=== PATIENT | female | born 1935 | race African-American/Black ===

== ENCOUNTER → 2017-04-29 | Emergency (ER) | payer OTHER, BC ==
[~2017-04-29] MED LIST: CARVEDILOL 12.5 MG TABLET (FP) ONE; CARVEDILOL 25 MG TABLET (FP) PO ONE
[2017-04-29 01:27] VITALS: TEMP 98.4; BMI 19.7
--- NOTE | 2017-04-29 01:32 | PDOC ---
*Physical Exam - Vital Signs Last Vital Signs Temp Pulse Resp BP Pulse Ox 98.4 F 87 20 212/95 98 04/29/17 01:26 04/29/17 01:26 04/29/17 01:26 04/29/17 01:26 04/29/17 01:26 ED Treatment Course - LABORATORY CBC & Chemistry Diagram: 04/29/17 03:12 04/29/17 03:12 Medical Decision Making - Medical Decision Making 04/29/17 01:32 Pt seen by the Advanced Practice Provider under my direct supervision Ancillary studies reviewed I agree with plan as outlined by the Advanced Practice Provider BRITTANY Fulton *DC/Admit/Observation/Transfer Diagnosis at time of Disposition: Surgical wound hemorrhage after dental procedure - Discharge Dispostion Disposition: TRANSFER ACUTE CARE/OTHER HOSP - Referrals Referrals: Rajni Roca MD [Primary Care Provider] -
--- NOTE | 2017-04-29 03:43 | PDOC ---
History of Present Illness - General Chief Complaint: Toothache Stated Complaint: BLEEDING/TOOTH EXTRACTION Time Seen by Provider: 04/29/17 01:20 History Source: Patient Exam Limitations: No Limitations - History of Present Illness Initial Comments: 04/29/17 03:37 81-year-old female with a history of thrombocytopenia and HTN presents to the emergency department complaining of bleeding to her gums after tooth extraction that was done at approximately noon time today. Patient states approximately 4 hours after her tooth extraction, she noticed some blood oozing which has increased in flow. Patient denies headache, dizziness, lightheadedness, fever, chills, nausea/vomiting, chest pain, shortness of breath, dental pain DDS: Dr. Olmos [phone] 0455hrs: Spoke to Dr. David/ dental resident at [facility] 0502hrs: Spoke to Dr. Valdivia/oral resident accepts 0525hrs: Dr Pemberton/MARIANA MD accepting pt Timing/Duration: 1-3 hours Past History - Past Medical History Allergies/Adverse Reactions: Allergies Allergy/AdvReac Type Severity Reaction Status Date / Time No Known Allergies Allergy Verified 04/29/17 01:26 Home Medications: Ambulatory Orders Aspirin Coated [Ecotrin -] 81 mg PO DAILY 12/19/11 Carvedilol [Coreg] 25 mg PO BID 12/19/11 Atorvastatin Ca [Lipitor] 10 mg PO HS 12/27/15 Hydroxyurea [Droxia] 400 mg PO DAILY 06/12/16 Anemia: No Asthma: No Cancer: No Cardiac Disorders: Yes ("irregular heartbeat") CVA: No COPD: No CHF: No Dementia: No Diabetes: No GI Disorders: No Disorders: No HTN: Yes Hypercholesterolemia: Yes Liver Disease: No Seizures: No Thyroid Disease: No - Surgical History Abdominal Surgery: No Appendectomy: No Cardiac Surgery: No Cholecystectomy: No Lung Surgery: No Neurologic Surgery: No Orthopedic Surgery: Yes (s/p right rotator cuff repair) - Immunization History Immunization Up to Date: Yes - Psycho/Social/Smoking Cessation Hx Anxiety: No Suicidal Ideation: No Smoking History: Never smoked Have you smoked in the past 12 months: No Information on smoking cessation initiated: No Hx Alcohol Use: No Drug/Substance Use Hx: No Substance Use Type: None Hx Substance Use Treatment: No Review of Systems - Review of Systems Able to Perform ROS?: Yes Comments:: 04/29/17 03:44 CONSTITUTIONAL: Absent: fever, chills, diaphoresis, generalized weakness, malaise, loss of appetite HEENT: Absent: rhinorrhea, nasal congestion, throat pain, throat swelling, difficulty swallowing, mouth swelling, ear pain, eye pain, visual Changes CARDIOVASCULAR: Absent: chest pain, loss of consciousness, palpitations, irregular heart rate, peripheral edema RESPIRATORY: Absent: cough, shortness of breath, dyspnea with exertion, orthopnea, wheezing, stridor, hemoptysis SKIN: Absent: rash, itching, pallor HEMATOLOGIC/IMMUNOLOGIC: + Thrombocytopenia Absent: easy bruising, lymphadenopathy, frequent infections ENDOCRINE: Absent: unexplained weight gain, unexplained weight loss, heat intolerance, cold intolerance NEUROLOGIC: Absent: headache, focal weakness or paresthesias, dizziness, unsteady gait, seizure, mental status changes, bladder or bowel incontinence PSYCHIATRIC: Absent: anxiety, depression, suicidal or homicidal ideation, hallucinations. Is the patient limited Turkish proficient: No *Physical Exam - Vital Signs Last Vital Signs Temp Pulse Resp BP Pulse Ox 98.4 F 87 20 212/95 98 04/29/17 01:26 04/29/17 01:26 04/29/17 01:26 04/29/17 01:26 04/29/17 01:26 - Physical Exam Comments: 04/29/17 03:44 GENERAL: Well developed, well nourished. Awake and alert. No acute distress. HEENT: Normocephalic, atraumatic. PERRLA, EOMI. No conjunctival pallor. Sclera are non- icteric. Moist mucous membranes. Oropharynx is clear. NECK: Supple. Full ROM. No JVD. Carotid pulses 2+ and symmetric, without bruits. No thyromegaly. No lymphadenopathy. CARDIOVASCULAR: Regular rate and rhythm. No murmurs, rubs, or gallops. Distal pulses are 2+ and symmetric. PULMONARY: No evidence of respiratory distress. Lungs clear to auscultation bilaterally. No wheezing, rales or rhonchi. SKIN: Warm and dry. Normal capillary refill. No rashes. No jaundice. Right upper right 2nd molar extraction/oozing blood ED Treatment Course - LABORATORY CBC & Chemistry Diagram: 04/29/17 03:12 04/29/17 03:12 *DC/Admit/Observation/Transfer Diagnosis at time of Disposition: Surgical wound hemorrhage after dental procedure - Discharge Dispostion Disposition: TRANSFER ACUTE CARE/OTHER HOSP - Referrals Referrals: Rajni Roca MD [Primary Care Provider] - - Transfer to Acute Care Facility Receiving Facility: [facility]
[2017-04-29 03:48] LABS: BASOPHIL 0.5 % (0-2.0); MCH 22.2 pg (25.7-33.7); MCHC 31.6 g/dl (32.0-36.0); MEAN CELL VOLUME 70.1 fl (80-96); MEAN PLT VOLUME 7.3 fl (7.5-11.1); NEUTROPHILS 74.6 % (42.8-82.8); PLATELET COUNT 1092 K/MM3 (134-434); RDW 16.6 % (11.6-15.6); WHITE BLOOD COUNT 16.5 K/mm3 (4.0-10.0)
[2017-04-29 04:02] LABS: INR 1.26 (0.82-1.09); PROTHROMBIN TIME (PATIENT) 13.9 SEC (9.98-11.88)
[2017-04-29 04:23] LABS: ALBUMIN 3.7 g/dl (3.4-5.0); ALK PHOS 89 U/L (45-117); ANION GAP 8 (8-16); BILIRUBIN,TOTAL 0.8 mg/dL (0.2-1.0); CALCIUM 9.1 mg/dL (8.5-10.1); CO2 29 mmol/L (21-32); CREATININE 1.3 mg/dL (0.55-1.02); GLUCOSE,RANDOM 103 mg/dL (74-106); SGOT/AST 13 U/L (15-37); SGPT/ALT 17 U/L (12-78); TOT PROT 6.5 g/dl (6.4-8.2)
[2017-04-29 07:20] VITALS: BP 205/90; PULSE 77
== END | disposition short-term general hospital (02) ==
LOC: JER 01:10
DX: K91.840 Postprocedural hemorrhage of a digestive system organ or structure following a digestive system procedure (principal); D69.6 Thrombocytopenia, unspecified; I10 Essential (primary) hypertension; I49.9 Cardiac arrhythmia, unspecified; E78.00 Pure hypercholesterolemia, unspecified; Z79.82 Long term (current) use of aspirin
CPT/HCPCS: 36415; 80053; 85025; 85610; 86850; 86900; 86901; 99282-25

== ENCOUNTER 2017-08-14 22:56 | Inpatient (IN) | payer OTHER, BC ==
--- NOTE | 2017-08-15 00:42 | PDOC ---
Attending Attestation - HPI HPI: 08/15/17 02:42 81 F with a significant past medical history of thrombocytopenia, HTN, HLD, irregular heartbeat, who presents to the emergency department with cough and SOB for 4 days. She reports she began to produce clear sputum today. She reports of associated lightheadedness, generalized fatigue, and chest tightness. The patient has been taking Motrin, but daughter reports the patient feels warm. The patient denies any history of asthma or COPD. Pt denies CP or GRIFFITH. Pt denies F/C, n/v/d. Pt denies dysuria, frequency, urgency and hematuria. <Pamella Ag - Last Filed: 08/15/17 02:42> - Resident Resident Name: Ian Magallanes - ED Attending Attestation I have performed the following: I have examined & evaluated the patient, The case was reviewed & discussed with the resident, I agree w/resident's findings & plan, Exceptions are as noted - Physicial Exam PE: GENERAL: Awake, alert, and fully oriented, in no acute distress HEAD: No signs of trauma EYES: PERRLA, EOMI, sclera anicteric, conjunctiva clear ENT: Auricles normal inspection, hearing grossly normal, nares patent, oropharynx clear without exudates. Moist mucosa NECK: Normal ROM, supple, no lymphadenopathy, JVD, or masses LUNGS: +Rhonchi at bases B/L. Intermittent loose cough. HEART: Regular rate and rhythm, normal S1 and S2, no murmurs, rubs or gallops ABDOMEN: Soft, nontender, normoactive bowel sounds. No guarding, no rebound. No masses EXTREMITIES: Normal range of motion, no edema. No clubbing or cyanosis. No cords, erythema, or tenderness NEUROLOGICAL: Cranial nerves II through XII grossly intact. Normal speech, normal gait SKIN: Warm, Dry, normal turgor, no rashes or lesions noted. - Medical Decision Making 08/15/17 04:05 Pt with loose cough, weakness, ill-appearing. D/w Dr. Roca, will admit. <Jocy Saavedra - Last Filed: 08/15/17 04:07>
--- NOTE | 2017-08-15 01:09 | PDOC ---
History of Present Illness - General Chief Complaint: Sore Throat Stated Complaint: WEAKNESS Time Seen by Provider: 08/15/17 00:40 - History of Present Illness Initial Comments: 08/15/17 01:01 81 yo F with h/o HTN, HLD and thrombocytopenia who presents with cough. Patient reports developing worsening cough 4 days ago with new onset clear sputum production within past 24 hours. Also endorses SOB, Barnhart, generalized fatigue, lightheadedness, chest tightness, and pleuritic chest pain. Symptoms refractory to OTC Ibuprofen. Denies hemoptysis,fevers/chills, N/V, abdominal pain, urinary complaints, weakness. States that she is unable to take Promethazine, codeine, Dextromethrophan, or Guanifescein d/t hallucinations, and altered mental status reaction. Denies h/o asthma/copd, CAD, [place], CVA/TIA. No home O2 or duoneb requirments. PCP Dr. gomez. Past History - Past Medical History Allergies/Adverse Reactions: Allergies Allergy/AdvReac Type Severity Reaction Status Date / Time promethazine Allergy Verified 08/14/17 23:12 cloreciden Allergy Uncoded 08/14/17 23:14 Home Medications: Ambulatory Orders Aspirin Coated [Ecotrin -] 81 mg PO DAILY 12/19/11 Carvedilol [Coreg] 25 mg PO BID 12/19/11 Atorvastatin Ca [Lipitor] 10 mg PO HS 12/27/15 Hydroxyurea [Droxia] 400 mg PO DAILY 06/12/16 Azithromycin [Zithromax 250mg Tablets -] 250 mg PO DAILY 5 Days #5 tablet MDD 1 tab 08/15/17 Anemia: No Asthma: No Cancer: No Cardiac Disorders: Yes ("irregular heartbeat") CVA: No COPD: No CHF: No Dementia: No Diabetes: No GI Disorders: No Disorders: No HTN: Yes Hypercholesterolemia: Yes Liver Disease: No Seizures: No Thyroid Disease: No Other medical history: thrombocytopenia - Surgical History Abdominal Surgery: No Appendectomy: No Cardiac Surgery: No Cholecystectomy: No Lung Surgery: No Neurologic Surgery: No Orthopedic Surgery: Yes (s/p right rotator cuff repair) - Immunization History Immunization Up to Date: Yes - Suicide/Smoking/Psychosocial Hx Smoking History: Never smoked Have you smoked in the past 12 months: No Hx Alcohol Use: No Drug/Substance Use Hx: No Substance Use Type: None Hx Substance Use Treatment: No Review of Systems - Review of Systems Comments:: 08/15/17 01:10 GENERAL/CONSTITUTIONAL: + Fatigue. No fever or chills. No weakness. HEAD, EYES, EARS, NOSE AND THROAT: No change in vision. No ear pain or discharge. No sore throat.- CARDIOVASCULAR: No chest pain or shortness of breath RESPIRATORY: + cough. No wheezing, or hemoptysis. GASTROINTESTINAL: No nausea, vomiting, diarrhea or constipation. GENITOURINARY: No dysuria, frequency, or change in urination. MUSCULOSKELETAL: No joint or muscle swelling or pain. No neck or back pain. SKIN: No rash NEUROLOGIC: No headache, vertigo, loss of consciousness, or change in strength/ sensation. ENDOCRINE: No increased thirst. No abnormal weight change HEMATOLOGIC/LYMPHATIC: No anemia, easy bleeding, or history of blood clots. ALLERGIC/IMMUNOLOGIC: No hives or skin allergy. *Physical Exam - Vital Signs Last Vital Signs Temp Pulse Resp BP Pulse Ox 86 20 136/75 98 08/14/17 23:08 08/14/17 23:08 08/14/17 23:08 08/14/17 23:08 - Physical Exam Comments: 08/15/17 01:09 GENERAL: Awake, alert, and fully oriented, in no acute distress HEAD: No signs of trauma, normocephalic, atraumatic EYES: PERRLA, EOMI, sclera anicteric, conjunctiva clear ENT:Hearing grossly normal, nares patent, oropharynx clear without exudates. Moist mucosa NECK: Normal ROM, supple, no lymphadenopathy, JVD, or masses LUNGS: Coarse BL rales and rhonci. No distress, speaks full sentences, clear to auscultation bilaterally HEART: Regular rate and rhythm, normal S1 and S2, no murmurs, rubs or gallops, peripheral pulses normal and equal bilaterally. EXTREMITIES : Normal inspection, Normal range of motion, no edema. No clubbing or cyanosis. SKIN: Warm, Dry, normal turgor, no rashes or lesions noted. ED Treatment Course - LABORATORY CBC & Chemistry Diagram: 08/15/17 01:20 08/15/17 01:20 Medical Decision Making - Medical Decision Making 08/15/17 01:11 81 yo F with h/o HTN, HLD and thrombocytopenia who presents worsening cough 4 days ago with new onset clear sputum production within past 24 hours.Asx. w/ SOB , Barnhart, generalized fatigue, lightheadedness, chest tightness, and pleuritic chest pain. Denies hemoptysis,fevers/chills, N/V, abdominal pain, urinary complaints, weakness. Denies h/o asthma/copd, CAD, [place], CVA/TIA. No home O2 or duoneb requirments.Physical exam with diffuse coarse lung sounds. Hemodynamically stable. Patient symptoms most likely 2/2 acute bronchitis vs. PNA. ED Course: CBC, CMP, PT/INR CXR, EKG CXR: Right lower lung base increased interstitial markings. 08/15/17 02:03 EKG: NSR with evidence of RBBB, and absent STD, ESTEPHANIA, or TWI. 08/15/17 02:13 WBC: 18.4 08/15/17 02:32 CMP: Unremarkable Per Dr. Wayne patient is stable for discharge but will need to f/u in office today or tommorrow. 08/15/17 03:20 Azithromycin x1 500 mg. Patient discharged with return precautions. Sent Azithromycin to pharmacy. 250 mg PO QD *DC/Admit/Observation/Transfer Diagnosis at time of Disposition: Pneumonia Qualifiers: Pneumonia type: due to unspecified organism Laterality: right Lung location: lower lobe of lung Qualified Code(s): J18.1 - Lobar pneumonia, unspecified organism - Discharge Dispostion Condition at time of disposition: Stable Admit: No - Referrals Referrals: Rajni Roca MD [Primary Care Provider] - - Patient Instructions Printed Discharge Instructions: DI for Pneumonia -- Adult Additional Instructions: Please return to the emergency department with any new or worsening symptoms or concerns. Please follow up with your primary care physician within one week. Please take antibiotics as perscribed. - Post Discharge Activity - Attestations Physician Attestion: 08/15/17 02:35 I attest to the documentation provided in this note.
[2017-08-15 01:56] LABS: BASOPHIL 0.2 % (0-2.0); MCHC 32.2 g/dl (32.0-36.0); MEAN CELL VOLUME 77.5 fl (80-96); MEAN PLT VOLUME 7.8 fl (7.5-11.1); NEUTROPHILS 87.4 % (42.8-82.8); PLATELET COUNT 748 K/MM3 (134-434); RDW 22.5 % (11.6-15.6); WHITE BLOOD COUNT 18.4 K/mm3 (4.0-10.0)
[2017-08-15 02:09] LABS: INR 1.28 (0.82-1.09); PROTHROMBIN TIME (PATIENT) 14.5 SEC (9.98-11.88)
[2017-08-15 02:19] LABS: ALBUMIN 3.4 g/dl (3.4-5.0); ANION GAP 8 (8-16); CALCIUM 8.7 mg/dL (8.5-10.1); CO2 28 mmol/L (21-32); CREATININE 1.3 mg/dL (0.55-1.02); GLUCOSE,RANDOM 144 mg/dL (74-106); SGOT/AST 16 U/L (15-37); SGPT/ALT 17 U/L (12-78)
[2017-08-15 02:21] LABS: ALK PHOS 90 U/L (45-117); BILIRUBIN,TOTAL 1.1 mg/dL (0.2-1.0); TOT PROT 6.6 g/dl (6.4-8.2)
[2017-08-15 02:33] LABS: URINE APPEARANCE SLCLOUDY; URINE BILIRUBIN NEGATIVE (NEGATIVE); URINE BLOOD NEGATIVE (NEGATIVE); URINE COLOR AMBER; URINE GLUCOSE (UA) NEGATIVE (NEGATIVE); URINE KETONE NEGATIVE (NEGATIVE); URINE NITRITE NEGATIVE (NEGATIVE); URINE UROBILINOGEN NEGATIVE mg/dL (0.2-1.0)
[2017-08-15 02:44] LABS: URINE LEUK ESTERASE 2+ (NEGATIVE); URINE PROTEIN 2+ (NEGATIVE)
[2017-08-15 02:52] LABS: URINE HYALINE CAST 2 /lpf; URINE MUCUS RARE; URINE RBC 8 /hpf (0-3); URINE WBC 3 /hpf (3-5)
[2017-08-15] MEDS ORDERED: AZITHROMYCIN 500 MG TABLET PO ONE (02:59)
[2017-08-15] MEDS ORDERED: CEFTRIAXONE 1 GM in DEXTROSE 5%-WATER - 50 ML IVPB ONE (03:27)
[2017-08-15] MEDS ORDERED: AZITHROMYCIN IVPB 500 MG in DEXTROSE 5%-WATER - 250 ML IVPB ONE (03:27)
[2017-08-15] MEDS ORDERED: ONDANSETRON 4 MG/2 ML VIAL IVPB ONE (05:08)
[2017-08-15] MEDS ORDERED: CEFTRIAXONE 1 GM/50 ML BAG ONE (07:33)
[2017-08-15 09:12] LABS: URINE LEUK ESTERASE TRACE (NEGATIVE)
[2017-08-15] MEDS ORDERED: guaiFENesin/D-METHORPHAN HB 10 ML UNIT-DOSE CUPS PO PRN (09:25)
--- NOTE | 2017-08-15 09:40 | HP ---
Admitting History and Physical - Admission Chief Complaint: productive cough / general malaise / weaknes History of Present Illness: 81 yo F with h/o HTN, HLD and thrombocythemia ( on Hydroxyurea) who presents with cough. Patient reports developing worsening cough 4 days ago with new onset clear sputum production within past 24 hours. Also endorses SOB, Barnhart, generalized fatigue, lightheadedness, chest tightness, and pleuritic chest pain. Symptoms refractory to OTC Ibuprofen. Denies hemoptysis,fevers/chills, N/V , abdominal pain, urinary complaints, weakness. States that she is unable to take Promethazine, codeine, Dextromethrophan, or Guanifescein d/t hallucinations , and altered mental status reaction. Denies h/o asthma/copd, CAD, [place], CVA/TIA. No home O2 or duoneb requirments. History Source: Patient, Medical Record, Caregiver Limitations to Obtaining History: No Limitations - Past Medical History Cardiovascular: Yes: HTN Pulmonary: No: Asthma, COPD, O2 Dependent Reproductive: Yes: Postmenopausal Heme/Onc: Yes: Other (thrombocythemia) - Smoking History Smoking history: Never smoked Have you smoked in the past 12 months: No - Alcohol/Substance Use Hx Alcohol Use: No - Social History ADL: Support Services History of Recent Travel: No Home Medications - Allergies Allergies/Adverse Reactions: Allergies Allergy/AdvReac Type Severity Reaction Status Date / Time promethazine Allergy Verified 08/14/17 23:12 cloreciden Allergy Uncoded 08/14/17 23:14 - Home Medications Home Medications: Ambulatory Orders Aspirin Coated [Ecotrin -] 81 mg PO DAILY 12/19/11 Carvedilol [Coreg] 25 mg PO BID 12/19/11 Atorvastatin Ca [Lipitor] 10 mg PO HS 12/27/15 Hydroxyurea [Droxia] 400 mg PO DAILY 06/12/16 Review of Systems - Review of Systems Constitutional: reports: Chills, Malaise, Weakness. denies: Fever, Night Sweats Eyes: reports: No Symptoms HENT: denies: Difficult Swallowing, Nasal Congestion, Throat Pain Neck: reports: No Symptoms Cardiovascular: reports: Shortness of Breath, Other (atypical chest pain / pleuritic chest pain) Respiratory: reports: Cough, SOB Gastrointestinal: reports: No Symptoms Genitourinary: reports: No Symptoms Breasts: reports: No Symptoms Reported Musculoskeletal: reports: Joint Pain Integumentary: reports: No Symptoms Endocrine: reports: No Symptoms Hematology/Lymphatic: reports: No Symptoms Psychiatric: reports: No Symptoms Physical Examination Vital Signs: Vital Signs Temperature 99 F 08/15/17 08:07 Pulse Rate 98 H 08/15/17 08:07 Respiratory Rate 19 08/15/17 08:07 Blood Pressure 150/93 08/15/17 08:07 O2 Sat by Pulse Oximetry (%) 98 08/15/17 08:07 Constitutional: Yes: Well Nourished, Mild Distress (due to coughing) Eyes: Yes: WNL HENT: Yes: WNL, Atraumatic, Normocephalic Neck: Yes: Supple, Trachea Midline, Other (no JVD) Cardiovascular: Yes: Regular Rate and Rhythm Respiratory: Yes: Cough, On Nasal O2, Rhonchi (left lower / mid post thorax). No: Accessory Muscle Use, Dullness, Rales, Wheezes Gastrointestinal: Yes: WNL ...Rectal Exam: Yes: Deferred Renal/: Yes: WNL Musculoskeletal: Yes: WNL Extremities: Yes: WNL Edema: No Peripheral Pulses: Left Radial: 2+, Right Radial: 2+, Left Doralis Pedis: 2+, Right Dorsalis Pedis: 2+, Left Femoral: 2+, Right Femoral: 2+ Integumentary: Yes: WNL Neurological: Yes: Alert, Oriented ...Motor Strength: WNL Psychiatric: Yes: Alert, Oriented Labs: CBC, BMP 08/15/17 01:20 08/15/17 01:20 Problem List - Problems (1) Tracheobronchitis Assessment/Plan: acute presentation / along with fever / general malaise and cough no infiltrate on cxr scattered rhonchi / congestion on exam Code(s): J40 - BRONCHITIS, NOT SPECIFIED ACUTE OR CHRONIC (2) Pneumonia Assessment/Plan: tx for atypical pneumonia clinically congested and scattered rhonchi productive cough Code(s): J18.9 - PNEUMONIA, UNSPECIFIED ORGANISM Qualifiers: Pneumonia type: due to unspecified organism Laterality: bilateral Lung location: unspecified part of lung Qualified Code(s): J18.9 - Pneumonia, unspecified organism (3) HTN (hypertension) Assessment/Plan: continue medications monitor BP Code(s): I10 - ESSENTIAL (PRIMARY) HYPERTENSION (4) HLD (hyperlipidemia) Code(s): E78.5 - HYPERLIPIDEMIA, UNSPECIFIED (5) Thrombocythemia Code(s): D47.3 - ESSENTIAL (HEMORRHAGIC) THROMBOCYTHEMIA (6) Headache Code(s): R51 - HEADACHE Qualifiers: Headache type: unspecified Headache chronicity pattern: episodic headache Intractability: not intractable Qualified Code(s): R51 - Headache (7) Lightheadedness Code(s): R42 - DIZZINESS AND GIDDINESS
[2017-08-15] MEDS ORDERED: CEFTRIAXONE 1 G/50 ML PREMIX 50 ML IVPB SCH (10:00)
[2017-08-15] MEDS ORDERED: CEFTRIAXONE 1 GM in DEXTROSE 5%-WATER - 100 ML IVPB SCH (10:00)
[2017-08-15] MEDS: HYDROXYUREA 500 MG CAPSULE PO SCH (10:59)
[2017-08-15] MEDS: ASPIRIN COATED 81 MG TABLET.EC PO SCH (10:59)
[2017-08-15] MEDS: CARVEDILOL 25 MG TABLET (FP) PO SCH ×2 (10:59→21:11)
[2017-08-15] MEDS: PANTOPRAZOLE 20 MG TABLET (FP) PO SCH (10:59)
[2017-08-15] MEDS ORDERED: ALBUTEROL SO4 2.5/IPRATROPIUM 0.5 INH SOL 3 ML VIAL.NEB. NEB ONE (14:13)
[2017-08-15] MEDS: ALBUTEROL SO4 2.5/IPRATROPIUM 0.5 INH SOL 3 ML VIAL.NEB. NEB SCH ×2 (14:19→21:50)
--- NOTE | 2017-08-15 14:42 | EKG ---
Test Reason : Blood Pressure : / mmHG Vent. Rate : 086 BPM Atrial Rate : 086 BPM P-R Int : 146 ms QRS Dur : 118 ms QT Int : 404 ms P-R-T Axes : 000 081 031 degrees QTc Int : 483 ms SINUS RHYTHM WITH PREMATURE ATRIAL COMPLEXES RIGHT BUNDLE BRANCH BLOCK ABNORMAL ECG WHEN COMPARED WITH ECG OF 12-JUN-2016 17:49, ST NO LONGER ELEVATED IN INFERIOR LEADS Confirmed by LUZ PALOMARES, IAIN ([id number]) on 08/15/2017 2:42:13 PM Referred By: Confirmed By:IAIN ESCOBAR MD
[2017-08-15] MEDS ORDERED: ACETAMINOPHEN 325 MG TABLET (FP) PO ONE (15:38)
[2017-08-15] MEDS: ACETAMINOPHEN 325 MG TABLET (FP) PO SCH (17:56)
[2017-08-15] MEDS: ATORVASTATIN CA 10 MG TABLET (FP) PO SCH (21:11)
[2017-08-16] MEDS: ACETAMINOPHEN 325 MG TABLET (FP) PO SCH ×4 (00:27→18:46)
[2017-08-16] MEDS: ALBUTEROL SO4 2.5/IPRATROPIUM 0.5 INH SOL 3 ML VIAL.NEB. NEB SCH ×3 (06:56→23:43)
[2017-08-16 08:04] LABS: BASOPHIL 0.1 % (0-2.0); MCH 24.8 pg (25.7-33.7); MCHC 31.9 g/dl (32.0-36.0); MEAN CELL VOLUME 77.7 fl (80-96); MEAN PLT VOLUME 7.6 fl (7.5-11.1); NEUTROPHILS 73.5 % (42.8-82.8); PLATELET COUNT 675 K/MM3 (134-434); RDW 21.8 % (11.6-15.6); WHITE BLOOD COUNT 13.2 K/mm3 (4.0-10.0)
[2017-08-16 08:28] LABS: ANION GAP 9 (8-16); CO2 25 mmol/L (21-32); GLUCOSE,RANDOM 89 mg/dL (74-106)
[2017-08-16 08:32] LABS: CREATININE 1.3 mg/dL (0.55-1.02); PHOSPHOROUS 4.1 mg/dL (2.5-4.9)
[2017-08-16] MEDS ORDERED: PT OWN MED DRAWER 7, Y5N ONE (09:37)
[2017-08-16] MEDS: PANTOPRAZOLE 20 MG TABLET (FP) PO SCH (09:39)
[2017-08-16] MEDS: AZITHROMYCIN IVPB 250 MG in DEXTROSE 5%-WATER - 250 ML IVPB SCH (09:39)
[2017-08-16] MEDS: HYDROXYUREA 500 MG CAPSULE PO SCH (09:39)
[2017-08-16] MEDS: CARVEDILOL 25 MG TABLET (FP) PO SCH ×2 (09:39→21:46)
[2017-08-16] MEDS: ASPIRIN COATED 81 MG TABLET.EC PO SCH (09:39)
[2017-08-16 10:19] LABS: ANISOCYTOSIS 3+; HYPOCHROMIA 0; MACROCYTOSIS 0; MICROCYTOSIS 3+; OVALOCYTE 1+; PLATELET ESTIMATE INCREASED; POIKILOCYTOSIS 2+; POLYCHROMASIA 0
[2017-08-16] MEDS: CEFTRIAXONE 1 G/50 ML PREMIX 50 ML IVPB SCH (11:14)
--- NOTE | 2017-08-16 19:34 | PN ---
Progress Note (short form) - Note Progress Note: continues with cough feeling better but still weak Vital Signs Period Temp Pulse Resp BP Sys/Murdock Pulse Ox Last 24 Hr 97.7 F-99.7 F 82-90 18-20 99-154/53-70 96-98 neck supple heart reg lungs rhonchi right mid firld abd soft non tender ext no edema CBC, BMP 08/16/17 06:30 08/16/17 06:30 CXR - no infiltrate Active Medications Acetaminophen (Tylenol -) 650 mg PO Q6HPO [facility] Last Admin: 08/16/17 18:46 Dose: Not Given Albuterol/Ipratropium (Duoneb -) 1 amp NEB TIDR [facility] Last Admin: 08/16/17 14:00 Dose: 1 amp Aspirin (Ecotrin -) 81 mg PO DAILY [facility] Last Admin: 08/16/17 09:39 Dose: 81 mg Atorvastatin Calcium (Lipitor -) 10 mg PO HS [facility] Last Admin: 08/15/17 21:11 Dose: 10 mg Carvedilol (Coreg -) 25 mg PO BID [facility] Last Admin: 08/16/17 09:39 Dose: 25 mg Hydroxyurea (Hydrea -) 500 mg PO DAILY [facility] Last Admin: 08/16/17 09:39 Dose: 500 mg Azithromycin 250 mg/ Dextrose 250 mls @ 250 mls/hr IVPB DAILY [facility] Last Admin: 08/16/17 09:39 Dose: 250 mls/hr CEFTRIAXONE 1 G/50 ML PREMIX (Ceftriaxone 1 Gm-D5w Bag) 50 mls @ 100 mls/hr IVPB DAILY [facility] Last Admin: 08/16/17 11:14 Dose: 100 mls/hr Pantoprazole Sodium (Protonix -) 20 mg PO DAILY [facility] Last Admin: 08/16/17 09:39 Dose: 20 mg Problem List - Problems (1) Tracheobronchitis Assessment/Plan: acute presentation / along with fever / general malaise and cough no infiltrate on cxr scattered rhonchi / congestion on exam tx IV abx coverage for atypical PNA nebulizer / O2 Code(s): J40 - BRONCHITIS, NOT SPECIFIED ACUTE OR CHRONIC (2) Pneumonia Assessment/Plan: tx for atypical pneumonia clinically congested and scattered rhonchi productive cough minimal improvement from admission Code(s): J18.9 - PNEUMONIA, UNSPECIFIED ORGANISM Qualifiers: Pneumonia type: due to unspecified organism Laterality: bilateral Lung location: unspecified part of lung Qualified Code(s): J18.9 - Pneumonia, unspecified organism (3) HTN (hypertension) Assessment/Plan: continue medications monitor BP Code(s): I10 - ESSENTIAL (PRIMARY) HYPERTENSION (4) HLD (hyperlipidemia) Code(s): E78.5 - HYPERLIPIDEMIA, UNSPECIFIED (5) Thrombocythemia Code(s): D47.3 - ESSENTIAL (HEMORRHAGIC) THROMBOCYTHEMIA (6) Headache Code(s): R51 - HEADACHE Qualifiers: Headache type: unspecified Headache chronicity pattern: episodic headache Intractability: not intractable Qualified Code(s): R51 - Headache (7) Lightheadedness Code(s): R42 - DIZZINESS AND GIDDINESS
[2017-08-16] MEDS: ATORVASTATIN CA 10 MG TABLET (FP) PO SCH (21:46)
[2017-08-17] MEDS: ALBUTEROL SO4 2.5/IPRATROPIUM 0.5 INH SOL 3 ML VIAL.NEB. NEB SCH ×3 (07:34→21:45)
[2017-08-17] MEDS: PANTOPRAZOLE 20 MG TABLET (FP) PO SCH (09:24)
[2017-08-17] MEDS: AZITHROMYCIN IVPB 250 MG in DEXTROSE 5%-WATER - 250 ML IVPB SCH (09:24)
[2017-08-17] MEDS: ASPIRIN COATED 81 MG TABLET.EC PO SCH (09:24)
[2017-08-17] MEDS: CEFTRIAXONE 1 G/50 ML PREMIX 50 ML IVPB SCH (09:24)
[2017-08-17] MEDS: HYDROXYUREA 500 MG CAPSULE PO SCH (09:24)
[2017-08-17] MEDS: CARVEDILOL 25 MG TABLET (FP) PO SCH ×2 (09:24→22:46)
[2017-08-17] MEDS: ACETAMINOPHEN 325 MG TABLET (FP) PO SCH (14:53)
[2017-08-17] MEDS ORDERED: guaiFENesin 200 MG/10 ML 10 ML UNIT-DOSE CUPS PO PRN (15:34)
--- NOTE | 2017-08-17 15:44 | PN ---
Progress Note (short form) - Note Progress Note: feeling weak / spoke to daughter via phone discussed progress and allergies - states has tolerated Guaifenesin in the past will add guaifenesin Vital Signs Period Temp Pulse Resp BP Sys/Murdock Pulse Ox Last 24 Hr 97.7 F-99.7 F 82-90 18-20 99-154/53-70 96-98 neck supple heart reg lungs rhonchi right mid firld abd soft non tender ext no edema CBC, BMP 08/16/17 06:30 08/16/17 06:30 CXR - no infiltrate Active Medications Acetaminophen (Tylenol -) 650 mg PO Q6HPO [facility] Last Admin: 08/17/17 14:53 Dose: Not Given Albuterol/Ipratropium (Duoneb -) 1 amp NEB TIDR [facility] Last Admin: 08/17/17 14:00 Dose: 1 amp Aspirin (Ecotrin -) 81 mg PO DAILY [facility] Last Admin: 08/17/17 09:24 Dose: 81 mg Atorvastatin Calcium (Lipitor -) 10 mg PO HS [facility] Last Admin: 08/16/17 21:46 Dose: 10 mg Carvedilol (Coreg -) 25 mg PO BID [facility] Last Admin: 08/17/17 09:24 Dose: 25 mg Guaifenesin (Robitussin -) 10 ml PO Q4H PRN PRN Reason: COUGH Guaifenesin (Robitussin -) 10 ml PO TID [facility] Hydroxyurea (Hydrea -) 500 mg PO DAILY [facility] Last Admin: 08/17/17 09:24 Dose: 500 mg Azithromycin 250 mg/ Dextrose 250 mls @ 250 mls/hr IVPB DAILY [facility] Last Admin: 08/17/17 09:24 Dose: 250 mls/hr CEFTRIAXONE 1 G/50 ML PREMIX (Ceftriaxone 1 Gm-D5w Bag) 50 mls @ 100 mls/hr IVPB DAILY [facility] Last Admin: 08/17/17 09:24 Dose: 100 mls/hr Pantoprazole Sodium (Protonix -) 20 mg PO DAILY [facility] Last Admin: 08/17/17 09:24 Dose: 20 mg Problem List - Problems (1) Tracheobronchitis Assessment/Plan: acute presentation / along with fever / general malaise and cough no infiltrate on cxr scattered rhonchi / congestion on exam tx IV abx coverage for atypical PNA nebulizer / O2 add guaifenesin -- observe for side effects continue with nebulizer Code(s): J40 - BRONCHITIS, NOT SPECIFIED ACUTE OR CHRONIC (2) Pneumonia Assessment/Plan: tx for atypical pneumonia clinically congested and scattered rhonchi productive cough mild improvement from admission Code(s): J18.9 - PNEUMONIA, UNSPECIFIED ORGANISM Qualifiers: Pneumonia type: due to unspecified organism Laterality: bilateral Lung location: unspecified part of lung Qualified Code(s): J18.9 - Pneumonia, unspecified organism (3) HTN (hypertension) Code(s): I10 - ESSENTIAL (PRIMARY) HYPERTENSION (4) HLD (hyperlipidemia) Code(s): E78.5 - HYPERLIPIDEMIA, UNSPECIFIED (5) Thrombocythemia Code(s): D47.3 - ESSENTIAL (HEMORRHAGIC) THROMBOCYTHEMIA (6) Headache Code(s): R51 - HEADACHE Qualifiers: Headache type: unspecified Headache chronicity pattern: episodic headache Intractability: not intractable Qualified Code(s): R51 - Headache (7) Lightheadedness Code(s): R42 - DIZZINESS AND GIDDINESS
[2017-08-17] MEDS: guaiFENesin 200 MG/10 ML 10 ML UNIT-DOSE CUPS PO SCH ×2 (15:56→22:46)
[2017-08-17] MEDS: ATORVASTATIN CA 10 MG TABLET (FP) PO SCH (22:46)
[2017-08-18] MEDS: ACETAMINOPHEN 325 MG TABLET (FP) PO SCH ×4 (00:21→19:14)
[2017-08-18] MEDS ORDERED: PT OWN MED DRAWER 7, Y5N ONE ×2 (05:48→09:27)
[2017-08-18] MEDS: ALBUTEROL SO4 2.5/IPRATROPIUM 0.5 INH SOL 3 ML VIAL.NEB. NEB SCH ×2 (06:05→13:54)
[2017-08-18] MEDS: guaiFENesin 200 MG/10 ML 10 ML UNIT-DOSE CUPS PO SCH ×3 (06:19→22:01)
[2017-08-18 08:42] LABS: ANION GAP 7 (8-16); CALCIUM 8.3 mg/dL (8.5-10.1); CO2 28 mmol/L (21-32); CREATININE 1.2 mg/dL (0.55-1.02); GLUCOSE,RANDOM 83 mg/dL (74-106); MAGNESIUM 2.2 mg/dL (1.8-2.4)
[2017-08-18 08:43] LABS: MCH 24.7 pg (25.7-33.7); MCHC 31.9 g/dl (32.0-36.0); MEAN CELL VOLUME 77.7 fl (80-96); MEAN PLT VOLUME 7.4 fl (7.5-11.1); PLATELET COUNT 804 K/MM3 (134-434); RDW 21.9 % (11.6-15.6); WHITE BLOOD COUNT 10.1 K/mm3 (4.0-10.0)
[2017-08-18] MEDS: ASPIRIN COATED 81 MG TABLET.EC PO SCH (10:00)
[2017-08-18] MEDS: PANTOPRAZOLE 20 MG TABLET (FP) PO SCH (10:00)
[2017-08-18] MEDS: CARVEDILOL 25 MG TABLET (FP) PO SCH ×2 (10:00→22:00)
[2017-08-18] MEDS: HYDROXYUREA 500 MG CAPSULE PO SCH (10:00)
[2017-08-18] MEDS: CEFTRIAXONE 1 G/50 ML PREMIX 50 ML IVPB SCH (10:00)
[2017-08-18] MEDS: AZITHROMYCIN IVPB 250 MG in DEXTROSE 5%-WATER - 250 ML IVPB SCH (11:28)
[2017-08-18] MEDS: ATORVASTATIN CA 10 MG TABLET (FP) PO SCH (22:00)
--- NOTE | 2017-08-18 22:50 | PN ---
Progress Note (short form) - Note Progress Note: still weak but seems better continues coughing no SOB / Vital Signs Period Temp Pulse Resp BP Sys/Murdock Pulse Ox Last 24 Hr 97.7 F-99.7 F 82-90 18-20 99-154/53-70 96-98 neck supple heart reg lungs rhonchi right mid firld abd soft non tender ext no edema CBC, BMP 08/18/17 07:00 08/18/17 07:00 CXR - no infiltrate Active Medications Acetaminophen (Tylenol -) 650 mg PO Q6HPO [facility] Last Admin: 08/18/17 19:14 Dose: Not Given Albuterol/Ipratropium (Duoneb -) 1 amp NEB TIDR [facility] Last Admin: 08/18/17 13:54 Dose: 1 amp Aspirin (Ecotrin -) 81 mg PO DAILY [facility] Last Admin: 08/18/17 10:00 Dose: 81 mg Atorvastatin Calcium (Lipitor -) 10 mg PO HS [facility] Last Admin: 08/18/17 22:00 Dose: 10 mg Carvedilol (Coreg -) 25 mg PO BID [facility] Last Admin: 08/18/17 22:00 Dose: 25 mg Guaifenesin (Robitussin -) 10 ml PO Q4H PRN PRN Reason: COUGH Guaifenesin (Robitussin -) 10 ml PO TID [facility] Last Admin: 08/18/17 22:01 Dose: 10 ml Hydroxyurea (Hydrea -) 500 mg PO DAILY [facility] Last Admin: 08/18/17 10:00 Dose: 500 mg Azithromycin 250 mg/ Dextrose 250 mls @ 250 mls/hr IVPB DAILY [facility] Last Admin: 08/18/17 11:28 Dose: 250 mls/hr CEFTRIAXONE 1 G/50 ML PREMIX (Ceftriaxone 1 Gm-D5w Bag) 50 mls @ 100 mls/hr IVPB DAILY [facility] Last Admin: 08/18/17 10:00 Dose: 100 mls/hr Pantoprazole Sodium (Protonix -) 20 mg PO DAILY [facility] Last Admin: 08/18/17 10:00 Dose: 20 mg Problem List - Problems (1) Tracheobronchitis Assessment/Plan: acute presentation / along with fever / general malaise and cough no infiltrate on cxr scattered rhonchi / congestion on exam tx abx to PO coverage for atypical PNA nebulizer / O2 tolerating guaifenesin continue with nebulizer Code(s): J40 - BRONCHITIS, NOT SPECIFIED ACUTE OR CHRONIC (2) Pneumonia Assessment/Plan: tx for atypical pneumonia productive cough improvement from admission Code(s): J18.9 - PNEUMONIA, UNSPECIFIED ORGANISM Qualifiers: Pneumonia type: due to unspecified organism Laterality: bilateral Lung location: unspecified part of lung Qualified Code(s): J18.9 - Pneumonia, unspecified organism (3) HTN (hypertension) Assessment/Plan: continue medications monitor BP Code(s): I10 - ESSENTIAL (PRIMARY) HYPERTENSION (4) HLD (hyperlipidemia) Code(s): E78.5 - HYPERLIPIDEMIA, UNSPECIFIED (5) Thrombocythemia Code(s): D47.3 - ESSENTIAL (HEMORRHAGIC) THROMBOCYTHEMIA (6) Headache Code(s): R51 - HEADACHE Qualifiers: Headache type: unspecified Headache chronicity pattern: episodic headache Intractability: not intractable Qualified Code(s): R51 - Headache (7) Lightheadedness Code(s): R42 - DIZZINESS AND GIDDINESS
[2017-08-19] MEDS: ALBUTEROL SO4 2.5/IPRATROPIUM 0.5 INH SOL 3 ML VIAL.NEB. NEB SCH ×3 (00:30→14:18)
[2017-08-19] MEDS: ACETAMINOPHEN 325 MG TABLET (FP) PO SCH ×3 (00:36→13:34)
[2017-08-19 05:10] VITALS: TEMP 97.8
[2017-08-19] MEDS: guaiFENesin 200 MG/10 ML 10 ML UNIT-DOSE CUPS PO SCH ×2 (05:42→13:33)
[2017-08-19] MEDS: ASPIRIN COATED 81 MG TABLET.EC PO SCH (09:45)
[2017-08-19] MEDS: CARVEDILOL 25 MG TABLET (FP) PO SCH (09:45)
[2017-08-19] MEDS: CEFTRIAXONE 1 G/50 ML PREMIX 50 ML IVPB SCH (09:45)
[2017-08-19] MEDS: HYDROXYUREA 500 MG CAPSULE PO SCH (09:45)
[2017-08-19] MEDS: PANTOPRAZOLE 20 MG TABLET (FP) PO SCH (09:45)
[2017-08-19 13:28] VITALS: BP 125/57; PULSE 72
--- NOTE | 2017-08-19 14:22 | DS ---
Physical Examination Vital Signs: Vital Signs Temperature 97.8 F 08/19/17 05:00 Pulse Rate 72 08/19/17 13:00 Respiratory Rate 20 08/19/17 13:00 Blood Pressure 125/57 08/19/17 13:00 O2 Sat by Pulse Oximetry (%) 95 08/19/17 09:00 Findings/Remarks: 81 yo F with h/o HTN, HLD and thrombocythemia ( on Hydroxyurea) who presents with cough. Patient reports developing worsening cough 4 days ago with new onset clear sputum production within past 24 hours. Also endorses SOB, Barnhart, generalized fatigue, lightheadedness, chest tightness, and pleuritic chest pain. Symptoms refractory to OTC Ibuprofen. Denies hemoptysis,fevers/chills, N/V , abdominal pain, urinary complaints, weakness. States that she is unable to take Promethazine, codeine, Dextromethrophan,--- she was able to tolerate Guaifenesin during hospital stay. Progressive improvement in her breathing and tolerance for activity. Constitutional: Yes: Well Nourished, No Distress Eyes: Yes: WNL, Conjunctiva Clear, EOM Intact HENT: Yes: Atraumatic, Normocephalic Neck: Yes: Supple, Trachea Midline Cardiovascular: Yes: Regular Rate and Rhythm Respiratory: Yes: Rhonchi (mild rhonchi right midfield / good air movement no wheezing). No: Rales, SOB on Exertion, Stridor, Tachypnea, Wheezes Gastrointestinal: Yes: WNL Renal/: Yes: WNL Breast(s): Yes: WNL Musculoskeletal: Yes: WNL Extremities: Yes: WNL. No: Calf Tenderness, Deformity Edema: No Peripheral Pulses WNL: Yes Peripheral Pulses: Left Radial: 2+, Right Radial: 2+, Left Doralis Pedis: 2+, Right Dorsalis Pedis: 2+, Left Femoral: 2+, Right Femoral: 2+ Integumentary: Yes: WNL Neurological: Yes: WNL ...Motor Strength: WNL Psychiatric: Yes: Alert, Oriented Labs: CBC, BMP 08/18/17 07:00 08/18/17 07:00 Discharge Summary Reason For Visit: PNEUMONIA Current Active Problems HLD (hyperlipidemia) (Acute) HTN (hypertension) (Acute) Pneumonia (Acute) Thrombocythemia (Acute) Tracheobronchitis (Acute) Hospital Course: During hospital stay Tx with nebulizer / abx / and n/c O2 progressive improvement in activity tolerance Daughter and son at bedside at time of d/c-- made aware patient is still weak and will need added time for recovery. instructed to call office if patient should have any problems. Will follow up next week at office Condition: Improved - Instructions Diet, Activity, Other Instructions: Please return to the emergency department with any new or worsening symptoms or concerns. Please follow up with your primary care physician within one week. Please take antibiotics as perscribed. Referrals: Rajni Roca MD [Primary Care Provider] - Disposition: HOME - Home Medications Comprehensive Discharge Medication List: Ambulatory Orders Aspirin Coated [Ecotrin -] 81 mg PO DAILY 12/19/11 Carvedilol [Coreg] 25 mg PO BID 12/19/11 Atorvastatin Ca [Lipitor] 10 mg PO HS 12/27/15 Hydroxyurea [Droxia] 400 mg PO DAILY 06/12/16
== END 2017-08-19 15:22 | disposition home or self-care (01) | DRG 195 ==
LOC: JER 22:56 → JERBED 08-15 03:33 → J6S 08-15 17:27
PROVIDERS: ADMIT Family Medicine; ATTEND Family Medicine
DX: J18.9 Pneumonia, unspecified organism (principal); E78.5 Hyperlipidemia, unspecified; I10 Essential (primary) hypertension; D47.3 Essential (hemorrhagic) thrombocythemia; J40 Bronchitis, not specified as acute or chronic; R51 Headache; R42 Dizziness and giddiness
CPT/HCPCS: 36415; 71010-TC; 71020-TC; 80048; 80053; 81003; 81015; 83735; 84100; 85025; 85027; 85610; 93005; 93010; 94640; 97116-GP; 99283-25; J8999

== ENCOUNTER 2017-10-16 18:31 | Inpatient (IN) | payer OTHER, BC ==
[2017-10-16] MEDS ORDERED: dilTIAZem HCL 50 MG/10 ML - 10 ML VIAL IVPUSH ONE (19:17)
[2017-10-16] MEDS ORDERED: dilTIAZem HCL 125 MG/25 ML - 25 ML VIAL ONE (19:19)
--- NOTE | 2017-10-16 19:37 | PDOC ---
History of Present Illness - General Chief Complaint: Tachycardia Stated Complaint: S.O.B/ FATIGUE Time Seen by Provider: 10/16/17 19:12 History Source: Patient Exam Limitations: No Limitations - History of Present Illness Initial Comments: 10/16/17 19:59 The patient is an 81F with a PMH of thrombocytopenia, HTN, HLD, irregular heartbeat, who presents to the ER with complaints of SOB and weakness. The patient states that she began to feel short of breath last night and continued to wake up feeling like she could not breath. She says this is new for her and she has never felt like this before. She says this morning she woke up feeling weak. She denies any fever, chills, CP, and vomiting. She says she's felt intermittent nausea since her discharge in August for b/l PNA. She says she's had a history of irregular heartbeat but has not seen a mutual fund analyst in 5 years. PCP: Dr. Roca Past History - Past Medical History Allergies/Adverse Reactions: Allergies Allergy/AdvReac Type Severity Reaction Status Date / Time promethazine Allergy Verified 10/16/17 18:37 cloreciden Allergy Uncoded 10/16/17 18:37 Home Medications: Ambulatory Orders Aspirin Coated [Ecotrin -] 81 mg PO DAILY 12/19/11 Carvedilol [Coreg] 25 mg PO BID 12/19/11 Atorvastatin Ca [Lipitor] 10 mg PO HS 12/27/15 Acetaminophen [Tylenol .Regular Strength -] 650 mg PO Q6HPO tablet 08/19/17 Anemia: No Asthma: No Cancer: No Cardiac Disorders: Yes ("irregular heartbeat") CVA: No COPD: No CHF: No Dementia: No Diabetes: No GI Disorders: No Disorders: No HTN: Yes Hypercholesterolemia: Yes Kidney Stones: Yes Liver Disease: No Seizures: No Thyroid Disease: No - Surgical History Abdominal Surgery: No Appendectomy: No Cardiac Surgery: No Cholecystectomy: No Lung Surgery: No Neurologic Surgery: No Orthopedic Surgery: Yes (s/p right rotator cuff repair) - Immunization History Immunization Up to Date: Yes - Suicide/Smoking/Psychosocial Hx Smoking History: Never smoked Have you smoked in the past 12 months: No Hx Alcohol Use: Yes Drug/Substance Use Hx: No Substance Use Type: None Hx Substance Use Treatment: No Review of Systems - Review of Systems Able to Perform ROS?: Yes Comments:: 10/16/17 20:08 GENERAL/CONSTITUTIONAL: Positive for chills and weakness. No fever. HEAD, EYES, EARS, NOSE AND THROAT: No change in vision. No ear pain or discharge. No sore throat. CARDIOVASCULAR: No chest pain, palpitations, or lightheadedness. RESPIRATORY: Positive for shortness of breath. No cough, wheezing, or hemoptysis. GASTROINTESTINAL: Positive for nausea. No vomiting, diarrhea, constipation, or abdominal pain. GENITOURINARY: No dysuria, frequency, hematuria, or change in urination. MUSCULOSKELETAL: No joint or muscle swelling or pain. No neck or back pain. SKIN: No rash or lesions. NEUROLOGIC: No headache, numbness, tingling, weakness, loss of consciousness, or change in strength/sensation. ENDOCRINE: No increased thirst. No abnormal weight change. HEMATOLOGIC/LYMPHATIC: No anemia, easy bleeding, or history of blood clots. ALLERGIC/IMMUNOLOGIC: No hives or skin allergy. Is the patient limited Green[place]ic proficient: No *Physical Exam - Vital Signs Last Vital Signs Temp Pulse Resp BP Pulse Ox 97.5 F L 145 H 18 129/88 100 10/16/17 18:34 10/16/17 19:00 10/16/17 18:34 10/16/17 18:34 10/16/17 19:00 - Physical Exam Comments: 10/16/17 20:08 GENERAL: Well developed, well nourished. Awake and alert. No acute distress. HEENT: Normocephalic, atraumatic. Hearing grossly normal. Moist mucous membranes. PERRLA, EOMI. No conjunctival pallor. Sclera are non-icteric. NECK: Supple. Full ROM. No JVD. CARDIOVASCULAR: Irregularly irregular rate and rhythm. No murmurs, rubs, or gallops. PULMONARY: No evidence of respiratory distress. Lungs clear to auscultation bilaterally. No wheezing, rales or rhonchi. ABDOMINAL: Soft. Non-tender. Non-distended. No rebound or guarding. GENITOURINARY: No CVA tenderness bilaterally. MUSCULOSKELETAL: Normal range of motion at all joints. No bony deformities or tenderness. EXTREMITIES: No cyanosis. No clubbing. No edema. No calf tenderness. SKIN: Warm and dry. Normal capillary refill. No rashes. No jaundice. NEUROLOGICAL: Alert, awake, appropriate. Cranial nerves 2-12 intact. Normal speech. Gait is normal without ataxia. PSYCHIATRIC: Cooperative. Good eye contact. Appropriate mood and affect. Heart Score/ECG Review #1 ECG reviewed & interpreted by me at: 19:15 General ECG Interpretation: Sinus Rhythm, Normal Rate, Normal Intervals, No acute ischemic changes Compared to previous ECG there are: Changes noted (See remarks) 10/16/17 20:12 A-fib Rate 141 QRS 116 QTc 493 New onset a-fib with RVR RBBB noted, unchanged #2 ECG reviewed & interpreted by me at: 19:45 General ECG Interpretation: Sinus Rhythm, Normal Rate, Normal Intervals, No acute ischemic changes Compared to previous ECG there are: Changes noted 10/16/17 20:14 A-fib persistent Rate 100 QRS 114 QTc 510 RBBB continued, unchanged No acute ischemic changes ED Treatment Course - LABORATORY CBC & Chemistry Diagram: 10/16/17 19:35 10/16/17 19:35 - RADIOLOGY Radiology Studies Ordered: Category Date Time Status CHEST X-RAY PORTABLE* [RAD] Stat Radiology 10/16/17 19:17 Ordered - Medications Given in the ED: ED Medications Discontinued Medications Generic Name Dose Route Start Last Admin Trade Name Freq PRN Reason Stop Dose Admin Diltiazem HCl 10 mg 10/16/17 19:17 10/16/17 19:02 Cardizem Injection - IVPUSH 10/16/17 19:18 10 mg ONCE ONE Administration Medical Decision Making - Medical Decision Making 10/16/17 20:15 The patient is an 81F with a PMH of thrombocytopenia, HTN, HLD, irregular heartbeat who presents with SOB and weakness. I am concerned for new onset a- fib causing this weakness, ACS, PE. Pending labs/imaging. Will monitor closely. 10/16/17 21:26 Labs significant for WBC of 20.6, Cr of 1.6 from 1.2 indicating ISMAEL in addition to an infectious process. Mediastinum noted to be widened on CXR. Will order CT's to r/o dissection although the patient's history and clinical presentation do not make dissection at the top of my differential. Of note, the patient had differing b/l arm BP's ( taken multiple times by the RN). With the BP and the widened mediastinum, my suspicion for dissection increased. On further history, the patient denies any long plane or car trips, any hx of cancer, blood clots or hemoptysis, any stasis, or increased swelling in her calfs. 10/17/17 01:[address] Chanelle li/ Lynette consulted and home meds given. *DC/Admit/Observation/Transfer Diagnosis at time of Disposition: Atrial fibrillation Qualifiers: Atrial fibrillation type: paroxysmal Qualified Code(s): I48.0 - Paroxysmal atrial fibrillation - Discharge Dispostion Condition at time of disposition: Stable Admit: Yes - Referrals - Patient Instructions - Post Discharge Activity
[2017-10-16 19:42] LABS: HEMATOCRIT 42.4 % (32.4-45.2); HEMOGLOBIN 13.1 GM/dL (10.7-15.3); MCH 23.6 pg (25.7-33.7); MCHC 30.9 g/dl (32.0-36.0); MEAN CELL VOLUME 76.5 fl (80-96); MEAN PLT VOLUME 8.6 fl (7.5-11.1); PLATELET COUNT 911 K/MM3 (134-434); RBC 5.55 M/mm3 (3.60-5.2); RDW 17.6 % (11.6-15.6); WHITE BLOOD COUNT 20.6 K/mm3 (4.0-10.0)
[2017-10-16] MEDS ORDERED: SODIUM CHLORIDE 0.9% 1000 ML INFUS.BAG IV ONE ×2 (19:59→21:05)
[2017-10-16 20:08] LABS: ALBUMIN 3.6 g/dl (3.4-5.0); ALK PHOS 117 U/L (45-117); ANION GAP 7 (8-16); BILIRUBIN,TOTAL 1.3 mg/dL (0.2-1.0); BLOOD UREA NITROGEN 20 mg/dL (7-18); CALCIUM 8.5 mg/dL (8.5-10.1); CHLORIDE 111 mmol/L (98-107); CO2 26 mmol/L (21-32); CREATININE 1.6 mg/dL (0.55-1.02); GLUCOSE,RANDOM 142 mg/dL (74-106); MAGNESIUM 2.1 mg/dL (1.8-2.4); POTASSIUM 5.4 mmol/L (3.5-5.1); SGOT/AST 25 U/L (15-37); SGPT/ALT 73 U/L (12-78); SODIUM 144 mmol/L (136-145); TOT PROT 6.4 g/dl (6.4-8.2)
[2017-10-16] MEDS ORDERED: dilTIAZem HCL 30 MG TABLET (FP) PO ONE (20:12)
[2017-10-16] MEDS ORDERED: dilTIAZem HCL 30 MG TABLET (FP) ONE (20:13)
[2017-10-16 20:16] LABS: INR 1.32 (0.82-1.09); PROTHROMBIN TIME (PATIENT) 14.9 SEC (9.98-11.88)
[2017-10-16 20:30] LABS: ANISOCYTOSIS 1+; MACROCYTOSIS 1+; OVALOCYTE 1+; PLATELET ESTIMATE SIGNIFICANT INCREASE
--- NOTE | 2017-10-16 20:36 | PDOC ---
Attending Attestation - Resident Resident Name: Linwood Betancourt - ED Attending Attestation I have performed the following: I have examined & evaluated the patient, The case was reviewed & discussed with the resident, I agree w/resident's findings & plan, Exceptions are as noted - HPI HPI: 10/16/17 20:29 81-year-old female with a history of thrombocytopenia, HTN, HLD, irregular heartbeat presents to the emergency department with 24 hours of progressive generalized weakness, shortness of breath, and nausea. On arrival to the emergency department patient was found to be in A. fib with RVR due to the rate of 140s. She was given 10 mg of diltiazem with good response and her heart rate and ordered for 30 mg of oral diltiazem. Patient states the symptoms began yesterday evening, however but she states she really hasn't felt herself for the last 3 days. Denies any chest pain, fevers, chills, abdominal pain, vomiting , diarrhea, headache, numbness. - Physicial Exam PE: 10/16/17 20:32 GENERAL: Awake, alert, and fully oriented, in no acute distress. Speaking in 4- 5 word sentences HEAD: No signs of trauma EYES: PERRLA, EOMI, sclera anicteric, conjunctiva clear ENT: Auricles normal inspection, hearing grossly normal, nares patent, oropharynx clear without exudates. Moist mucosa NECK: Normal ROM, supple, no lymphadenopathy, JVD, or masses LUNGS: Breath sounds equal, clear to auscultation bilaterally. No wheezes, and no crackles HEART: irregularly irregular at rate of 102, normal S1 and S2, no murmurs, rubs or gallops ABDOMEN: Soft, nontender, normoactive bowel sounds. No guarding, no rebound. No masses EXTREMITIES: Normal range of motion, no edema. No clubbing or cyanosis. No cords, erythema, or tenderness NEUROLOGICAL: Normal speech, cranial nerves intact, negative pronator drift, 5/ 5 strength in all 4 extremities, normal sensation to light touch in all 4 extremities, normal cerebellar exam, normal gait, normal reflexes and tone SKIN: Warm, Dry, normal turgor, no rashes or lesions noted. - Medical Decision Making 10/16/17 20:36 81-year-old female with multiple medical problems presents to the emergency department with new onset atrial fibrillation with RVR associated with shortness of breath and weakness. Patient had good response to diltiazem with heart rate now in the high 90s. Differential for weakness, shortness of breath includes but is not limited to ischemia versus pulmonary embolism versus electrolyte abnormality versus dehydration. Plan: -labs -monitor -cxr -admit
[2017-10-16] MEDS ORDERED: LORazepam 2 MG/ML SDV VIAL ONE (22:01)
[2017-10-16] MEDS ORDERED: CARVEDILOL 25 MG TABLET (FP) PO ONE (23:54)
[2017-10-17] MEDS ORDERED: CARVEDILOL 12.5 MG TABLET (FP) ONE (00:04)
[2017-10-17] MEDS ORDERED: VANCOMYCIN 1,000 MG in DEXTROSE 5%-WATER - 250 ML IVPB ONE (00:11)
[2017-10-17] MEDS ORDERED: PIPERACILLIN/TAZOB 3.375 GM/50 ML PRE-DOCKED IV ONE (00:11)
--- NOTE | 2017-10-17 00:26 | HP ---
Admitting History and Physical - Admission History of Present Illness: The patient is an 81F with a PMH of thrombocytosis, HTN, HLD, irregular heartbeat, who presents to the ER with complaints of SOB and weakness. The patient states that she began to feel short of breath last night and continued to wake up feeling like she could not breath. She says this is new for her and she has never felt like this before. She says this morning she woke up feeling weak. She denies any fever, chills, CP, and vomiting. She says she's felt intermittent nausea since her discharge in August for b/l PNA. She says she's had a history of irregular heartbeat but has not seen a energy trader in 5 years. History Source: Patient, Medical Record Limitations to Obtaining History: No Limitations - Past Medical History Cardiovascular: Yes: HTN, Hyperlipdemia Pulmonary: Yes: Pneumonia (admitted for bilat PNA) Reproductive: Yes: Postmenopausal Heme/Onc: Yes: Other (thrombocythemia) - Smoking History Smoking history: Never smoked Have you smoked in the past 12 months: No - Alcohol/Substance Use Hx Alcohol Use: Yes - Social History ADL: Support Services History of Recent Travel: No Home Medications - Allergies Allergies/Adverse Reactions: Allergies Allergy/AdvReac Type Severity Reaction Status Date / Time promethazine Allergy Verified 10/16/17 18:37 cloreciden Allergy Uncoded 10/16/17 18:37 - Home Medications Home Medications: Ambulatory Orders Aspirin Coated [Ecotrin -] 81 mg PO DAILY 12/19/11 Carvedilol [Coreg] 25 mg PO BID 12/19/11 Atorvastatin Ca [Lipitor] 10 mg PO HS 12/27/15 Acetaminophen [Tylenol .Regular Strength -] 650 mg PO Q6HPO tablet 08/19/17 Review of Systems - Review of Systems Constitutional: reports: Diaphoresis. denies: Chills, Fever, Lethargy, Night Sweats Eyes: reports: No Symptoms HENT: reports: No Symptoms Neck: reports: No Symptoms Cardiovascular: reports: Palpitations, Shortness of Breath Respiratory: reports: Orthopnea Gastrointestinal: reports: No Symptoms Genitourinary: reports: No Symptoms Breasts: reports: No Symptoms Reported Musculoskeletal: reports: No Symptoms Integumentary: reports: No Symptoms Neurological: reports: Change in Speech Endocrine: reports: No Symptoms Hematology/Lymphatic: reports: No Symptoms Psychiatric: reports: Anxiety, Depression Physical Examination Vital Signs: Vital Signs Temperature 97.5 F L 10/16/17 18:34 Pulse Rate 112 H 10/16/17 23:58 Respiratory Rate 27 H 10/16/17 23:58 Blood Pressure 120/86 10/16/17 23:58 O2 Sat by Pulse Oximetry (%) 100 10/16/17 23:58 Constitutional: Yes: No Distress, Anxious, Thin Eyes: Yes: WNL, Conjunctiva Clear, EOM Intact HENT: Yes: Atraumatic, Normocephalic Neck: Yes: Supple, Trachea Midline Cardiovascular: Yes: Tachycardia, Pulse Irregular Respiratory: Yes: WNL Gastrointestinal: Yes: Normal Bowel Sounds, Soft ...Rectal Exam: Yes: WNL Renal/: Yes: WNL Breast(s): Yes: WNL Musculoskeletal: Yes: WNL Extremities: Yes: WNL Edema: No Peripheral Pulses WNL: Yes Integumentary: Yes: WNL Neurological: Yes: Alert, Oriented ...Motor Strength: WNL Psychiatric: Yes: Alert, Oriented Labs: CBC, BMP 10/16/17 19:35 10/16/17 19:35 Problem List - Problems (1) Atrial fibrillation Code(s): I48.91 - UNSPECIFIED ATRIAL FIBRILLATION Qualifiers: Atrial fibrillation type: persistent Qualified Code(s): I48.1 - Persistent atrial fibrillation (2) Lightheadedness Code(s): R42 - DIZZINESS AND GIDDINESS (3) Headache Code(s): R51 - HEADACHE Qualifiers: Headache type: unspecified Headache chronicity pattern: episodic headache Intractability: not intractable Qualified Code(s): R51 - Headache (4) Thrombocythemia Code(s): D47.3 - ESSENTIAL (HEMORRHAGIC) THROMBOCYTHEMIA Assessment/Plan # A fib NEW unclear if compliant with coreg? remains with HR 120's start on Eliquis cardiology consulted # inc WBC source / await c/s emperic tx ID consult # CKD baseline ? mild dehydration IVF # HLD fasting lipids need for statins ? # thrombocythemia baseline 600-700
[2017-10-17] MEDS ORDERED: DEXTROSE 5%-0.45% SALINE 1,000 ML IV SCH (00:30)
[2017-10-17] MEDS ORDERED: PIPERACILLIN/TAZOB 3.375 GM 3.375 GM/50 ML BAG IVPB ONE (01:03)
[2017-10-17] MEDS: APIXABAN 2.5 MG TABLET PO SCH ×3 (01:41→21:31)
[2017-10-17 07:26] LABS: BASO % 0.1 % (0-2.0); HEMATOCRIT 35.7 % (32.4-45.2); HEMOGLOBIN 11.1 GM/dL (10.7-15.3); LYMPH % 13.5 % (8-40); MCH 23.5 pg (25.7-33.7); MCHC 31.1 g/dl (32.0-36.0); MEAN CELL VOLUME 75.4 fl (80-96); MEAN PLT VOLUME 8.4 fl (7.5-11.1); MONO % 8.6 % (3.8-10.2); NEUT % 77.8 % (42.8-82.8); PLATELET COUNT 706 K/MM3 (134-434); RBC 4.73 M/mm3 (3.60-5.2); RDW 17.6 % (11.6-15.6); WHITE BLOOD COUNT 16.6 K/mm3 (4.0-10.0)
[2017-10-17 08:21] LABS: ANION GAP 7 (8-16); BLOOD UREA NITROGEN 15 mg/dL (7-18); CHLORIDE 110 mmol/L (98-107); CHOLESTEROL 60 mg/dL (50-200); CO2 20 mmol/L (21-32); CREATININE 1.3 mg/dL (0.55-1.02); LDL CHOLESTEROL (ONLY SJRH) 29 mg/dL (5-100); MAGNESIUM 1.7 mg/dL (1.8-2.4); POTASSIUM 4.2 mmol/L (3.5-5.1); SODIUM 137 mmol/L (136-145); TRIGLYCERIDES 63 mg/dL (35-160)
[2017-10-17 08:22] LABS: HDL CHOLESTEROL 34 mg/dL (40-60)
[2017-10-17 08:35] LABS: CALCIUM 6.8 mg/dL (8.5-10.1); GLUCOSE,RANDOM 490 mg/dL (74-106)
[2017-10-17] MEDS ORDERED: CARVEDILOL 25 MG TABLET (FP) PO SCH (10:00)
[2017-10-17] MEDS ORDERED: ASPIRIN COATED 81 MG TABLET.EC PO SCH (10:00)
[2017-10-17] MEDS ORDERED: MAGNESIUM SULF 50% (8.12 MEQ/2 ML-1 GM VIAL) IVPB ONE (12:32)
[2017-10-17] MEDS: DOCUSATE SODIUM 100 MG CAPSULE (FP) PO SCH ×2 (13:15→21:31)
[2017-10-17] MEDS: RANITIDINE HCL 150 MG TABLET (FP) PO SCH ×2 (13:15→21:31)
[2017-10-17] MEDS ORDERED: CALCIUM GLUCONATE 10% - 1,000 MG in DEXTROSE 5%-WATER - 100 ML IVPB ONE (14:00)
[2017-10-17] MEDS ORDERED: CALCIUM GLUCONATE 10% - 1,000 MG/10 ML VIAL IVPB ONE (14:00)
[2017-10-17 14:34] LABS: ALBUMIN 3.3 g/dl (3.4-5.0); ANION GAP 10 (8-16); BLOOD UREA NITROGEN 17 mg/dL (7-18); CALCIUM 7.9 mg/dL (8.5-10.1); CHLORIDE 112 mmol/L (98-107); CO2 22 mmol/L (21-32); CREATININE 1.4 mg/dL (0.55-1.02); GLUCOSE,RANDOM 107 mg/dL (74-106); MAGNESIUM 1.9 mg/dL (1.8-2.4); POTASSIUM 4.6 mmol/L (3.5-5.1); SODIUM 144 mmol/L (136-145)
--- NOTE | 2017-10-17 14:49 | CON.CARD ---
Cardiology Consult (text) - Consultation Consultation Note: CC: new afib with RVR. 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 The patient states that she began to feel short of breath the night prior to presentation. Had difficulty sleeping b/c of ongoing sob throughout the night. The next day also had significant weakness. On arrival to the emergency department patient was found to be in A. fib with RVR, rate of 140s. She was given 10 mg of diltiazem with improvement in rate to the 90's. Also s/p Diltiazem 30 mg PO x 1. She presented with ISMAEL and yesterday in ER she also received IVF with improvement in kidney function. Home coreg was resumed. She was started on eliquis. Today, states her sob/weakness have resolved. Feels well. No cp, palps, dizziness, orthopnea, pnd, le edema, bleeding. No recent illness. No f/c/s, n/v/d, cough, congestion, h/a, rash, visual disturbances. pmhx/pshx: per hpi, Parathyroid gland removal, rotator cuff surgery. social hx: Never smoked fam hx: no premature cad. ros: per [facility] Ambulatory Orders Aspirin Coated [Ecotrin -] 81 mg PO DAILY 12/19/11 Carvedilol [Coreg] 25 mg PO BID 12/19/11 Atorvastatin Ca [Lipitor] 10 mg PO HS 12/27/15 Acetaminophen [Tylenol .Regular Strength -] 650 mg PO Q6HPO tablet 08/19/17 Current Medications Acetaminophen (Tylenol -) 650 mg PO Q6H PRN PRN Reason: PAIN LEVEL 1-5 Apixaban (Eliquis -) 2.5 mg PO BID [facility] Last Admin: 10/17/17 13:15 Dose: 2.5 mg Aspirin (Ecotrin -) 81 mg PO DAILY [facility] Last Admin: 10/17/17 13:15 Dose: 81 mg Atorvastatin Calcium (Lipitor -) 20 mg PO [facility] Carvedilol (Coreg -) 25 mg PO BID [facility] Last Admin: 10/17/17 13:15 Dose: 25 mg Docusate Sodium (Colace -) 100 mg PO BID [facility] Last Admin: 10/17/17 13:15 Dose: 100 mg Dextrose/Sodium Chloride (D5-1/2ns -) 1,000 mls @ 100 mls/hr IV ASDIR [facility] Last Admin: 10/17/17 00:56 Dose: 100 mls/hr Calcium Gluconate 1,000 mg/ (Dextrose) 110 mls @ 110 mls/hr IVPB ONCE ONE Stop: 10/17/17 14:59 MAGNESIUM SULFATE IN WATER (Magnesium Sulf 2 G/50 Ml Bag) 2 gm in 50 mls @ 50 mls/hr IVPB ONCE ONE Stop: 10/17/17 15:59 Insulin Aspart (Novolog Vial Sliding Scale -) 1 vial SQ ACHS [facility] PRN Reason: Protocol Ranitidine HCl (Zantac -) 150 mg PO BID [facility] Last Admin: 10/17/17 13:15 Dose: 150 mg Vital Signs - 24 hr 10/16/17 10/16/17 10/16/17 18:34 19:00 19:05 Temperature 97.5 F L Pulse Rate 148 H 145 H Pulse Rate [ 145 H Apical] Respiratory 18 24 22 Rate Blood Pressure 129/88 Blood Pressure 120/81 [Left Arm] Blood Pressure 186/165 [Right Arm] O2 Sat by Pulse 100 100 100 Oximetry (%) 10/16/17 10/16/17 10/16/17 19:25 19:36 21:31 Temperature Pulse Rate Pulse Rate [ 95 H 105 H Apical] Respiratory 20 22 Rate Blood Pressure Blood Pressure 118/73 114/79 [Left Arm] Blood Pressure [Right Arm] O2 Sat by Pulse 99 100 99 Oximetry (%) 10/16/17 10/16/17 10/17/17 23:04 23:58 06:51 Temperature Pulse Rate Pulse Rate [ 109 H 112 H 111 H Apical] Respiratory 22 27 H 23 Rate Blood Pressure Blood Pressure 120/86 113/70 [Left Arm] Blood Pressure 131/93 [Right Arm] O2 Sat by Pulse 99 100 97 Oximetry (%) 10/17/17 10/17/17 08:29 11:33 Temperature 98.4 F Pulse Rate 124 H Pulse Rate [ 114 H Apical] Respiratory 19 18 Rate Blood Pressure 138/84 Blood Pressure 128/96 [Left Arm] Blood Pressure [Right Arm] O2 Sat by Pulse 99 99 Oximetry (%) Intake & Output 10/15/17 10/16/17 10/17/17 10/18/17 07:59 07:59 07:59 07:59 Weight 125 lb 120 lb nad, calm, lying flat jvd flat, neck supple trace bibasilar rales, nl effort irregularly, irregular nl s1, s2 . 2/6 sys murmur at sternal border and apex ND PMI + bs soft nt nd, no hsm ext with no e/c/c + dp/pt, no carotid bruit aa0x3 no jaundice, diaphoesis CBC, BMP 10/17/17 06:15 10/17/17 13:40 Laboratory Tests 10/16/17 10/16/17 10/16/17 19:35 19:35 19:35 WBC 20.6 H D INR 1.32 H Potassium 5.4 H BUN 20 H Creatinine 1.6 H Magnesium Total Bilirubin 1.3 H AST 25 ALT 73 Alkaline Phosphatase 117 Creatine Kinase 47 Troponin I 0.03 Albumin Triglycerides Cholesterol Total LDL Cholesterol HDL Cholesterol 10/17/17 10/17/17 06:15 13:40 WBC INR Potassium BUN Creatinine Magnesium 1.9 Total Bilirubin AST ALT Alkaline Phosphatase Creatine Kinase Troponin I Albumin 3.3 L Triglycerides 63 Cholesterol 60 Total LDL Cholesterol 29 HDL Cholesterol 34 L ekg: afib, vr 141 bpm rbbb, septal q. inferior twi. ekg #2: similar, vr 100 bpm. tele: afib, hr's uncontrolled (120's.) echo 10/2017: 1+ lvh, lv sys fn is low normal. grade 2 diastolic dysfunction. rv size/fn. mod lae. mod-sev patsy. mild-mod ar. mod mr. sev tr, mod phtn. chest/abd CTA: no acute aortic pathology. + atherosclerosis. cardiomegaly, small pericardial effusion. refluxed contrast seen in hepatic IVC. Dilated PA (3.5 cm), small bilateral pleural effusions with associated compressive atelectasis vs. infiltrates. 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 thyroid nodule. See emr for further details. 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 New afib - RVR trigger? + volume depletion requiring IVF, infectious eval per pmd. CE neg x 1. EKG with inferior twi. No rwma on echo. 2nd set of enzymes ordered. Ongoing mgm't per pmd - patient still with RVR, but per nursing just received morning dose of coreg ( on 25 mg bid). Will monitor but if Hr remains uncontrolled will transition to PO diltiazem 60 mg q6h and uptitrate as needed. - echo findings noted. preserved LV fn + diastolic dysfunction with phtn. + mod mr. Patient required IVF on admit, not likely to be in HF. daily weights, i/o - now on eliquis, no need for asa, will d/c. - check tsh, lyte repletion prn. htn - has been on long-standing high dose coreg. monitor with med changes. HL - LDL 29, would stop atorvastatin ISMAEL - improving s/p IVF thrombocythemia - platelets chronically elevate 600-700 at baseline.
--- NOTE | 2017-10-17 14:55 | PN ---
Progress Note (short form) - Note Progress Note: seen and examined in room admits has not been feeling well for a "long time" did not follow up due to family problems --though she would get better soon. she states though all her problems was the process of recovery from her PNA () family at bedside confirms she has not been feeling well for last few yrs ... worse over last few months. sitting in bed not in distress / no c/oCP/palpitation/dyspnea Vital Signs Period Temp Pulse Resp BP Sys/Murdock Pulse Ox Last 24 Hr 97.5 F-98.4 F 95-148 18-27 113-186/70-165 97-100 neck supple no JVD hear S1/S2 irregularly irreg -tachy abd soft non tender ext no edema CBC, BMP 10/17/17 06:15 10/17/17 13:40 bmp is repeat -- am labs with glucose 490 / low calcium/mag no replacement given per cardio note : per Cardio note : ekg: afib, vr 141 bpm rbbb, septal q. inferior twi. ekg #2: similar, vr 100 bpm. tele: afib, hr's uncontrolled (120's.) echo 10/2017: 1+ lvh, lv sys fn is low normal. grade 2 diastolic dysfunction. rv size/fn. mod lae. mod-sev patsy. mild-mod ar. mod mr. sev tr, mod phtn. chest/abd CTA: no acute aortic pathology. + atherosclerosis. cardiomegaly, small pericardial effusion. refluxed contrast seen in hepatic IVC. Dilated PA (3.5 cm), small bilateral pleural effusions with associated compressive atelectasis vs. infiltrates. 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 thyroid nodule. See emr for further details. 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 # A fib NEW unclear if compliant with coreg? remains with HR 120's just got dose of coreg this am started on [id number] cardiology consulted # inc WBC source / await c/s emperic tx ID consult # CKD baseline ? Cr improving mild dehydration IVF # HLD fasting lipids need for statins ? # thrombocythemia baseline 600
[2017-10-17] MEDS ORDERED: MAGNESIUM SULFATE IN WATER 2 GM/50 ML IVPB IVPB ONE (15:00)
[2017-10-17] MEDS ORDERED: INSULIN SLIDING SCALE (NOVOLOG) 1 VIAL SQ SCH (16:30)
--- NOTE | 2017-10-17 16:44 | EKG ---
Test Reason : Blood Pressure : / mmHG Vent. Rate : 100 BPM Atrial Rate : 122 BPM P-R Int : 000 ms QRS Dur : 114 ms QT Int : 396 ms P-R-T Axes : 000 071 -76 degrees QTc Int : 510 ms ATRIAL FIBRILLATION RIGHT BUNDLE BRANCH BLOCK T WAVE ABNORMALITY, CONSIDER INFERIOR ISCHEMIA ABNORMAL ECG WHEN COMPARED WITH ECG OF 16-OCT-2017 19:00, NO SIGNIFICANT CHANGE WAS FOUND Confirmed by MD Ben, Fazal ([id number]) on 10/17/2017 4:44:20 PM Referred By: Confirmed By:Fazal Contreras MD
--- NOTE | 2017-10-17 16:45 | EKG ---
Test Reason : Blood Pressure : / mmHG Vent. Rate : 141 BPM Atrial Rate : 131 BPM P-R Int : 000 ms QRS Dur : 116 ms QT Int : 322 ms P-R-T Axes : 000 072 -10 degrees QTc Int : 493 ms ATRIAL FIBRILLATION WITH RAPID VENTRICULAR RESPONSE RIGHT BUNDLE BRANCH BLOCK ABNORMAL ECG WHEN COMPARED WITH ECG OF 15-AUG-2017 01:35, ATRIAL FIBRILLATION HAS REPLACED SINUS RHYTHM VENT. RATE HAS INCREASED BY 55 BPM INVERTED T WAVES HAVE REPLACED NONSPECIFIC T WAVE ABNORMALITY IN INFERIOR LEADS Confirmed by MD Ben, Fazal ([id number]) on 10/17/2017 4:44:46 PM Referred By: Confirmed By:Fazal Contreras MD
[2017-10-17] MEDS ORDERED: dilTIAZem HCL 50 MG/10 ML - 10 ML VIAL IVPUSH ONE (20:54)
[2017-10-17] MEDS: dilTIAZem HCL 60 MG TABLET (FP) PO SCH (21:02)
[2017-10-17] MEDS ORDERED: ATORVASTATIN CA 20 MG TABLET (FP) PO SCH (22:00)
[2017-10-17] MEDS ORDERED: dilTIAZem HCL 50 MG/10 ML - 10 ML VIAL IVPUSH PRN (22:59)
[2017-10-18] MEDS: dilTIAZem HCL 60 MG TABLET (FP) PO SCH ×4 (05:19→17:56)
[2017-10-18 07:17] LABS: BASO % 0.1 % (0-2.0); HEMATOCRIT 38.3 % (32.4-45.2); LYMPH % 20.7 % (8-40); MCH 23.3 pg (25.7-33.7); MCHC 31.4 g/dl (32.0-36.0); MEAN CELL VOLUME 74.2 fl (80-96); MEAN PLT VOLUME 8.2 fl (7.5-11.1); MONO % 9.2 % (3.8-10.2); PLATELET COUNT 765 K/MM3 (134-434); RBC 5.15 M/mm3 (3.60-5.2); RDW 17.7 % (11.6-15.6); WHITE BLOOD COUNT 14.2 K/mm3 (4.0-10.0)
[2017-10-18 07:37] LABS: ANION GAP 9 (8-16); BLOOD UREA NITROGEN 20 mg/dL (7-18); CALCIUM 8.2 mg/dL (8.5-10.1); CHLORIDE 113 mmol/L (98-107); CO2 23 mmol/L (21-32); GLUCOSE,RANDOM 73 mg/dL (74-106); MAGNESIUM 2.2 mg/dL (1.8-2.4); POTASSIUM 4.6 mmol/L (3.5-5.1); SODIUM 145 mmol/L (136-145)
[2017-10-18 07:39] LABS: CREATININE 1.2 mg/dL (0.55-1.02)
[2017-10-18] MEDS: APIXABAN 2.5 MG TABLET PO SCH ×2 (09:40→21:53)
[2017-10-18] MEDS: DOCUSATE SODIUM 100 MG CAPSULE (FP) PO SCH ×2 (09:40→21:53)
[2017-10-18] MEDS: RANITIDINE HCL 150 MG TABLET (FP) PO SCH ×2 (09:40→21:53)
--- NOTE | 2017-10-18 11:58 | PN ---
Progress Note (short form) - Note Progress Note: s: no cp sob palps dizzy o: Vital Signs Period Temp Pulse Resp BP Sys/Murdock Pulse Ox Last 24 Hr 97.7 F-98.6 F 108-139 18-20 126-143/73-91 97 nad, calm, lying flat jvd flat, neck supple trace bibasilar rales, nl effort irregularly, irregular nl s1, s2 . 2/6 sys murmur at sternal border and apex ND PMI + bs soft nt nd, no hsm ext with no e/c/c aa0x3 no jaundice, diaphoesis Current Medications Generic Name Dose Route Start Last Admin Trade Name Freq PRN Reason Stop Dose Admin Acetaminophen 650 mg 10/17/17 00:10 Tylenol - PO Q6H PRN PAIN LEVEL 1-5 Apixaban 2.5 mg 10/17/17 00:30 10/18/17 09:40 Eliquis - PO 2.5 mg BID ANKIT Administration Diltiazem HCl 60 mg 10/17/17 21:00 10/18/17 05:19 Cardizem - PO 60 mg Q6HPO ANKIT Administration Diltiazem HCl 10 mg 10/17/17 22:59 Cardizem Injection - IVPUSH Q4H PRN TACHYCARDIA Docusate Sodium 100 mg 10/17/17 10:00 10/18/17 09:40 Colace - PO 100 mg BID ANKIT Administration Ranitidine HCl 150 mg 10/17/17 10:00 10/18/17 09:40 Zantac - PO 150 mg BID ANKIT Administration CBC, BMP 10/18/17 06:25 10/18/17 06:25 ekg: afib, vr 141 bpm rbbb, septal q. inferior twi. ekg #2: similar, vr 100 bpm. tele: afib, hr's uncontrolled (120's.) echo 10/2017: 1+ lvh, lv sys fn is low normal. grade 2 diastolic dysfunction. rv size/fn. mod lae. mod-sev patsy. mild-mod ar. mod mr. sev tr, mod phtn. chest/abd CTA: no acute aortic pathology. + atherosclerosis. cardiomegaly, small pericardial effusion. refluxed contrast seen in hepatic IVC. Dilated PA (3.5 cm), small bilateral pleural effusions with associated compressive atelectasis vs. infiltrates. 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 thyroid nodule. See emr for further details. 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 New afib - RVR trigger? + volume depletion requiring IVF, infectious eval per pmd. CE neg x 1. EKG with inferior twi. No rwma on echo. 2nd set of enzymes ordered. -- - rvr on coreg, now changed to dilt, monitor tele - echo findings noted. preserved LV fn + diastolic dysfunction with phtn. + mod mr. Patient required IVF on admit, not likely to be in HF. daily weights, i/o - now on eliquis, no need for asa htn - monitor on dilt HL - LDL 29, would stop atorvastatin ISMAEL - improving s/p IVF
[2017-10-18] MEDS ORDERED: CARVEDILOL 25 MG TABLET (FP) PO SCH (13:30)
--- NOTE | 2017-10-18 21:33 | PN ---
Progress Note (short form) - Note Progress Note: comfortable / afebrile sitting in bed not in distress / no c/oCP/palpitation/dyspnea Vital Signs Period Temp Pulse Resp BP Sys/Murdock Pulse Ox Last 24 Hr 97.5 F-98.4 F 95-148 18-27 113-186/70-165 97-100 neck supple no JVD hear S1/S2 irregularly irreg -tachy lungs clear bilat abd soft non tender ext no edema CBC, BMP 10/18/17 06:25 10/18/17 06:25 Microbiology 10/17/17 00:10 Blood - Peripheral Venous Blood Culture - Preliminary NO GROWTH OBTAINED AFTER 24 HOURS, INCUBATION TO CONTINUE FOR 4 DAYS. 10/16/17 00:00 Blood - Peripheral Venous Blood Culture - Preliminary NO GROWTH OBTAINED AFTER 24 HOURS, INCUBATION TO CONTINUE FOR 4 DAYS. Active Medications Acetaminophen (Tylenol -) 650 mg PO Q6H PRN PRN Reason: PAIN LEVEL 1-5 Apixaban (Eliquis -) 2.5 mg PO BID [facility] Last Admin: 10/18/17 09:40 Dose: 2.5 mg Diltiazem HCl (Cardizem -) 60 mg PO Q6HPO [facility] Last Admin: 10/18/17 17:56 Dose: 60 mg Diltiazem HCl (Cardizem Injection -) 10 mg IVPUSH Q4H PRN PRN Reason: TACHYCARDIA Docusate Sodium (Colace -) 100 mg PO BID [facility] Last Admin: 10/18/17 09:40 Dose: 100 mg Ranitidine HCl (Zantac -) 150 mg PO BID [facility] Last Admin: 10/18/17 09:40 Dose: 150 mg per Cardio note : ekg: afib, vr 141 bpm rbbb, septal q. inferior twi. ekg #2: similar, vr 100 bpm. tele: afib, hr's uncontrolled (120's.) echo 10/2017: 1+ lvh, lv sys fn is low normal. grade 2 diastolic dysfunction. rv size/fn. mod lae. mod-sev patsy. mild-mod ar. mod mr. sev tr, mod phtn. chest/abd CTA: no acute aortic pathology. + atherosclerosis. cardiomegaly, small pericardial effusion. refluxed contrast seen in hepatic IVC. Dilated PA (3.5 cm), small bilateral pleural effusions with associated compressive atelectasis vs. infiltrates. 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 thyroid nodule. See emr for further details. 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 # A fib NEW review cardio note now on cardizem -- will titrate as needed started on Eliquis appreciate cardiology # inc WBC source / await c/s emperic tx ID consult # CKD baseline ? Cr improving mild dehydration IVF # HLD will d/c statins # thrombocythemia baseline 600
[2017-10-19] MEDS: dilTIAZem HCL 60 MG TABLET (FP) PO SCH ×2 (00:55→06:30)
[2017-10-19 06:39] LABS: HEMATOCRIT 38.7 % (32.4-45.2); HEMOGLOBIN 12.4 GM/dL (10.7-15.3); MCH 23.7 pg (25.7-33.7); MEAN CELL VOLUME 74.2 fl (80-96); MEAN PLT VOLUME 8.5 fl (7.5-11.1); MONO % 7.6 % (3.8-10.2); NEUT % 73.4 % (42.8-82.8); PLATELET COUNT 883 K/MM3 (134-434); RBC 5.22 M/mm3 (3.60-5.2); RDW 17.5 % (11.6-15.6); WHITE BLOOD COUNT 15.2 K/mm3 (4.0-10.0)
[2017-10-19 07:04] LABS: ANION GAP 8 (8-16); BLOOD UREA NITROGEN 17 mg/dL (7-18); CALCIUM 7.7 mg/dL (8.5-10.1); CHLORIDE 115 mmol/L (98-107); CO2 23 mmol/L (21-32); CREATININE 1.2 mg/dL (0.55-1.02); GLUCOSE,RANDOM 81 mg/dL (74-106); POTASSIUM 4.8 mmol/L (3.5-5.1); SODIUM 146 mmol/L (136-145)
[2017-10-19] MEDS: APIXABAN 2.5 MG TABLET PO SCH ×2 (09:12→21:24)
[2017-10-19] MEDS: DOCUSATE SODIUM 100 MG CAPSULE (FP) PO SCH ×2 (09:12→21:24)
[2017-10-19] MEDS: RANITIDINE HCL 150 MG TABLET (FP) PO SCH ×2 (09:13→21:24)
--- NOTE | 2017-10-19 10:58 | PN ---
Progress Note (short form) - Note Progress Note: s: no cp sob palps dizzy o: Vital Signs Period Temp Pulse Resp BP Sys/Murdock Pulse Ox Last 24 Hr 97.5 F-98.6 F 94-114 18-20 125-154/71-89 95 nad, calm, lying flat jvd flat, neck supple trace bibasilar rales, nl effort irregularly, irregular nl s1, s2 . 2/6 sys murmur at sternal border and apex ND PMI + bs soft nt nd, no hsm ext with no e/c/c aa0x3 no jaundice, diaphoesis Current Medications Generic Name Dose Route Start Last Admin Trade Name Freq PRN Reason Stop Dose Admin Acetaminophen 650 mg 10/17/17 00:10 Tylenol - PO Q6H PRN PAIN LEVEL 1-5 Apixaban 2.5 mg 10/17/17 00:30 10/19/17 09:12 Eliquis - PO 2.5 mg BID ANKIT Administration Diltiazem HCl 10 mg 10/17/17 22:59 Cardizem Injection - IVPUSH Q4H PRN TACHYCARDIA Diltiazem HCl 360 mg 10/19/17 10:00 Cardizem Cd - PO DAILY ANKIT Docusate Sodium 100 mg 10/17/17 10:00 10/19/17 09:12 Colace - PO 100 mg BID ANKIT Administration Ranitidine HCl 150 mg 10/17/17 10:00 10/19/17 09:13 Zantac - PO 150 mg BID ANKIT Administration CBC, BMP 10/19/17 06:15 10/19/17 06:15 ekg: afib, vr 141 bpm rbbb, septal q. inferior twi. ekg #2: similar, vr 100 bpm. tele: afib, hr low 100s mostly echo 10/2017: 1+ lvh, lv sys fn is low normal. grade 2 diastolic dysfunction. rv size/fn. mod lae. mod-sev patsy. mild-mod ar. mod mr. sev tr, mod phtn. chest/abd CTA: no acute aortic pathology. + atherosclerosis. cardiomegaly, small pericardial effusion. refluxed contrast seen in hepatic IVC. Dilated PA (3.5 cm), small bilateral pleural effusions with associated compressive atelectasis vs. infiltrates. 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 thyroid nodule. See emr for further details. 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 New afib - RVR trigger? + volume depletion requiring IVF, infectious eval per pmd. - will change to long acting dilt 360 qd today and monitor tele, possibly ready for dc tomorrow from cardiac pov if hr controlled - echo findings noted. preserved LV fn + diastolic dysfunction with phtn. + mod mr. Patient required IVF on admit, not likely to be in HF. daily weights, i/o - now on eliquis, no need for asa htn - monitor on dilt HL - LDL 29, would stop atorvastatin ISMAEL - improved s/p IVF
--- NOTE | 2017-10-19 10:59 | PN ---
Progress Note (short form) - Note Progress Note: Pt found sitting on edge of bed. Nasal O2 in place. Vital Signs Period Temp Pulse Resp BP Sys/Murdock Pulse Ox Last 24 Hr 97.5 F-98.6 F 94-114 18-20 125-154/71-89 95 HEENT- NL Neck-supple Lungs- CTAB Heart- S1/S2 Abd-Soft, NT Ext- Neg LE edema CBC, BMP 10/19/17 06:15 10/19/17 06:15 Active Medications Acetaminophen (Tylenol -) 650 mg PO Q6H PRN PRN Reason: PAIN LEVEL 1-5 Apixaban (Eliquis -) 2.5 mg PO BID [facility] Last Admin: 10/19/17 09:12 Dose: 2.5 mg Diltiazem HCl (Cardizem Injection -) 10 mg IVPUSH Q4H PRN PRN Reason: TACHYCARDIA Diltiazem HCl (Cardizem Cd -) 360 mg PO DAILY [facility] Last Admin: 10/19/17 12:27 Dose: 360 mg Docusate Sodium (Colace -) 100 mg PO BID [facility] Last Admin: 10/19/17 09:12 Dose: 100 mg Ranitidine HCl (Zantac -) 150 mg PO BID [facility] Last Admin: 10/19/17 09:13 Dose: 150 mg per Cardio note : echo 10/2017: 1+ lvh, lv sys fn is low normal. grade 2 diastolic dysfunction. rv size/fn. mod lae. mod-sev patsy. mild-mod ar. mod mr. sev tr, mod phtn. chest/abd CTA: no acute aortic pathology. + atherosclerosis. cardiomegaly, small pericardial effusion. refluxed contrast seen in hepatic IVC. Dilated PA (3.5 cm), small bilateral pleural effusions with associated compressive atelectasis vs. infiltrates. 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 thyroid nodule. See emr for further details. # A fib with rvr now on cardizem -- will adjust as needed started on Eliquis 2.5 mg BID HR low 100s # inc WBC Culture- neg growth ID consult # CKD Cr improving with IVF mild dehydration # thrombocythemia baseline 600 Continue Hydroxyurea
[2017-10-20 07:30] LABS: BASO % 0.1 % (0-2.0); HEMATOCRIT 38.8 % (32.4-45.2); HEMOGLOBIN 12.3 GM/dL (10.7-15.3); LYMPH % 17.5 % (8-40); MCH 23.7 pg (25.7-33.7); MCHC 31.8 g/dl (32.0-36.0); MEAN CELL VOLUME 74.6 fl (80-96); MEAN PLT VOLUME 8.1 fl (7.5-11.1); MONO % 8.8 % (3.8-10.2); NEUT % 73.6 % (42.8-82.8); PLATELET COUNT 918 K/MM3 (134-434); RBC 5.21 M/mm3 (3.60-5.2); RDW 17.5 % (11.6-15.6)
[2017-10-20 07:53] LABS: ALBUMIN 2.9 g/dl (3.4-5.0); ANION GAP 8 (8-16); BLOOD UREA NITROGEN 16 mg/dL (7-18); CALCIUM 8.6 mg/dL (8.5-10.1); CHLORIDE 112 mmol/L (98-107); CO2 26 mmol/L (21-32); CREATININE 1.2 mg/dL (0.55-1.02); GLUCOSE,RANDOM 80 mg/dL (74-106); MAGNESIUM 2.1 mg/dL (1.8-2.4); POTASSIUM 4.7 mmol/L (3.5-5.1); SGOT/AST 18 U/L (15-37); SGPT/ALT 51 U/L (12-78); SODIUM 146 mmol/L (136-145)
[2017-10-20 07:55] LABS: ALK PHOS 94 U/L (45-117); BILIRUBIN,TOTAL 1.1 mg/dL (0.2-1.0); TOT PROT 5.5 g/dl (6.4-8.2)
[2017-10-20] MEDS: DOCUSATE SODIUM 100 MG CAPSULE (FP) PO SCH ×2 (09:33→22:22)
[2017-10-20] MEDS: APIXABAN 2.5 MG TABLET PO SCH ×2 (09:33→22:22)
[2017-10-20] MEDS: RANITIDINE HCL 150 MG TABLET (FP) PO SCH ×2 (09:33→22:22)
--- NOTE | 2017-10-20 11:42 | PN ---
Progress Note (short form) - Note Progress Note: s: no cp sob palps dizzy o: Vital Signs Period Temp Pulse Resp BP Sys/Murdock Pulse Ox Last 24 Hr 97.8 F-98.6 F 88-116 16-22 123-148/78-96 92-98 nad, calm, lying flat jvd flat, neck supple cta bl nl effort irregularly, irregular nl s1, s2 . 2/6 sys murmur at sternal border and apex ND PMI + bs soft nt nd, no hsm ext with no e/c/c aa0x3 no jaundice, diaphoesis Current Medications Generic Name Dose Route Start Last Admin Trade Name Freq PRN Reason Stop Dose Admin Acetaminophen 650 mg 10/17/17 00:10 Tylenol - PO Q6H PRN PAIN LEVEL 1-5 Apixaban 2.5 mg 10/17/17 00:30 10/20/17 09:33 Eliquis - PO 2.5 mg BID ANKIT Administration Diltiazem HCl 10 mg 10/17/17 22:59 Cardizem Injection - IVPUSH Q4H PRN TACHYCARDIA Diltiazem HCl 360 mg 10/19/17 10:00 10/20/17 09:33 Cardizem Cd - PO 360 mg DAILY ANKIT Administration Docusate Sodium 100 mg 10/17/17 10:00 10/20/17 09:33 Colace - PO 100 mg BID ANKIT Administration Mirtazapine 7.5 mg 10/20/17 22:00 Remeron - PO HS ANKIT Ranitidine HCl 150 mg 10/17/17 10:00 10/20/17 09:33 Zantac - PO 150 mg BID ANKIT Administration CBC, BMP 10/20/17 07:10 10/20/17 07:10 ekg: afib, vr 141 bpm rbbb, septal q. inferior twi. ekg #2: similar, vr 100 bpm. tele: afib, hr 90s echo 10/2017: 1+ lvh, lv sys fn is low normal. grade 2 diastolic dysfunction. rv size/fn. mod lae. mod-sev patsy. mild-mod ar. mod mr. sev tr, mod phtn. chest/abd CTA: no acute aortic pathology. + atherosclerosis. cardiomegaly, small pericardial effusion. refluxed contrast seen in hepatic IVC. Dilated PA (3.5 cm), small bilateral pleural effusions with associated compressive atelectasis vs. infiltrates. 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 thyroid nodule. See emr for further details. 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 New afib - RVR trigger? + volume depletion requiring IVF, infectious eval per pmd. -cont dilt 360 qd, hr improved - echo findings noted. preserved LV fn + diastolic dysfunction with phtn. + mod mr. Patient required IVF on admit, not likely to be in HF. daily weights, i/o - now on eliquis, no need for asa htn - monitor on dilt HL - LDL 29, would stop atorvastatin ISMAEL - improved s/p IVF ok for dc with cardio f/u 2 weeks
--- NOTE | 2017-10-20 11:49 | PN ---
Progress Note (short form) - Note Progress Note: comfortable / afebrile sitting in bed not in distress / no c/oCP/palpitation/dyspnea called daughter Jillian case discussed arrangements for help at home in place -VNS discussed need with discharge Vital Signs Period Temp Pulse Resp BP Sys/Murdock Pulse Ox Last 24 Hr 97.8 F-98.6 F 88-116 16-22 123-148/78-96 92-98 neck supple no JVD hear S1/S2 irregularly irreg -(Monitor hr 80's) lungs clear bilat abd soft non tender ext no edema CBC, BMP 10/20/17 07:10 10/20/17 07:10 Microbiology 10/17/17 00:10 Blood - Peripheral Venous Blood Culture - Preliminary NO GROWTH OBTAINED AFTER 72 HOURS, INCUBATION TO CONTINUE FOR 2 DAYS. 10/16/17 00:00 Blood - Peripheral Venous Blood Culture - Preliminary NO GROWTH OBTAINED AFTER 72 HOURS, INCUBATION TO CONTINUE FOR 2 DAYS. Active Medications Acetaminophen (Tylenol -) 650 mg PO Q6H PRN PRN Reason: PAIN LEVEL 1-5 Apixaban (Eliquis -) 2.5 mg PO BID REPLACED BY [facility] Last Admin: 10/20/17 09:33 Dose: 2.5 mg Diltiazem HCl (Cardizem Injection -) 10 mg IVPUSH Q4H PRN PRN Reason: TACHYCARDIA Diltiazem HCl (Cardizem Cd -) 360 mg PO DAILY REPLACED BY [facility] Last Admin: 10/20/17 09:33 Dose: 360 mg Docusate Sodium (Colace -) 100 mg PO BID REPLACED BY [facility] Last Admin: 10/20/17 09:33 Dose: 100 mg Mirtazapine (Remeron -) 7.5 mg PO HS REPLACED BY [facility] Ranitidine HCl (Zantac -) 150 mg PO BID REPLACED BY [facility] Last Admin: 10/20/17 09:33 Dose: 150 mg per Cardio note : ekg: afib, vr 141 bpm rbbb, septal q. inferior twi. ekg #2: similar, vr 100 bpm. tele: afib, hr's uncontrolled (120's.) echo 10/2017: 1+ lvh, lv sys fn is low normal. grade 2 diastolic dysfunction. rv size/fn. mod lae. mod-sev patsy. mild-mod ar. mod mr. sev tr, mod phtn. chest/abd CTA: no acute aortic pathology. + atherosclerosis. cardiomegaly, small pericardial effusion. refluxed contrast seen in hepatic IVC. Dilated PA (3.5 cm), small bilateral pleural effusions with associated compressive atelectasis vs. infiltrates. 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 thyroid nodule. See emr for further details. 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 # A fib NEW review cardio note now on cardizem 360 on Eliquis will follow up with cardio as out patient # ISMAEL on CKD at baseline # HLD will d/c statins # thrombocythemia baseline 600 will follow as out patient
[2017-10-20] MEDS: MIRTAZAPINE 15 MG TABLET (FP) PO SCH (22:22)
[2017-10-21] MEDS: ACETAMINOPHEN 325 MG TABLET (FP) PO PRN (01:15)
[2017-10-21] MEDS ORDERED: LORazepam 0.5 MG TABLET PO ONE (08:00)
[2017-10-21] MEDS: APIXABAN 2.5 MG TABLET PO SCH ×2 (10:22→21:18)
[2017-10-21] MEDS: RANITIDINE HCL 150 MG TABLET (FP) PO SCH ×2 (10:22→21:18)
[2017-10-21] MEDS: DOCUSATE SODIUM 100 MG CAPSULE (FP) PO SCH ×2 (10:22→21:18)
[2017-10-21] MEDS: metoPROLOL SUCCINATE 25 MG TAB.SR.24H (FP) PO SCH (10:22)
--- NOTE | 2017-10-21 11:30 | PN ---
Progress Note (short form) - Note Progress Note: s: no cp sob palps dizzy; fatigued o: Vital Signs Period Temp Pulse Resp BP Sys/Murdock Pulse Ox Last 24 Hr 97.8 F-98.8 F 106-128 18-22 138-175/82-105 95 nad, calm, lying flat jvd flat, neck supple cta bl nl effort irregularly, irregular nl s1, s2 . 2/6 sys murmur at sternal border and apex ND PMI + bs soft nt nd, no hsm ext with no e/c/c aa0x3 no jaundice, diaphoesis Current Medications Generic Name Dose Route Start Last Admin Trade Name Freq PRN Reason Stop Dose Admin Acetaminophen 650 mg 10/17/17 00:10 10/21/17 01:15 Tylenol - PO 650 mg Q6H PRN Administration PAIN LEVEL 1-5 Apixaban 2.5 mg 10/17/17 00:30 10/21/17 10:22 Eliquis - PO 2.5 mg BID ANKIT Administration Diltiazem HCl 10 mg 10/17/17 22:59 10/21/17 06:13 Cardizem Injection - IVPUSH 10 mg Q4H PRN Administration TACHYCARDIA Diltiazem HCl 360 mg 10/19/17 10:00 10/21/17 10:22 Cardizem Cd - PO 360 mg DAILY ANKIT Administration Docusate Sodium 100 mg 10/17/17 10:00 10/21/17 10:22 Colace - PO 100 mg BID ANKIT Administration Metoprolol Succinate 25 mg 10/21/17 10:00 10/21/17 10:22 Toprol Xl - PO 25 mg DAILY ANKIT Administration Mirtazapine 7.5 mg 10/20/17 22:00 10/20/17 22:22 Remeron - PO 7.5 mg HS ANKIT Administration Ranitidine HCl 150 mg 10/17/17 10:00 10/21/17 10:22 Zantac - PO 150 mg BID ANKIT Administration CBC, BMP 10/20/17 07:10 10/20/17 07:10 ekg: afib, vr 141 bpm rbbb, septal q. inferior twi. ekg #2: similar, vr 100 bpm. tele: afib, hr low 100s echo 10/2017: 1+ lvh, lv sys fn is low normal. grade 2 diastolic dysfunction. rv size/fn. mod lae. mod-sev patsy. mild-mod ar. mod mr. sev tr, mod phtn. chest/abd CTA: no acute aortic pathology. + atherosclerosis. cardiomegaly, small pericardial effusion. refluxed contrast seen in hepatic IVC. Dilated PA (3.5 cm), small bilateral pleural effusions with associated compressive atelectasis vs. infiltrates. 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 thyroid nodule. See emr for further details. 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 New afib -cont dilt 360 qd, hr improved but still mildly fast at times. will add toprol 25 qd as well, monitor on tele - echo findings noted. preserved LV fn + diastolic dysfunction with phtn. + mod mr. Patient required IVF on admit, not likely to be in HF. daily weights, i/o - now on eliquis, no need for asa htn - stable HL - LDL 29, would stop atorvastatin ISMAEL - improved s/p IVF
--- NOTE | 2017-10-21 14:04 | PN ---
Progress Note (short form) - Note Progress Note: Called this am 6;30 patient with rapid AFib and symptomatic HR 120-130 and very anxious as per staff ttx with addition of BB to regime and given ativan .5 mg currently very calm and feeling "very well" - wants to go home will continue to monitor for HR control - she agrees and understands events from am discussed with patient Now comfortable / afebrile Vital Signs Period Temp Pulse Resp BP Sys/Murdock Pulse Ox Last 24 Hr 97.8 F-98.8 F 111-128 18-22 138-175/86-105 92-95 neck supple no JVD hear S1/S2 irregularly irreg -100's lungs clear bilat abd soft non tender ext no edema CBC, BMP 10/20/17 07:10 10/20/17 07:10 Microbiology 10/17/17 00:10 Blood - Peripheral Venous Blood Culture - Preliminary NO GROWTH OBTAINED AFTER 96 HOURS, INCUBATION TO CONTINUE FOR 1 DAYS. 10/16/17 00:00 Blood - Peripheral Venous Blood Culture - Preliminary NO GROWTH OBTAINED AFTER 96 HOURS, INCUBATION TO CONTINUE FOR 1 DAYS. Active Medications Acetaminophen (Tylenol -) 650 mg PO Q6H PRN PRN Reason: PAIN LEVEL 1-5 Last Admin: 10/21/17 01:15 Dose: 650 mg Apixaban (Eliquis -) 2.5 mg PO BID [facility] Last Admin: 10/21/17 10:22 Dose: 2.5 mg Diltiazem HCl (Cardizem Injection -) 10 mg IVPUSH Q4H PRN PRN Reason: TACHYCARDIA Last Admin: 10/21/17 06:13 Dose: 10 mg Diltiazem HCl (Cardizem Cd -) 360 mg PO DAILY [facility] Last Admin: 10/21/17 10:22 Dose: 360 mg Docusate Sodium (Colace -) 100 mg PO BID [facility] Last Admin: 10/21/17 10:22 Dose: 100 mg Lorazepam (Ativan -) 0.5 mg PO BID PRN PRN Reason: ANXIETY Metoprolol Succinate (Toprol Xl -) 25 mg PO DAILY [facility] Last Admin: 10/21/17 10:22 Dose: 25 mg Mirtazapine (Remeron -) 7.5 mg PO HS [facility] Last Admin: 10/20/17 22:22 Dose: 7.5 mg Ranitidine HCl (Zantac -) 150 mg PO BID ANKIT Last Admin: 10/21/17 10:22 Dose: 150 mg min: 10/20/17 09:33 Dose: 150 mg per Cardio note : ekg: afib, vr 141 bpm rbbb, septal q. inferior twi. ekg #2: similar, vr 100 bpm. tele: afib, hr's uncontrolled (120's.) echo 10/2017: 1+ lvh, lv sys fn is low normal. grade 2 diastolic dysfunction. rv size/fn. mod lae. mod-sev patsy. mild-mod ar. mod mr. sev tr, mod phtn. chest/abd CTA: no acute aortic pathology. + atherosclerosis. cardiomegaly, small pericardial effusion. refluxed contrast seen in hepatic IVC. Dilated PA (3.5 cm), small bilateral pleural effusions with associated compressive atelectasis vs. infiltrates. 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 thyroid nodule. See emr for further details. assmt # A fib with RVR in spite of Cardizem 360 symptomatic review of telemetry cardio note appreciated started on toprol 25 continue to monitor on Eliquis # ISMAEL on CKD at baseline # HLD will d/c statins # thrombocythemia baseline 600 will follow as out patient # depression / anxiety discussed with daughter who provides hx long standing sx of depression and axiety never treated with medical management now overwhelming to patient in ADL continue remeron add ativan 0.5 bid PRN
[2017-10-21] MEDS: LORazepam 0.5 MG TABLET PO PRN (21:18)
[2017-10-21] MEDS: MIRTAZAPINE 15 MG TABLET (FP) PO SCH (21:18)
[2017-10-22 07:57] LABS: ANION GAP 8 (8-16); BLOOD UREA NITROGEN 15 mg/dL (7-18); CALCIUM 8.5 mg/dL (8.5-10.1); CHLORIDE 112 mmol/L (98-107); CO2 26 mmol/L (21-32); CREATININE 1.3 mg/dL (0.55-1.02); GLUCOSE,RANDOM 77 mg/dL (74-106); MAGNESIUM 2.1 mg/dL (1.8-2.4); POTASSIUM 4.5 mmol/L (3.5-5.1); SODIUM 146 mmol/L (136-145)
[2017-10-22] MEDS: DOCUSATE SODIUM 100 MG CAPSULE (FP) PO SCH ×2 (09:18→21:25)
[2017-10-22] MEDS: APIXABAN 2.5 MG TABLET PO SCH ×2 (09:18→21:25)
[2017-10-22] MEDS: metoPROLOL SUCCINATE 25 MG TAB.SR.24H (FP) PO SCH ×2 (09:18→21:25)
[2017-10-22] MEDS: RANITIDINE HCL 150 MG TABLET (FP) PO SCH ×2 (09:18→21:25)
[2017-10-22] MEDS ORDERED: metoPROLOL SUCCINATE 25 MG TAB.SR.24H (FP) PO SCH (09:24)
[2017-10-22 09:32] LABS: BASO % 0.2 % (0-2.0); HEMATOCRIT 42.6 % (32.4-45.2); HEMOGLOBIN 13.1 GM/dL (10.7-15.3); LYMPH % 21.4 % (8-40); MCH 22.9 pg (25.7-33.7); MCHC 30.6 g/dl (32.0-36.0); MEAN CELL VOLUME 74.9 fl (80-96); MEAN PLT VOLUME 7.6 fl (7.5-11.1); MONO % 8.7 % (3.8-10.2); NEUT % 69.7 % (42.8-82.8); PLATELET COUNT 886 K/MM3 (134-434); RBC 5.69 M/mm3 (3.60-5.2); RDW 17.8 % (11.6-15.6); WHITE BLOOD COUNT 15.7 K/mm3 (4.0-10.0)
[2017-10-22] MEDS ORDERED: metoPROLOL SUCCINATE 25 MG TAB.SR.24H (FP) PO ONE (09:45)
--- NOTE | 2017-10-22 10:50 | PN ---
Progress Note (short form) - Note Progress Note: s: no cp sob palps dizzy o: Vital Signs Period Temp Pulse Resp BP Sys/Murdock Pulse Ox Last 24 Hr 97.5 F-98.4 F 104-126 16-20 124-151/66-100 97-97 nad, calm, lying flat jvd flat, neck supple cta bl nl effort irregularly, irregular nl s1, s2 . 2/6 sys murmur at sternal border and apex ND PMI + bs soft nt nd, no hsm ext with no e/c/c aa0x3 no jaundice, diaphoesis Current Medications Generic Name Dose Route Start Last Admin Trade Name Freq PRN Reason Stop Dose Admin Acetaminophen 650 mg 10/17/17 00:10 10/21/17 01:15 Tylenol - PO 650 mg Q6H PRN Administration PAIN LEVEL 1-5 Apixaban 2.5 mg 10/17/17 00:30 10/22/17 09:18 Eliquis - PO 2.5 mg BID ANKIT Administration Diltiazem HCl 10 mg 10/17/17 22:59 10/21/17 06:13 Cardizem Injection - IVPUSH 10 mg Q4H PRN Administration TACHYCARDIA Diltiazem HCl 360 mg 10/19/17 10:00 10/22/17 09:18 Cardizem Cd - PO 360 mg DAILY ANKIT Administration Docusate Sodium 100 mg 10/17/17 10:00 10/22/17 09:18 Colace - PO 100 mg BID ANKIT Administration Lorazepam 0.5 mg 10/21/17 13:59 10/21/17 21:18 Ativan - PO 0.5 mg BID PRN Administration ANXIETY Metoprolol Succinate 50 mg 10/22/17 22:00 Toprol Xl - PO BID ANKIT Mirtazapine 7.5 mg 10/20/17 22:00 10/21/17 21:18 Remeron - PO 7.5 mg HS ANKIT Administration Ranitidine HCl 150 mg 10/17/17 10:00 10/22/17 09:18 Zantac - PO 150 mg BID ANKIT Administration CBC, BMP 10/22/17 07:04 10/22/17 07:04 ekg: afib, vr 141 bpm rbbb, septal q. inferior twi. ekg #2: similar, vr 100 bpm. tele: afib, hr low 100s echo 10/2017: 1+ lvh, lv sys fn is low normal. grade 2 diastolic dysfunction. rv size/fn. mod lae. mod-sev patsy. mild-mod ar. mod mr. sev tr, mod phtn. chest/abd CTA: no acute aortic pathology. + atherosclerosis. cardiomegaly, small pericardial effusion. refluxed contrast seen in hepatic IVC. Dilated PA (3.5 cm), small bilateral pleural effusions with associated compressive atelectasis vs. infiltrates. 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 thyroid nodule. See emr for further details. 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 New afib -cont dilt 360 qd, hr improved but still mildly fast at times so have been adding/titrating toprol. Will increase to 50 bid today. Monitor on tele. - echo findings noted. preserved LV fn + diastolic dysfunction with phtn. + mod mr. Patient required IVF on admit, not likely to be in HF. daily weights, i/o - now on eliquis, no need for asa htn - stable HL - stable off meds ISMAEL - improved s/p IVF
--- NOTE | 2017-10-22 11:11 | EKG ---
Test Reason : Blood Pressure : / mmHG Vent. Rate : 107 BPM Atrial Rate : 078 BPM P-R Int : 000 ms QRS Dur : 122 ms QT Int : 382 ms P-R-T Axes : 000 075 -88 degrees QTc Int : 509 ms ATRIAL FIBRILLATION WITH RAPID VENTRICULAR RESPONSE RIGHT BUNDLE BRANCH BLOCK ABNORMAL ECG WHEN COMPARED WITH ECG OF 16-OCT-2017 19:28, NO SIGNIFICANT CHANGE WAS FOUND Confirmed by REMY JENSEN MD ([id number]) on 10/22/2017 11:10:49 AM Referred By: Confirmed By:REMY JENSEN MD
--- NOTE | 2017-10-22 13:33 | PN ---
Progress Note (short form) - Note Progress Note: continues with episodes of symptomatic rapid rates will need to increase BB Vital Signs Period Temp Pulse Resp BP Sys/Murdock Pulse Ox Last 24 Hr 97.8 F-98.8 F 111-128 18-22 138-175/86-105 92-95 Vital Signs Period Temp Pulse Resp BP Sys/Murdock Pulse Ox Last 24 Hr 97.5 F-98.4 F 104-126 16-20 124-151/66-100 97-97 neck supple no JVD hear S1/S2 irregularly irreg -100's lungs clear bilat abd soft non tender ext no edema CBC, BMP 10/22/17 07:04 10/22/17 07:04 Microbiology 10/17/17 00:10 Blood - Peripheral Venous Blood Culture - Final NO GROWTH AFTER 5 DAYS INCUBATION 10/16/17 00:00 Blood - Peripheral Venous Blood Culture - Final NO GROWTH AFTER 5 DAYS INCUBATION Active Medications Acetaminophen (Tylenol -) 650 mg PO Q6H PRN PRN Reason: PAIN LEVEL 1-5 Last Admin: 10/21/17 01:15 Dose: 650 mg Apixaban (Eliquis -) 2.5 mg PO BID [facility] Last Admin: 10/22/17 09:18 Dose: 2.5 mg Diltiazem HCl (Cardizem Injection -) 10 mg IVPUSH Q4H PRN PRN Reason: TACHYCARDIA Last Admin: 10/21/17 06:13 Dose: 10 mg Diltiazem HCl (Cardizem Cd -) 360 mg PO DAILY [facility] Last Admin: 10/22/17 09:18 Dose: 360 mg Docusate Sodium (Colace -) 100 mg PO BID [facility] Last Admin: 10/22/17 09:18 Dose: 100 mg Lorazepam (Ativan -) 0.5 mg PO BID PRN PRN Reason: ANXIETY Last Admin: 10/21/17 21:18 Dose: 0.5 mg Metoprolol Succinate (Toprol Xl -) 50 mg PO BID [facility] Mirtazapine (Remeron -) 7.5 mg PO HS [facility] Last Admin: 10/21/17 21:18 Dose: 7.5 mg Ranitidine HCl (Zantac -) 150 mg PO BID [facility] Last Admin: 10/22/17 09:18 Dose: 150 mg Active Medications Acetaminophen (Tylenol -) 650 mg PO Q6H PRN PRN Reason: PAIN LEVEL 1-5 Last Admin: 10/21/17 01:15 Dose: 650 mg Apixaban (Eliquis -) 2.5 mg PO BID [facility] Last Admin: 10/21/17 10:22 Dose: 2.5 mg Diltiazem HCl (Cardizem Injection -) 10 mg IVPUSH Q4H PRN PRN Reason: TACHYCARDIA Last Admin: 10/21/17 06:13 Dose: 10 mg Diltiazem HCl (Cardizem Cd -) 360 mg PO DAILY [facility] Last Admin: 10/21/17 10:22 Dose: 360 mg Docusate Sodium (Colace -) 100 mg PO BID [facility] Last Admin: 10/21/17 10:22 Dose: 100 mg Lorazepam (Ativan -) 0.5 mg PO BID PRN PRN Reason: ANXIETY Metoprolol Succinate (Toprol Xl -) 25 mg PO DAILY [facility] Last Admin: 10/21/17 10:22 Dose: 25 mg Mirtazapine (Remeron -) 7.5 mg PO HS [facility] Last Admin: 10/20/17 22:22 Dose: 7.5 mg Ranitidine HCl (Zantac -) 150 mg PO BID [facility] Last Admin: 10/21/17 10:22 Dose: 150 mg min: 10/20/17 09:33 Dose: 150 mg assmt # A fib with RVR Cardizem 360 and toprol 25 symptomatic RVR increase BB review of telemetry cardio note appreciated continue to monitor on Eliquis # ISMAEL on CKD at baseline # HLD will d/c statins # thrombocythemia baseline 600 will follow as out patient # depression / anxiety discussed with daughter who provides hx long standing sx of depression and axiety never treated with medical management now overwhelming to patient in ADL continue remeron add ativan 0.5 bid PRN
[2017-10-22] MEDS: MIRTAZAPINE 15 MG TABLET (FP) PO SCH (21:24)
[2017-10-22] MEDS: LORazepam 0.5 MG TABLET PO PRN (21:25)
[2017-10-23] MEDS: ACETAMINOPHEN 325 MG TABLET (FP) PO PRN (00:53)
[2017-10-23 07:08] LABS: BASO % 0.1 % (0-2.0); HEMATOCRIT 40.6 % (32.4-45.2); HEMOGLOBIN 12.8 GM/dL (10.7-15.3); LYMPH % 21.3 % (8-40); MCH 23.3 pg (25.7-33.7); MCHC 31.5 g/dl (32.0-36.0); MEAN CELL VOLUME 74.1 fl (80-96); MONO % 9.3 % (3.8-10.2); NEUT % 69.3 % (42.8-82.8); PLATELET COUNT 930 K/MM3 (134-434); RBC 5.48 M/mm3 (3.60-5.2); RDW 17.2 % (11.6-15.6); WHITE BLOOD COUNT 15.7 K/mm3 (4.0-10.0)
[2017-10-23 07:32] LABS: ANION GAP 8 (8-16); BLOOD UREA NITROGEN 17 mg/dL (7-18); CALCIUM 8.3 mg/dL (8.5-10.1); CHLORIDE 111 mmol/L (98-107); CO2 27 mmol/L (21-32); GLUCOSE,RANDOM 76 mg/dL (74-106); MAGNESIUM 1.9 mg/dL (1.8-2.4); POTASSIUM 4.5 mmol/L (3.5-5.1); SODIUM 146 mmol/L (136-145)
[2017-10-23 07:33] LABS: CREATININE 1.3 mg/dL (0.55-1.02)
[2017-10-23] MEDS: metoPROLOL SUCCINATE 25 MG TAB.SR.24H (FP) PO SCH ×2 (09:41→22:03)
[2017-10-23] MEDS: DOCUSATE SODIUM 100 MG CAPSULE (FP) PO SCH ×2 (09:42→22:03)
[2017-10-23] MEDS: RANITIDINE HCL 150 MG TABLET (FP) PO SCH ×2 (09:42→22:03)
[2017-10-23] MEDS: APIXABAN 2.5 MG TABLET PO SCH ×2 (09:42→22:03)
[2017-10-23] MEDS ORDERED: metoPROLOL SUCCINATE 25 MG TAB.SR.24H (FP) PO SCH (10:00)
--- NOTE | 2017-10-23 10:52 | PN ---
Progress Note (short form) - Note Progress Note: s: no cp sob palps dizzy o: Vital Signs Period Temp Pulse Resp BP Sys/Murdock Pulse Ox Last 24 Hr 97.5 F-98.9 F 84-113 18-20 134-147/77-89 99 nad, calm, lying flat jvd flat, neck supple cta bl nl effort irregularly, irregular nl s1, s2 . 2/6 sys murmur at sternal border and apex ND PMI + bs soft nt nd, no hsm ext with no e/c/c aa0x3 no jaundice, diaphoesis Current Medications Generic Name Dose Route Start Last Admin Trade Name Freq PRN Reason Stop Dose Admin Acetaminophen 650 mg 10/17/17 00:10 10/23/17 00:53 Tylenol - PO 650 mg Q6H PRN Administration PAIN LEVEL 1-5 Apixaban 2.5 mg 10/17/17 00:30 10/23/17 09:42 Eliquis - PO 2.5 mg BID ANKIT Administration Diltiazem HCl 10 mg 10/17/17 22:59 10/21/17 06:13 Cardizem Injection - IVPUSH 10 mg Q4H PRN Administration TACHYCARDIA Diltiazem HCl 360 mg 10/19/17 10:00 10/23/17 09:41 Cardizem Cd - PO 360 mg DAILY ANKIT Administration Docusate Sodium 100 mg 10/17/17 10:00 10/23/17 09:42 Colace - PO 100 mg BID ANKIT Administration Lorazepam 0.5 mg 10/21/17 13:59 10/22/17 21:25 Ativan - PO 0.5 mg BID PRN Administration ANXIETY Metoprolol Succinate 50 mg 10/22/17 22:00 10/23/17 09:41 Toprol Xl - PO 50 mg BID ANKIT Administration Mirtazapine 7.5 mg 10/20/17 22:00 10/22/17 21:24 Remeron - PO 7.5 mg HS ANKIT Administration Ranitidine HCl 150 mg 10/17/17 10:00 10/23/17 09:42 Zantac - PO 150 mg BID ANKIT Administration CBC, BMP 10/23/17 06:35 10/23/17 06:35 ekg: afib, vr 141 bpm rbbb, septal q. inferior twi. ekg #2: similar, vr 100 bpm. tele: afib, hr 90s echo 10/2017: 1+ lvh, lv sys fn is low normal. grade 2 diastolic dysfunction. rv size/fn. mod lae. mod-sev patsy. mild-mod ar. mod mr. sev tr, mod phtn. chest/abd CTA: no acute aortic pathology. + atherosclerosis. cardiomegaly, small pericardial effusion. refluxed contrast seen in hepatic IVC. Dilated PA (3.5 cm), small bilateral pleural effusions with associated compressive atelectasis vs. infiltrates. 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 thyroid nodule. See emr for further details. 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 New afib - cont dilt 360 qd, toprol 50 bid - echo findings noted. preserved LV fn + diastolic dysfunction with phtn. + mod mr. Patient required IVF on admit, not likely to be in HF. daily weights, i/o - now on eliquis, no need for asa htn - stable HL - stable off meds ISMAEL - improved s/p IVF cardiac quintero stable
--- NOTE | 2017-10-23 11:32 | PN ---
Progress Note (short form) - Note Progress Note: today feeling beeter HR in the low 100's asymptomatic Vital Signs Period Temp Pulse Resp BP Sys/Murdock Pulse Ox Last 24 Hr 97.5 F-98.9 F 84-113 18-20 134-147/77-89 99 neck supple no JVD hear S1/S2 irregularly irreg -100's lungs clear bilat abd soft non tender ext no edema CBC, BMP 10/23/17 06:35 10/23/17 06:35 Microbiology 10/17/17 00:10 Blood - Peripheral Venous Blood Culture - Final NO GROWTH AFTER 5 DAYS INCUBATION 10/16/17 00:00 Blood - Peripheral Venous Blood Culture - Final NO GROWTH AFTER 5 DAYS INCUBATION Active Medications Acetaminophen (Tylenol -) 650 mg PO Q6H PRN PRN Reason: PAIN LEVEL 1-5 Last Admin: 10/23/17 00:53 Dose: 650 mg Apixaban (Eliquis -) 2.5 mg PO BID [facility] Last Admin: 10/23/17 09:42 Dose: 2.5 mg Diltiazem HCl (Cardizem Injection -) 10 mg IVPUSH Q4H PRN PRN Reason: TACHYCARDIA Last Admin: 10/21/17 06:13 Dose: 10 mg Diltiazem HCl (Cardizem Cd -) 360 mg PO DAILY [facility] Last Admin: 10/23/17 09:41 Dose: 360 mg Docusate Sodium (Colace -) 100 mg PO BID [facility] Last Admin: 10/23/17 09:42 Dose: 100 mg Lorazepam (Ativan -) 0.5 mg PO BID PRN PRN Reason: ANXIETY Last Admin: 10/22/17 21:25 Dose: 0.5 mg Metoprolol Succinate (Toprol Xl -) 50 mg PO BID [facility] Last Admin: 10/23/17 09:41 Dose: 50 mg Mirtazapine (Remeron -) 7.5 mg PO HS [facility] Last Admin: 10/22/17 21:24 Dose: 7.5 mg Ranitidine HCl (Zantac -) 150 mg PO BID [facility] Last Admin: 10/23/17 09:42 Dose: 150 mg assmt # A fib with RVR Cardizem 360 and increased toprol to 50 bid symptomatic RVR increased BB review of telemetry cardio note appreciated continue to monitor on Eliquis # ISMAEL on CKD at baseline # HLD off # thrombocythemia baseline 600 will follow as out patient # depression / anxiety discussed with daughter who provides hx long standing sx of depression and axiety never treated with medical management now overwhelming to patient in ADL continue remeron add ativan 0.5 bid PRN
[2017-10-23] MEDS: MIRTAZAPINE 15 MG TABLET (FP) PO SCH (22:03)
[2017-10-24] MEDS: APIXABAN 2.5 MG TABLET PO SCH ×2 (09:38→21:19)
[2017-10-24] MEDS: metoPROLOL SUCCINATE 25 MG TAB.SR.24H (FP) PO SCH (09:39)
[2017-10-24] MEDS: RANITIDINE HCL 150 MG TABLET (FP) PO SCH ×2 (09:39→21:19)
[2017-10-24] MEDS: DOCUSATE SODIUM 100 MG CAPSULE (FP) PO SCH ×2 (09:39→21:18)
--- NOTE | 2017-10-24 11:33 | PN ---
Progress Note (short form) - Note Progress Note: CC: new afib s: no cp sob palps dizzy. o: Current Medications Acetaminophen (Tylenol -) 650 mg PO Q6H PRN PRN Reason: PAIN LEVEL 1-5 Last Admin: 10/23/17 00:53 Dose: 650 mg Apixaban (Eliquis -) 2.5 mg PO BID [facility] Last Admin: 10/24/17 09:38 Dose: 2.5 mg Diltiazem HCl (Cardizem Injection -) 10 mg IVPUSH Q4H PRN PRN Reason: TACHYCARDIA Last Admin: 10/21/17 06:13 Dose: 10 mg Diltiazem HCl (Cardizem Cd -) 360 mg PO DAILY [facility] Last Admin: 10/24/17 09:38 Dose: 360 mg Docusate Sodium (Colace -) 100 mg PO BID [facility] Last Admin: 10/24/17 09:39 Dose: 100 mg Lorazepam (Ativan -) 0.5 mg PO BID PRN PRN Reason: ANXIETY Last Admin: 10/22/17 21:25 Dose: 0.5 mg Metoprolol Succinate (Toprol Xl -) 50 mg PO BID [facility] Last Admin: 10/24/17 09:39 Dose: 50 mg Mirtazapine (Remeron -) 7.5 mg PO HS [facility] Last Admin: 10/23/17 22:03 Dose: 7.5 mg Ranitidine HCl (Zantac -) 150 mg PO BID [facility] Last Admin: 10/24/17 09:39 Dose: 150 mg Vital Signs - 24 hr 10/23/17 10/23/17 10/23/17 14:00 18:00 21:00 Temperature 98.6 F 97.5 F L Pulse Rate 110 H 111 H Respiratory 20 19 Rate Blood Pressure 135/83 133/78 O2 Sat by Pulse 98 Oximetry (%) 10/23/17 10/24/17 10/24/17 22:00 02:00 08:00 Temperature 97.7 F 98 F Pulse Rate 106 H 104 H Respiratory 18 20 18 Rate Blood Pressure 146/88 143/81 O2 Sat by Pulse 96 Oximetry (%) 10/24/17 08:01 Temperature 98 F Pulse Rate 115 H Respiratory 18 Rate Blood Pressure 138/69 O2 Sat by Pulse Oximetry (%) Intake & Output 02/1810/23/17 10/24/17 10/25/17 07:59 07:59 07:59 07:59 Intake Total 820 930 180 Balance 820 930 180 nad, calm, lying flat jvd flat, neck supple cta bl nl effort irregularly, irregular nl s1, s2 . 2/6 sys murmur at sternal border and apex ND PMI + bs soft nt nd, no hsm ext with no e/c/c aa0x3 no jaundice, diaphoesis no CBC, BMP today 10/23/17 06:35 10/23/17 06:35 Laboratory Tests 10/18/17 10/23/17 06:25 06:35 Magnesium 1.9 TSH 3.00 ekg: afib, vr 141 bpm rbbb, septal q. inferior twi. ekg #2: similar, vr 100 bpm. tele: aflutter with variable conduction, hr 110's and trending up to 130's this am. echo 10/2017: 1+ lvh, lv sys fn is low normal. grade 2 diastolic dysfunction. rv size/fn. mod lae. mod-sev patsy. mild-mod ar. mod mr. sev tr, mod phtn. chest/abd CTA: no acute aortic pathology. + atherosclerosis. cardiomegaly, small pericardial effusion. refluxed contrast seen in hepatic IVC. Dilated PA (3.5 cm), small bilateral pleural effusions with associated compressive atelectasis vs. infiltrates. 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 thyroid nodule. See emr for further details. 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 New afib - cont dilt 360 qd, uptitrating toprol as mentioned. tsh wnl - echo findings noted. preserved LV fn + diastolic dysfunction with phtn. + mod mr. Patient required IVF on admit, not likely to be in HF. daily weights, i/o - now on eliquis, no need for asa - 10/24: persistent HR 100's-110's and now trending up into the 130's this morning. Patient remains asx. Will give lopressor 50 mg x 1 and uptitrate toprol to 75 mg bid. Volume status somewhat unclear at this time. weight today is increased per patient. small bilateral effusions on cta s/p IVF on admit. But no obvious signs of volume overload on exam. Will give trial of lasix 20 mg IV x 1 in case mild chf contributing to persistently elevated heart rates. Orthostatic vitals checked for confirmation that patient is not volume depleted. Reevaluate bmp tomorrow am. patient likely will not require standing diuretics once she is rate controlled. htn - stable HL - stable off meds ISMAEL - improved s/p IVF - now with mild hypernatremia, giving trial of low dose iv lasix 2/20.
[2017-10-24] MEDS ORDERED: METOPROLOL TARTRATE 50 MG TABLET (FP) PO ONE (12:46)
[2017-10-24] MEDS ORDERED: FUROSEMIDE 40 MG/4 ML INJECTABLE VIAL IVPUSH ONE (15:37)
[2017-10-24] MEDS: MIRTAZAPINE 15 MG TABLET (FP) PO SCH (21:21)
[2017-10-24] MEDS ORDERED: metoPROLOL SUCCINATE 25 MG TAB.SR.24H (FP) PO SCH (22:00)
--- NOTE | 2017-10-24 22:24 | PN ---
Progress Note (short form) - Note Progress Note: today feeling beeter HR in the low 100's still up to 120's asymptomatic Vital Signs Period Temp Pulse Resp BP Sys/Murdock Pulse Ox Last 24 Hr 97.7 F-98.2 F 83-123 18-20 130-149/69-99 96 neck supple no JVD hear S1/S2 irregularly irreg -100's lungs clear bilat abd soft non tender ext no edema CBC, BMP 10/23/17 06:35 10/23/17 06:35 Microbiology 10/17/17 00:10 Blood - Peripheral Venous Blood Culture - Final NO GROWTH AFTER 5 DAYS INCUBATION 10/16/17 00:00 Blood - Peripheral Venous Blood Culture - Final NO GROWTH AFTER 5 DAYS INCUBATION Active Medications Acetaminophen (Tylenol -) 650 mg PO Q6H PRN PRN Reason: PAIN LEVEL 1-5 Last Admin: 10/23/17 00:53 Dose: 650 mg Apixaban (Eliquis -) 2.5 mg PO BID [facility] Last Admin: 10/24/17 21:19 Dose: 2.5 mg Diltiazem HCl (Cardizem Injection -) 10 mg IVPUSH Q4H PRN PRN Reason: TACHYCARDIA Last Admin: 10/21/17 06:13 Dose: 10 mg Diltiazem HCl (Cardizem Cd -) 360 mg PO DAILY [facility] Last Admin: 10/24/17 09:38 Dose: 360 mg Docusate Sodium (Colace -) 100 mg PO BID [facility] Last Admin: 10/24/17 21:18 Dose: 100 mg Metoprolol Succinate (Toprol Xl -) 75 mg PO BID [facility] Last Admin: 10/24/17 21:19 Dose: 75 mg Mirtazapine (Remeron -) 7.5 mg PO HS [facility] Last Admin: 10/24/17 21:21 Dose: 7.5 mg Ranitidine HCl (Zantac -) 150 mg PO BID [facility] Last Admin: 10/24/17 21:19 Dose: 150 mg assmt # A fib with RVR Cardizem 360 and increased toprol to 50 bid still with rapid rates symptomatic RVR will discuss with Cardio will need inc dosing of BB continue to monitor clinically not in CHF on Eliquis # ISMAEL on CKD at baseline # HLD off # thrombocythemia baseline 600 will follow as out patient # depression / anxiety discussed with daughter who provides hx long standing sx of depression and axiety never treated with medical management now overwhelming to patient in ADL continue remeron add ativan 0.5 bid PRN Problem List - Problems (1) Atrial fibrillation Code(s): I48.91 - UNSPECIFIED ATRIAL FIBRILLATION Qualifiers: Atrial fibrillation type: persistent Qualified Code(s): I48.1 - Persistent atrial fibrillation (2) HLD (hyperlipidemia) Code(s): E78.5 - HYPERLIPIDEMIA, UNSPECIFIED (3) Headache Code(s): R51 - HEADACHE Qualifiers: Headache type: unspecified Headache chronicity pattern: episodic headache Intractability: not intractable Qualified Code(s): R51 - Headache (4) Lightheadedness Code(s): R42 - DIZZINESS AND GIDDINESS (5) Thrombocythemia Code(s): D47.3 - ESSENTIAL (HEMORRHAGIC) THROMBOCYTHEMIA
[2017-10-25 07:11] LABS: BASO % 0.6 % (0-2.0); HEMOGLOBIN 13.6 GM/dL (10.7-15.3); LYMPH % 23.5 % (8-40); MCH 23.9 pg (25.7-33.7); MCHC 32.4 g/dl (32.0-36.0); MEAN CELL VOLUME 73.8 fl (80-96); MEAN PLT VOLUME 7.8 fl (7.5-11.1); MONO % 8.7 % (3.8-10.2); NEUT % 67.2 % (42.8-82.8); PLATELET COUNT 998 K/MM3 (134-434); RBC 5.69 M/mm3 (3.60-5.2); RDW 17.7 % (11.6-15.6); WHITE BLOOD COUNT 17.4 K/mm3 (4.0-10.0)
[2017-10-25 08:00] LABS: CHLORIDE 109 mmol/L (98-107); POTASSIUM 4.6 mmol/L (3.5-5.1); SODIUM 143 mmol/L (136-145)
[2017-10-25 08:10] LABS: ALBUMIN 3.2 g/dl (3.4-5.0); ALK PHOS 91 U/L (45-117); ANION GAP 11 (8-16); BILIRUBIN,TOTAL 0.7 mg/dL (0.2-1.0); BLOOD UREA NITROGEN 21 mg/dL (7-18); CALCIUM 8.5 mg/dL (8.5-10.1); CO2 23 mmol/L (21-32); CREATININE 1.3 mg/dL (0.55-1.02); GLUCOSE,RANDOM 76 mg/dL (74-106); SGOT/AST 16 U/L (15-37); SGPT/ALT 23 U/L (12-78); TOT PROT 5.9 g/dl (6.4-8.2)
[2017-10-25] MEDS: APIXABAN 2.5 MG TABLET PO SCH ×2 (09:36→21:25)
[2017-10-25] MEDS: DOCUSATE SODIUM 100 MG CAPSULE (FP) PO SCH ×2 (09:36→21:25)
[2017-10-25] MEDS: RANITIDINE HCL 150 MG TABLET (FP) PO SCH ×2 (09:36→21:26)
--- NOTE | 2017-10-25 10:30 | PN ---
Progress Note (short form) - Note Progress Note: s: no cp sob palps dizzy o: Vital Signs Period Temp Pulse Resp BP Sys/Murdock Pulse Ox Last 24 Hr 97.7 F-98.2 F 83-123 16-18 130-149/69-99 93-97 nad, calm, lying flat jvd flat, neck supple cta bl nl effort irregularly, irregular nl s1, s2 . 2/6 sys murmur at sternal border and apex ND PMI + bs soft nt nd, no hsm ext with no e/c/c aa0x3 no jaundice, diaphoesis Current Medications Generic Name Dose Route Start Last Admin Trade Name Freq PRN Reason Stop Dose Admin Acetaminophen 650 mg 10/17/17 00:10 10/23/17 00:53 Tylenol - PO 650 mg Q6H PRN Administration PAIN LEVEL 1-5 Apixaban 2.5 mg 10/17/17 00:30 10/25/17 09:36 Eliquis - PO 2.5 mg BID [facility] Administration Diltiazem HCl 10 mg 10/17/17 22:59 10/21/17 06:13 Cardizem Injection - IVPUSH 10 mg Q4H PRN Administration TACHYCARDIA Diltiazem HCl 360 mg 10/19/17 10:00 10/25/17 09:35 Cardizem Cd - PO 360 mg DAILY [facility] Administration Docusate Sodium 100 mg 10/17/17 10:00 10/25/17 09:36 Colace - PO 100 mg BID [facility] Administration Metoprolol Succinate 100 mg 10/25/17 10:00 Toprol Xl - PO BID [facility] Mirtazapine 7.5 mg 10/20/17 22:00 10/24/17 21:21 Remeron - PO 7.5 mg HS [facility] Administration Ranitidine HCl 150 mg 10/17/17 10:00 10/25/17 09:36 Zantac - PO 150 mg BID [facility] Administration CBC, BMP 10/25/17 05:05 10/25/17 05:05 ekg: afib, vr 141 bpm rbbb, septal q. inferior twi. ekg #2: similar, vr 100 bpm. tele: afib, hr 100s echo 10/2017: 1+ lvh, lv sys fn is low normal. grade 2 diastolic dysfunction. rv size/fn. mod lae. mod-sev patsy. mild-mod ar. mod mr. sev tr, mod phtn. chest/abd CTA: no acute aortic pathology. + atherosclerosis. cardiomegaly, small pericardial effusion. refluxed contrast seen in hepatic IVC. Dilated PA (3.5 cm), small bilateral pleural effusions with associated compressive atelectasis vs. infiltrates. 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 thyroid nodule. See emr for further details. 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 New afib - cont dilt 360 qd, will increase toprol to 100 bid for better rate control - echo findings noted. preserved LV fn + diastolic dysfunction with phtn. + mod mr. Patient required IVF on admit, not likely to be in HF. daily weights, i/o - now on eliquis, no need for asa htn - stable HL - stable off meds ISMAEL - improved s/p IVF
--- NOTE | 2017-10-25 18:27 | PN ---
Progress Note (short form) - Note Progress Note: today feeling beeter HR in the low 100's still up to 120's asymptomatic Vital Signs Period Temp Pulse Resp BP Sys/Murdock Pulse Ox Last 24 Hr 97.7 F-98.5 F 83-112 16-20 130-140/69-98 93-97 comfortable / less tired neck supple no JVD hear S1/S2 irregularly irreg -100's lungs clear bilat abd soft non tender ext no edema CBC, BMP 10/25/17 05:05 10/25/17 05:05 Microbiology 10/17/17 00:10 Blood - Peripheral Venous Blood Culture - Final NO GROWTH AFTER 5 DAYS INCUBATION 10/16/17 00:00 Blood - Peripheral Venous Blood Culture - Final NO GROWTH AFTER 5 DAYS INCUBATION Active Medications Acetaminophen (Tylenol -) 650 mg PO Q6H PRN PRN Reason: PAIN LEVEL 1-5 Last Admin: 10/23/17 00:53 Dose: 650 mg Apixaban (Eliquis -) 2.5 mg PO BID [facility] Last Admin: 10/24/17 21:19 Dose: 2.5 mg Diltiazem HCl (Cardizem Injection -) 10 mg IVPUSH Q4H PRN PRN Reason: TACHYCARDIA Last Admin: 10/21/17 06:13 Dose: 10 mg Diltiazem HCl (Cardizem Cd -) 360 mg PO DAILY [facility] Last Admin: 10/24/17 09:38 Dose: 360 mg Docusate Sodium (Colace -) 100 mg PO BID [facility] Last Admin: 10/24/17 21:18 Dose: 100 mg Metoprolol Succinate (Toprol Xl -) 75 mg PO BID [facility] Last Admin: 10/24/17 21:19 Dose: 75 mg Mirtazapine (Remeron -) 7.5 mg PO HS [facility] Last Admin: 10/24/17 21:21 Dose: 7.5 mg Ranitidine HCl (Zantac -) 150 mg PO BID [facility] Last Admin: 10/24/17 21:19 Dose: 150 mg assmt # A fib with RVR Cardizem 360 and increased toprol to 100 bid still with rapid rates symptomatic RVR will discuss with Cardio will need inc dosing of BB continue to monitor clinically not in CHF on Eliquis # ISMAEL on CKD at baseline # HLD off # thrombocythemia baseline 600 will follow as out patient # depression / anxiety discussed with daughter who provides hx long standing sx of depression and axiety never treated with medical management now overwhelming to patient in ADL continue remeron add ativan 0.5 bid PRN Problem List - Problems (1) Atrial fibrillation Code(s): I48.91 - UNSPECIFIED ATRIAL FIBRILLATION Qualifiers: Atrial fibrillation type: persistent Qualified Code(s): I48.1 - Persistent atrial fibrillation (2) HLD (hyperlipidemia) Code(s): E78.5 - HYPERLIPIDEMIA, UNSPECIFIED (3) Headache Code(s): R51 - HEADACHE Qualifiers: Headache type: unspecified Headache chronicity pattern: episodic headache Intractability: not intractable Qualified Code(s): R51 - Headache (4) Lightheadedness Code(s): R42 - DIZZINESS AND GIDDINESS (5) Thrombocythemia Code(s): D47.3 - ESSENTIAL (HEMORRHAGIC) THROMBOCYTHEMIA
[2017-10-25] MEDS: MIRTAZAPINE 15 MG TABLET (FP) PO SCH (21:25)
[2017-10-26] MEDS ORDERED: PT OWN MED DRAWER 7, Y5N ONE ×2 (09:29→21:55)
[2017-10-26] MEDS: APIXABAN 2.5 MG TABLET PO SCH ×2 (09:54→22:08)
[2017-10-26] MEDS: DOCUSATE SODIUM 100 MG CAPSULE (FP) PO SCH ×2 (09:54→22:08)
[2017-10-26] MEDS: RANITIDINE HCL 150 MG TABLET (FP) PO SCH ×2 (09:55→22:08)
--- NOTE | 2017-10-26 11:09 | PN ---
Progress Note (short form) - Note Progress Note: s: no cp sob palps dizzy o: Vital Signs Period Temp Pulse Resp BP Sys/Murdock Pulse Ox Last 24 Hr 97.3 F-98.5 F 102-120 18-20 132-154/65-90 96-97 nad, calm, lying flat jvd flat, neck supple cta bl nl effort irregularly, irregular nl s1, s2 . 2/6 sys murmur at sternal border and apex ND PMI + bs soft nt nd, no hsm ext with no e/c/c aa0x3 no jaundice, diaphoesis Current Medications Generic Name Dose Route Start Last Admin Trade Name Freq PRN Reason Stop Dose Admin Acetaminophen 650 mg 10/17/17 00:10 10/23/17 00:53 Tylenol - PO 650 mg Q6H PRN Administration PAIN LEVEL 1-5 Apixaban 2.5 mg 10/17/17 00:30 10/26/17 09:54 Eliquis - PO 2.5 mg BID [facility] Administration Diltiazem HCl 10 mg 10/17/17 22:59 10/21/17 06:13 Cardizem Injection - IVPUSH 10 mg Q4H PRN Administration TACHYCARDIA Docusate Sodium 100 mg 10/17/17 10:00 10/26/17 09:54 Colace - PO 100 mg BID [facility] Administration Metoprolol Succinate 100 mg 10/25/17 10:00 10/26/17 09:55 Toprol Xl - PO 100 mg BID [facility] Administration Mirtazapine 7.5 mg 10/20/17 22:00 10/25/17 21:25 Remeron - PO 7.5 mg HS [facility] Administration Ranitidine HCl 150 mg 10/17/17 10:00 10/26/17 09:55 Zantac - PO 150 mg BID [facility] Administration Verapamil HCl 180 mg 10/26/17 11:15 Calan Sr - PO BID [facility] CBC, BMP 10/25/17 05:05 10/25/17 05:05 ekg: afib, vr 141 bpm rbbb, septal q. inferior twi. ekg #2: similar, vr 100 bpm. tele: afib, hr 120s at times echo 10/2017: 1+ lvh, lv sys fn is low normal. grade 2 diastolic dysfunction. rv size/fn. mod lae. mod-sev patsy. mild-mod ar. mod mr. sev tr, mod phtn. chest/abd CTA: no acute aortic pathology. + atherosclerosis. cardiomegaly, small pericardial effusion. refluxed contrast seen in hepatic IVC. Dilated PA (3.5 cm), small bilateral pleural effusions with associated compressive atelectasis vs. infiltrates. 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 thyroid nodule. See emr for further details. 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 New afib - still with rvr at times. will change dilt 360 to verapamil 180 bid and cont toprol 100 bid, monitor tele - echo findings noted. preserved LV fn + diastolic dysfunction with phtn. + mod mr. Patient required IVF on admit, not likely to be in HF. daily weights, i/o - now on eliquis, no need for asa htn - stable HL - stable off meds ISMAEL - improved s/p IVF
[2017-10-26] MEDS: VERAPAMIL HCL 180 MG E.R. TABLET (FP) PO SCH ×2 (11:54→22:09)
--- NOTE | 2017-10-26 16:05 | PN ---
Progress Note (short form) - Note Progress Note: Pt found lying in bed with nasal O2 in place. No c/o pain or discomfort. Vital Signs Period Temp Pulse Resp BP Sys/Murdock Pulse Ox Last 24 Hr 97.3 F-98.5 F 107-127 18-20 125-154/65-91 96-97 HEENT- NL Neck- supple Lungs- CTAB Heart- irregularly irregular HR 100-120s Abd- soft, Pos bs x 4 Ext- Neg LE edema CBC, BMP 10/25/17 05:05 10/25/17 05:05 Active Medications Acetaminophen (Tylenol -) 650 mg PO Q6H PRN PRN Reason: PAIN LEVEL 1-5 Last Admin: 10/23/17 00:53 Dose: 650 mg Apixaban (Eliquis -) 2.5 mg PO BID [facility] Last Admin: 10/26/17 09:54 Dose: 2.5 mg Diltiazem HCl (Cardizem Injection -) 10 mg IVPUSH Q4H PRN PRN Reason: TACHYCARDIA Last Admin: 10/21/17 06:13 Dose: 10 mg Docusate Sodium (Colace -) 100 mg PO BID [facility] Last Admin: 10/26/17 09:54 Dose: 100 mg Metoprolol Succinate (Toprol Xl -) 100 mg PO BID [facility] Last Admin: 10/26/17 09:55 Dose: 100 mg Mirtazapine (Remeron -) 7.5 mg PO HS [facility] Last Admin: 10/25/17 21:25 Dose: 7.5 mg Ranitidine HCl (Zantac -) 150 mg PO BID [facility] Last Admin: 10/26/17 09:55 Dose: 150 mg Verapamil HCl (Calan Sr -) 180 mg PO BID [facility] Last Admin: 10/26/17 11:54 Dose: 180 mg assmt # A fib with RVR Cardizem 360 and increased toprol to 100 bid still with rapid rates symptomatic RVR Cardiology consult appreciated clinically not in CHF on Eliquis # ISMAEL on CKD at baseline # HLD Controlled with diet # thrombocythemia baseline 600 will follow as out patient # depression / anxiety long standing sx of depression and anxiety never treated with medical management continue remeron Problem List - Problems (1) Atrial fibrillation Code(s): I48.91 - UNSPECIFIED ATRIAL FIBRILLATION Qualifiers: Atrial fibrillation type: persistent Qualified Code(s): I48.1 - Persistent atrial fibrillation (2) HLD (hyperlipidemia) Code(s): E78.5 - HYPERLIPIDEMIA, UNSPECIFIED (3) Headache Code(s): R51 - HEADACHE Qualifiers: Headache type: unspecified Headache chronicity pattern: episodic headache Intractability: not intractable Qualified Code(s): R51 - Headache (4) Lightheadedness Code(s): R42 - DIZZINESS AND GIDDINESS (5) Thrombocythemia Code(s): D47.3 - ESSENTIAL (HEMORRHAGIC) THROMBOCYTHEMIA
[2017-10-26] MEDS: MIRTAZAPINE 15 MG TABLET (FP) PO SCH (22:08)
[2017-10-27] MEDS: ACETAMINOPHEN 325 MG TABLET (FP) PO PRN (00:22)
[2017-10-27] MEDS: LORazepam 0.5 MG TABLET PO PRN (00:44)
[2017-10-27 07:52] LABS: ANION GAP 9 (8-16); BLOOD UREA NITROGEN 36 mg/dL (7-18); CALCIUM 8.5 mg/dL (8.5-10.1); CHLORIDE 109 mmol/L (98-107); CO2 25 mmol/L (21-32); CREATININE 1.5 mg/dL (0.55-1.02); GLUCOSE,RANDOM 91 mg/dL (74-106); POTASSIUM 5.3 mmol/L (3.5-5.1); SODIUM 143 mmol/L (136-145)
[2017-10-27 08:08] LABS: BASO % 0.1 % (0-2.0); HEMATOCRIT 40.9 % (32.4-45.2); HEMOGLOBIN 12.9 GM/dL (10.7-15.3); LYMPH % 12.7 % (8-40); MCH 23.1 pg (25.7-33.7); MCHC 31.5 g/dl (32.0-36.0); MEAN CELL VOLUME 73.2 fl (80-96); MEAN PLT VOLUME 8.1 fl (7.5-11.1); NEUT % 80.2 % (42.8-82.8); PLATELET COUNT 1049 K/MM3 (134-434); RBC 5.59 M/mm3 (3.60-5.2); RDW 17.6 % (11.6-15.6)
[2017-10-27] MEDS ORDERED: PT OWN MED DRAWER 7, Y5N ONE ×2 (09:02→22:00)
[2017-10-27] MEDS: DOCUSATE SODIUM 100 MG CAPSULE (FP) PO SCH ×2 (09:26→22:10)
[2017-10-27] MEDS: RANITIDINE HCL 150 MG TABLET (FP) PO SCH ×2 (09:26→22:11)
[2017-10-27] MEDS: APIXABAN 2.5 MG TABLET PO SCH ×2 (09:26→22:10)
[2017-10-27] MEDS: VERAPAMIL HCL 180 MG E.R. TABLET (FP) PO SCH ×2 (09:26→22:11)
--- NOTE | 2017-10-27 11:32 | PN ---
Progress Note (short form) - Note Progress Note: s: no cp sob palps dizzy o: Vital Signs Period Temp Pulse Resp BP Sys/Murdock Pulse Ox Last 24 Hr 97.2 F-98.8 F 83-127 18-20 104-145/69-91 99-99 nad, calm, lying flat jvd flat, neck supple cta bl nl effort irregularly, irregular nl s1, s2 . 2/6 sys murmur at sternal border and apex ND PMI + bs soft nt nd, no hsm ext with no e/c/c aa0x3 no jaundice, diaphoesis Current Medications Generic Name Dose Route Start Last Admin Trade Name Freq PRN Reason Stop Dose Admin Acetaminophen 650 mg 10/17/17 00:10 10/23/17 00:53 Tylenol - PO 650 mg Q6H PRN Administration PAIN LEVEL 1-5 Apixaban 2.5 mg 10/17/17 00:30 10/27/17 09:26 Eliquis - PO 2.5 mg BID [facility] Administration Diltiazem HCl 10 mg 10/17/17 22:59 10/21/17 06:13 Cardizem Injection - IVPUSH 10 mg Q4H PRN Administration TACHYCARDIA Docusate Sodium 100 mg 10/17/17 10:00 10/27/17 09:26 Colace - PO 100 mg BID [facility] Administration Lorazepam 0.5 mg 10/27/17 00:38 10/27/17 00:44 Ativan - PO 0.5 mg BID PRN Administration ANXIETY Mirtazapine 15 mg 10/27/17 09:32 Remeron - PO HS [facility] Propranolol HCl 80 mg 10/27/17 11:30 Inderal La - PO DAILY [facility] Ranitidine HCl 150 mg 10/17/17 10:00 10/27/17 09:26 Zantac - PO 150 mg BID [facility] Administration Verapamil HCl 180 mg 10/26/17 11:15 10/27/17 09:26 Calan Sr - PO 180 mg BID [facility] Administration CBC, BMP 10/27/17 06:30 10/27/17 06:30 ekg: afib, vr 141 bpm rbbb, septal q. inferior twi. ekg #2: similar, vr 100 bpm. tele: afib, hr 120s at times echo 10/2017: 1+ lvh, lv sys fn is low normal. grade 2 diastolic dysfunction. rv size/fn. mod lae. mod-sev patsy. mild-mod ar. mod mr. sev tr, mod phtn. chest/abd CTA: no acute aortic pathology. + atherosclerosis. cardiomegaly, small pericardial effusion. refluxed contrast seen in hepatic IVC. Dilated PA (3.5 cm), small bilateral pleural effusions with associated compressive atelectasis vs. infiltrates. 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 thyroid nodule. See emr for further details. 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 New afib - still with rvr at times. dilt 360 with toprol 100 bid did not control rate well, next tried toprol 100 bid with verapamil 180 bid but still not controlled well. Now will try verapamil 180 bid with inderal 80 qd. If cannot achieve good rate control with meds will consider dccv. This was d/w pt and her son who were in agreement. monitor tele. - echo findings noted. preserved LV fn + diastolic dysfunction with phtn. + mod mr. - no signs chf - now on eliquis, no need for asa htn - stable HL - stable off meds ISMAEL - improved s/p IVF
[2017-10-27] MEDS: MIRTAZAPINE 15 MG TABLET (FP) PO SCH (22:10)
[2017-10-28] MEDS: ACETAMINOPHEN 325 MG TABLET (FP) PO PRN (08:56)
[2017-10-28] MEDS: LORazepam 0.5 MG TABLET PO PRN (08:57)
[2017-10-28] MEDS: DOCUSATE SODIUM 100 MG CAPSULE (FP) PO SCH ×2 (08:59→21:08)
[2017-10-28] MEDS: RANITIDINE HCL 150 MG TABLET (FP) PO SCH ×2 (08:59→21:09)
[2017-10-28] MEDS: APIXABAN 2.5 MG TABLET PO SCH ×2 (08:59→21:08)
--- NOTE | 2017-10-28 10:07 | PN ---
Progress Note, Physician History of Present Illness: Daughter at bedside Feels nausea and overall not well No palpitations or dyspnea Subjectively feels edema is much improved Tele: Afib 70s. - Current Medication List Current Medications: Active Medications Acetaminophen (Tylenol -) 650 mg PO Q6H PRN PRN Reason: PAIN LEVEL 1-5 Last Admin: 10/28/17 08:56 Dose: 650 mg Apixaban (Eliquis -) 2.5 mg PO BID [facility] Last Admin: 10/28/17 08:59 Dose: 2.5 mg Diltiazem HCl (Cardizem Injection -) 10 mg IVPUSH Q4H PRN PRN Reason: TACHYCARDIA Last Admin: 10/21/17 06:13 Dose: 10 mg Docusate Sodium (Colace -) 100 mg PO BID [facility] Last Admin: 10/28/17 08:59 Dose: 100 mg Lorazepam (Ativan -) 0.5 mg PO BID PRN PRN Reason: ANXIETY Last Admin: 10/28/17 08:57 Dose: 0.5 mg Mirtazapine (Remeron -) 15 mg PO HS [facility] Last Admin: 10/27/17 22:10 Dose: 15 mg Propranolol HCl (Inderal La -) 80 mg PO DAILY [facility] Last Admin: 10/27/17 14:35 Dose: 80 mg Ranitidine HCl (Zantac -) 150 mg PO BID [facility] Last Admin: 10/28/17 08:59 Dose: 150 mg Verapamil HCl (Calan Sr -) 180 mg PO BID [facility] Last Admin: 10/27/17 22:11 Dose: 180 mg - Objective Vital Signs: Vital Signs Temperature 98.7 F 10/28/17 09:00 Pulse Rate 79 10/28/17 09:00 Respiratory Rate 18 10/28/17 09:00 Blood Pressure 96/60 10/28/17 09:00 O2 Sat by Pulse Oximetry (%) 100 10/28/17 09:00 Constitutional: Yes: No Distress, Calm Eyes: Yes: WNL HENT: Yes: WNL Neck: Yes: WNL Cardiovascular: Yes: Pulse Irregular Respiratory: Yes: WNL, CTA Bilaterally Gastrointestinal: Yes: Normal Bowel Sounds Genitourinary: Yes: WNL Extremities: Yes: WNL Edema: No Labs: CBC, BMP 10/27/17 06:30 10/27/17 06:30 INR, PTT INR 1.32 (0.82-1.09) H 10/16/17 19:35 Assessment/Plan 81 yo with pmhx of HTN, HLD, h/o "irregular heart beat" on past notes but hasn' t seen deliverer pharmacy in years, thrombocythemia ( on Hydroxyurea) and recent admit in August for atypical pna who p/w weakness and sob and noted to have new afib with RVR. New afib - Difficult to rate control. Now has good rate control on Verapamil 180 BID and Inderal 80 which she should continue. - echo findings noted. preserved LV fn + diastolic dysfunction with phtn. + mod mr. - no signs chf - now on eliquis and tolerating without bleeding, no need for asa htn - stable HL - stable off meds ISMAEL - improved s/p IVF
[2017-10-28] MEDS: VERAPAMIL HCL 180 MG E.R. TABLET (FP) PO SCH ×2 (12:43→21:08)
[2017-10-28] MEDS ORDERED: ONDANSETRON 4 MG/2 ML VIAL IVPB ONE (12:45)
[2017-10-28] MEDS ORDERED: ONDANSETRON 4 MG/2 ML VIAL IVPUSH PRN (16:04)
--- NOTE | 2017-10-28 16:27 | PN ---
Progress Note (short form) - Note Progress Note: daughter at bedside patient very anxious this am "could not swallow" ( new complaint) however was able to eat later in the afternoon HR seems to be better controlled at this time Vital Signs Period Temp Pulse Resp BP Sys/Murdock Pulse Ox Last 24 Hr 97.7 F-98.5 F 83-112 16-20 130-140/69-98 93-97 tired / drowsy / sleeping neck supple no JVD hear S1/S2 irregularly irreg -100's lungs clear bilat abd soft non tender ext no edema CBC, BMP 10/25/17 05:05 10/25/17 05:05 Microbiology 10/17/17 00:10 Blood - Peripheral Venous Blood Culture - Final NO GROWTH AFTER 5 DAYS INCUBATION 10/16/17 00:00 Blood - Peripheral Venous Blood Culture - Final NO GROWTH AFTER 5 DAYS INCUBATION Active Medications Acetaminophen (Tylenol -) 650 mg PO Q6H PRN PRN Reason: PAIN LEVEL 1-5 Last Admin: 10/23/17 00:53 Dose: 650 mg Apixaban (Eliquis -) 2.5 mg PO BID [facility] Last Admin: 10/24/17 21:19 Dose: 2.5 mg Diltiazem HCl (Cardizem Injection -) 10 mg IVPUSH Q4H PRN PRN Reason: TACHYCARDIA Last Admin: 10/21/17 06:13 Dose: 10 mg Diltiazem HCl (Cardizem Cd -) 360 mg PO DAILY [facility] Last Admin: 10/24/17 09:38 Dose: 360 mg Docusate Sodium (Colace -) 100 mg PO BID [facility] Last Admin: 10/24/17 21:18 Dose: 100 mg Metoprolol Succinate (Toprol Xl -) 75 mg PO BID [facility] Last Admin: 10/24/17 21:19 Dose: 75 mg Mirtazapine (Remeron -) 7.5 mg PO HS [facility] Last Admin: 10/24/17 21:21 Dose: 7.5 mg Ranitidine HCl (Zantac -) 150 mg PO BID [facility] Last Admin: 10/24/17 21:19 Dose: 150 mg assmt # A fib with RVR will discuss with Cardio consideration for Cardioversion continue to monitor clinically not in CHF on Eliquis # ISMAEL on CKD poor PO intake in last 24 hours in Cr start IV fluids # HLD off # thrombocythemia baseline 600 will follow as out patient # depression / anxiety discussed with daughter who provides hx long standing sx of depression and anxiety never treated with medical management now overwhelming to patient in ADL continue remeron add xanax 0.25mg BID Problem List - Problems (1) Atrial fibrillation Code(s): I48.91 - UNSPECIFIED ATRIAL FIBRILLATION Qualifiers: Atrial fibrillation type: persistent Qualified Code(s): I48.1 - Persistent atrial fibrillation (2) HLD (hyperlipidemia) Code(s): E78.5 - HYPERLIPIDEMIA, UNSPECIFIED (3) Headache Code(s): R51 - HEADACHE Qualifiers: Headache type: unspecified Headache chronicity pattern: episodic headache Intractability: not intractable Qualified Code(s): R51 - Headache (4) Lightheadedness Code(s): R42 - DIZZINESS AND GIDDINESS (5) Thrombocythemia Code(s): D47.3 - ESSENTIAL (HEMORRHAGIC) THROMBOCYTHEMIA
[2017-10-28] MEDS ORDERED: PT OWN MED DRAWER 7, Y5N ONE (20:41)
[2017-10-28] MEDS: MIRTAZAPINE 15 MG TABLET (FP) PO SCH (21:08)
[2017-10-28] MEDS: ALPRAZolam 0.25 MG TABLET PO SCH (21:09)
[2017-10-28] MEDS ORDERED: DEXTROSE 5%-0.45% SALINE 1,000 ML IV SCH (22:45)
[2017-10-29 06:35] LABS: BASO % 0.1 % (0-2.0); HEMATOCRIT 37.6 % (32.4-45.2); HEMOGLOBIN 11.8 GM/dL (10.7-15.3); LYMPH % 19.2 % (8-40); MCH 23.1 pg (25.7-33.7); MCHC 31.5 g/dl (32.0-36.0); MEAN CELL VOLUME 73.3 fl (80-96); MEAN PLT VOLUME 8.3 fl (7.5-11.1); MONO % 9.4 % (3.8-10.2); NEUT % 71.3 % (42.8-82.8); PLATELET COUNT 1033 K/MM3 (134-434); RBC 5.13 M/mm3 (3.60-5.2); RDW 17.4 % (11.6-15.6); WHITE BLOOD COUNT 16.3 K/mm3 (4.0-10.0)
[2017-10-29 06:48] LABS: ANION GAP 8 (8-16); BLOOD UREA NITROGEN 43 mg/dL (7-18); CALCIUM 8.1 mg/dL (8.5-10.1); CHLORIDE 110 mmol/L (98-107); CO2 26 mmol/L (21-32); GLUCOSE,RANDOM 87 mg/dL (74-106); POTASSIUM 5.1 mmol/L (3.5-5.1); SODIUM 144 mmol/L (136-145)
[2017-10-29 07:00] LABS: ALK PHOS 101 U/L (45-117); BILIRUBIN,TOTAL 0.5 mg/dL (0.2-1.0); SGOT/AST 32 U/L (15-37); SGPT/ALT 71 U/L (12-78); TOT PROT 5.3 g/dl (6.4-8.2)
[2017-10-29 07:13] LABS: LIPASE 210 U/L (73-393)
[2017-10-29] MEDS ORDERED: PT OWN MED DRAWER 7, Y5N ONE ×2 (08:08→11:15)
[2017-10-29] MEDS: RANITIDINE HCL 150 MG TABLET (FP) PO SCH ×2 (09:22→21:09)
[2017-10-29] MEDS: APIXABAN 2.5 MG TABLET PO SCH ×2 (09:23→21:09)
[2017-10-29] MEDS: VERAPAMIL HCL 180 MG E.R. TABLET (FP) PO SCH ×2 (09:23→21:08)
[2017-10-29] MEDS: ALPRAZolam 0.25 MG TABLET PO SCH ×2 (09:23→21:09)
[2017-10-29] MEDS: DOCUSATE SODIUM 100 MG CAPSULE (FP) PO SCH ×2 (09:23→21:08)
--- NOTE | 2017-10-29 10:24 | PN ---
Progress Note, Physician History of Present Illness: Feels improved from yesterday Much less weak No palps, dyspena or chest pain Tele: Afib 80-110/min - Current Medication List Current Medications: Active Medications Acetaminophen (Tylenol -) 650 mg PO Q6H PRN PRN Reason: PAIN LEVEL 1-5 Last Admin: 10/28/17 08:56 Dose: 650 mg Alprazolam (Xanax -) 0.25 mg PO BID [facility] Last Admin: 10/29/17 09:23 Dose: 0.25 mg Apixaban (Eliquis -) 2.5 mg PO BID [facility] Last Admin: 10/29/17 09:23 Dose: 2.5 mg Diltiazem HCl (Cardizem Injection -) 10 mg IVPUSH Q4H PRN PRN Reason: TACHYCARDIA Last Admin: 10/21/17 06:13 Dose: 10 mg Docusate Sodium (Colace -) 100 mg PO BID [facility] Last Admin: 10/29/17 09:23 Dose: 100 mg Dextrose/Sodium Chloride (D5-1/2ns -) 1,000 mls @ 75 mls/hr IV ASDIR [facility] Stop: 10/29/17 10:44 Last Admin: 10/29/17 00:00 Dose: 75 mls/hr Mirtazapine (Remeron -) 15 mg PO HS [facility] Last Admin: 10/28/17 21:08 Dose: 15 mg Ondansetron HCl (Zofran Injection) 4 mg IVPUSH Q4H PRN PRN Reason: NAUSEA AND/OR VOMITING Propranolol HCl (Inderal La -) 80 mg PO DAILY [facility] Last Admin: 10/29/17 09:23 Dose: 80 mg Ranitidine HCl (Zantac -) 150 mg PO BID [facility] Last Admin: 10/29/17 09:22 Dose: 150 mg Verapamil HCl (Calan Sr -) 180 mg PO BID [facility] Last Admin: 10/29/17 09:23 Dose: 180 mg - Objective Vital Signs: Vital Signs Temperature 97.6 F 10/29/17 08:32 Pulse Rate 92 H 10/29/17 08:32 Respiratory Rate 18 10/29/17 08:32 Blood Pressure 120/58 10/29/17 08:32 O2 Sat by Pulse Oximetry (%) 98 10/29/17 08:34 Constitutional: Yes: No Distress, Calm Eyes: Yes: WNL HENT: Yes: WNL Neck: Yes: WNL Cardiovascular: Yes: Pulse Irregular, Murmur Respiratory: Yes: CTA Bilaterally Gastrointestinal: Yes: Normal Bowel Sounds Extremities: Yes: WNL Edema: No Labs: CBC, BMP 10/29/17 05:05 10/29/17 05:05 INR, PTT INR 1.32 (0.82-1.09) H 10/16/17 19:35 Assessment/Plan 81 yo with pmhx of HTN, HLD, h/o "irregular heart beat" on past notes but 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 New afib - Difficult to rate control. -Rates increased a bit in past 24 hours -Will increase Inderal LA to 120mg daily -Continue Verapamil 180mg BID - echo findings noted. preserved LV fn + diastolic dysfunction with phtn. + mod mr. - no signs chf - now on eliquis and tolerating without bleeding, no need for asa htn - stable HL - stable off meds ISMAEL - improved s/p IVF
[2017-10-29] MEDS: DEXTROSE 5%-0.45% SALINE 1,000 ML IV SCH (13:40)
[2017-10-29] MEDS: HYDROXYUREA 500 MG CAPSULE PO SCH (14:08)
--- NOTE | 2017-10-29 20:32 | PN ---
Progress Note (short form) - Note Progress Note: feeling better today less anxiety still with poor intake discussed cardioversion Vital Signs Period Temp Pulse Resp BP Sys/Murdock Pulse Ox Last 24 Hr 97.6 F-98.5 F 55-101 18-20 99-138/58-87 97-98 comfortable / less tired neck supple no JVD hear S1/S2 irregularly irreg -100's lungs clear bilat abd soft non tender ext no edema CBC, BMP 10/29/17 05:05 10/29/17 05:05 Microbiology 10/17/17 00:10 Blood - Peripheral Venous Blood Culture - Final NO GROWTH AFTER 5 DAYS INCUBATION 10/16/17 00:00 Blood - Peripheral Venous Blood Culture - Final NO GROWTH AFTER 5 DAYS INCUBATION Active Medications Acetaminophen (Tylenol -) 650 mg PO Q6H PRN PRN Reason: PAIN LEVEL 1-5 Last Admin: 10/28/17 08:56 Dose: 650 mg Alprazolam (Xanax -) 0.25 mg PO BID [facility] Last Admin: 10/29/17 09:23 Dose: 0.25 mg Apixaban (Eliquis -) 2.5 mg PO BID [facility] Last Admin: 10/29/17 09:23 Dose: 2.5 mg Diltiazem HCl (Cardizem Injection -) 10 mg IVPUSH Q4H PRN PRN Reason: TACHYCARDIA Last Admin: 10/21/17 06:13 Dose: 10 mg Docusate Sodium (Colace -) 100 mg PO BID [facility] Last Admin: 10/29/17 09:23 Dose: 100 mg Hydroxyurea (Hydrea -) 500 mg PO DAILY [facility] Last Admin: 10/29/17 14:08 Dose: 500 mg Dextrose/Sodium Chloride (D5-1/2ns -) 1,000 mls @ 75 mls/hr IV ASDIR [facility] Last Admin: 10/29/17 13:40 Dose: 75 mls/hr Mirtazapine (Remeron -) 15 mg PO HS [facility] Last Admin: 10/28/17 21:08 Dose: 15 mg Ondansetron HCl (Zofran Injection) 4 mg IVPUSH Q4H PRN PRN Reason: NAUSEA AND/OR VOMITING Propranolol HCl (Inderal La -) 120 mg PO DAILY [facility] Ranitidine HCl (Zantac -) 150 mg PO BID [facility] Last Admin: 10/29/17 09:22 Dose: 150 mg Verapamil HCl (Calan Sr -) 180 mg PO BID [facility] Last Admin: 10/29/17 09:23 Dose: 180 mg assmt # A fib with RVR better control continue to monitor clinically not in CHF on Eliquis # ISMAEL on CKD increasing Cr continue IV fluids -- on evidence of HF # HLD off # thrombocythemia resume hydroxyurea # depression / anxiety discussed with daughter who provides hx long standing sx of depression and anxiety never treated with medical management now overwhelming to patient in ADL continue remeron at 15 mg add xanax 0.25mg BID Problem List - Problems (1) Atrial fibrillation Code(s): I48.91 - UNSPECIFIED ATRIAL FIBRILLATION Qualifiers: Atrial fibrillation type: persistent Qualified Code(s): I48.1 - Persistent atrial fibrillation (2) HLD (hyperlipidemia) Code(s): E78.5 - HYPERLIPIDEMIA, UNSPECIFIED (3) Headache Code(s): R51 - HEADACHE Qualifiers: Headache type: unspecified Headache chronicity pattern: episodic headache Intractability: not intractable Qualified Code(s): R51 - Headache (4) Lightheadedness Code(s): R42 - DIZZINESS AND GIDDINESS (5) Thrombocythemia Code(s): D47.3 - ESSENTIAL (HEMORRHAGIC) THROMBOCYTHEMIA
[2017-10-29] MEDS: MIRTAZAPINE 15 MG TABLET (FP) PO SCH (21:09)
[2017-10-30] MEDS ORDERED: LORazepam 2 MG/ML SDV VIAL IVPUSH PRN (04:01)
[2017-10-30 07:17] LABS: BASO % 0.1 % (0-2.0); HEMATOCRIT 41.9 % (32.4-45.2); HEMOGLOBIN 12.6 GM/dL (10.7-15.3); LYMPH % 15.6 % (8-40); MCH 22.3 pg (25.7-33.7); MCHC 30.2 g/dl (32.0-36.0); MEAN CELL VOLUME 73.8 fl (80-96); MEAN PLT VOLUME 8.4 fl (7.5-11.1); MONO % 9.3 % (3.8-10.2); RBC 5.67 M/mm3 (3.60-5.2); RDW 17.6 % (11.6-15.6)
[2017-10-30 07:23] LABS: ANION GAP 12 (8-16); BLOOD UREA NITROGEN 38 mg/dL (7-18); CALCIUM 8.9 mg/dL (8.5-10.1); CHLORIDE 107 mmol/L (98-107); CO2 24 mmol/L (21-32); GLUCOSE,RANDOM 91 mg/dL (74-106); POTASSIUM 5.7 mmol/L (3.5-5.1); SODIUM 143 mmol/L (136-145)
[2017-10-30 07:25] LABS: CREATININE 1.8 mg/dL (0.55-1.02)
[2017-10-30 07:43] LABS: PLATELET COUNT 1158 K/MM3 (134-434)
--- NOTE | 2017-10-30 10:40 | PN ---
Progress Note, Physician Chief Complaint: afib History of Present Illness: feels a bit sob sometimes, while in bed feels dizzy sometimes, while in bed feels anxious and panicky sometimes. feels overwhelmed and wants IV out, wants to go home no leg swelling, cp, syncope no cigs - Current Medication List Current Medications: Active Medications Acetaminophen (Tylenol -) 650 mg PO Q6H PRN PRN Reason: PAIN LEVEL 1-5 Last Admin: 10/28/17 08:56 Dose: 650 mg Alprazolam (Xanax -) 0.25 mg PO BID [facility] Last Admin: 10/29/17 21:09 Dose: 0.25 mg Apixaban (Eliquis -) 2.5 mg PO BID [facility] Last Admin: 10/29/17 21:09 Dose: 2.5 mg Diltiazem HCl (Cardizem Injection -) 10 mg IVPUSH Q4H PRN PRN Reason: TACHYCARDIA Last Admin: 10/21/17 06:13 Dose: 10 mg Docusate Sodium (Colace -) 100 mg PO BID [facility] Last Admin: 10/29/17 21:08 Dose: Not Given Hydroxyurea (Hydrea -) 500 mg PO DAILY [facility] Last Admin: 10/29/17 14:08 Dose: 500 mg Dextrose/Sodium Chloride (D5-1/2ns -) 1,000 mls @ 75 mls/hr IV ASDIR [facility] Last Admin: 10/29/17 13:40 Dose: 75 mls/hr Lorazepam (Ativan Injection -) 1 mg IVPUSH Q8H PRN PRN Reason: SEVERE AGITATION / ANXIETY Mirtazapine (Remeron -) 15 mg PO HS [facility] Last Admin: 10/29/17 21:09 Dose: 15 mg Ondansetron HCl (Zofran Injection) 4 mg IVPUSH Q4H PRN PRN Reason: NAUSEA AND/OR VOMITING Propranolol HCl (Inderal La -) 120 mg PO DAILY [facility] Ranitidine HCl (Zantac -) 150 mg PO BID [facility] Last Admin: 10/29/17 21:09 Dose: 150 mg Verapamil HCl (Calan Sr -) 180 mg PO BID [facility] Last Admin: 10/29/17 21:08 Dose: 180 mg - Objective Vital Signs: Vital Signs Temperature 98.2 F 10/30/17 09:00 Pulse Rate 94 H 10/30/17 09:00 Respiratory Rate 16 10/30/17 09:00 Blood Pressure 110/42 10/30/17 09:00 O2 Sat by Pulse Oximetry (%) 98 10/29/17 21:00 Constitutional: Yes: No Distress, Calm Eyes: No: Sclera Icterus HENT: No: Nasal Congestion Cardiovascular: Yes: Pulse Irregular, JVD (6-8 cm), S1, S2, Other (PMI non diplaced). No: Gallop, Murmur Respiratory: Yes: CTA Bilaterally. No: Accessory Muscle Use, Rales, Wheezes Gastrointestinal: Yes: Normal Bowel Sounds, Soft. No: Tenderness Musculoskeletal: Yes: Other (No kyphosis) Extremities: No: Cold Edema: No Integumentary: No: Jaundice Neurological: Yes: Alert, Oriented (x3) Psychiatric: No: Agitated Labs: CBC, BMP 10/30/17 06:25 10/30/17 06:25 INR, PTT INR 1.32 (0.82-1.09) H 10/16/17 19:35 - ....Imaging EKG: Other (tele: afib 70s-100s) Assessment/Plan ekg: rapid afib, no acute isch findings echo 10/2017: 1+ lvh, lv sys fn is low normal. grade 2 diastolic dysfunction. rv size/fn. mod lae. mod-sev patsy. mild-mod ar. mod mr. sev tr, mod phtn. chest/abd CTA: no acute aortic pathology, + atherosclerosis. cardiomegaly, small pericardial effusion. refluxed contrast seen in hepatic IVC. Dilated PA (3.5 cm), small bilateral pleural effusions with associated compressive atelectasis vs. infiltrates. 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 thyroid nodule. See emr for further details. A/P 81 yo with pmhx of HTN, HLD, h/o "irregular heart beat" on past notes but hasn' t seen operating room aide in years, thrombocythemia ( on Hydroxyurea) and recent admit in August for atypical pna who p/w weakness and sob and noted to have new afib with RVR. New afib - HRs rapid here, despite dilt 360 with toprol 100 bid, then changed to toprol 100 bid with verapamil 180 bid. - 10/29 changed to verapamil 180 bid with inderal 80 qd. If cannot achieve good rate control with meds will consider dccv (dr klein d/w pt and son who were in agreement.) - 10/30: HR well controlled, at times 100s in bed. recommend assess HR when pt OOB - cont tele - now on eliquis, no need for asa acute diast CHF, moderate MR, severe TR, mod pHTN: - dilated PA suggesting a degree of chronic pulm HTN here - small bilat effusions on CT chest, with lower lung field interlobular septal thickening ? sec to interstitial edema. Contrast noted to be refluxing into IVC and hepatic vein, suggestive of high right-heart pressure, possibly severe TR. - 10/30: + JVD on exam, feels sob at times in bed (? chf sx, vs transient rapid afib sx) - ? HFpEF (sec to rapid Afib) with acute remodeling and L-->R sided elevation in filling pressures. vs ? chronic pHTN with primarily right-sided HF picture - ISMAEL here, ? cardiorenal syndrome presently - pt wants IV removed--start lasix 40 po daily, trend renal fxn daily - bp's 100s-110s at times, with dizzy sx's ? sec to doses of AVN blockers. will defer nitrates presently for cardiorenal syndrome - rec rpt echo as outpt in office once HR controlled, and consider further w/u of pulm HTN and/or valve dz at that time as appropriate htn - stable HL - stable off meds ISMAEL on CKD: - baseline creat 1.2-1.3 (08/20) - remains with worse renal fxn here, s/p IVF - ? etiology, no signif pathology on CT abdomen here (cardiorenal??) explained to pt and family at bedside i do not advise she leave the hospital while still evidence of volume-up, especially until we confirm good HR control when she is ambulating
[2017-10-30] MEDS ORDERED: FUROSEMIDE 40 MG TABLET (FP) PO SCH (12:15)
--- NOTE | 2017-10-30 12:56 | PN ---
Progress Note (short form) - Note Progress Note: agitated / delusional / paranoid thinks nurses are Putting other drugs in her IV refused IV this am discussed extensively with daughter who states patient has had similar episodes as manifestations of drug reaction -Promethazine / corcidian usually clearing up in 2 days long hx of anxiety never treated will request Psych evaluation but would hold off on meds still improved Vital Signs Period Temp Pulse Resp BP Sys/Murdock Pulse Ox Last 24 Hr 97.6 F-98.5 F 62-110 16-20 99-126/42-70 98 comfortable / less tired neck supple no JVD hear S1/S2 irregularly irreg -100's lungs clear bilat abd soft non tender ext no edema CB CBC, BMP 10/30/17 06:25 10/30/17 06:25 Microbiology 10/17/17 00:10 Blood - Peripheral Venous Blood Culture - Final NO GROWTH AFTER 5 DAYS INCUBATION 10/16/17 00:00 Blood - Peripheral Venous Blood Culture - Final NO GROWTH AFTER 5 DAYS INCUBATION Active Medications Acetaminophen (Tylenol -) 650 mg PO Q6H PRN PRN Reason: PAIN LEVEL 1-5 Last Admin: 10/28/17 08:56 Dose: 650 mg Apixaban (Eliquis -) 2.5 mg PO BID [facility] Last Admin: 10/29/17 21:09 Dose: 2.5 mg Diltiazem HCl (Cardizem Injection -) 10 mg IVPUSH Q4H PRN PRN Reason: TACHYCARDIA Last Admin: 10/21/17 06:13 Dose: 10 mg Docusate Sodium (Colace -) 100 mg PO BID [facility] Last Admin: 10/29/17 21:08 Dose: Not Given Hydroxyurea (Hydrea -) 500 mg PO DAILY [facility] Last Admin: 10/29/17 14:08 Dose: 500 mg Dextrose/Sodium Chloride (D5-1/2ns -) 1,000 mls @ 75 mls/hr IV ASDIR [facility] Last Admin: 10/29/17 13:40 Dose: 75 mls/hr Lorazepam (Ativan Injection -) 1 mg IVPUSH Q8H PRN PRN Reason: SEVERE AGITATION / ANXIETY Ondansetron HCl (Zofran Injection) 4 mg IVPUSH Q4H PRN PRN Reason: NAUSEA AND/OR VOMITING Propranolol HCl (Inderal La -) 120 mg PO DAILY [facility] Verapamil HCl (Calan Sr -) 180 mg PO BID [facility] Last Admin: 10/29/17 21:08 Dose: 180 mg assmt # drug reaction ? paranoid / psychotic behavior D/C remeron / zofran / xanax / ranitine # A fib with RVR better control continue to monitor clinically not in CHF on Eliquis # ISMAEL on CKD increasing Cr continue IV fluids -- on evidence of HF some improvement - but patient refused IV fluids discussed with family IV resumed # HLD off # thrombocythemia resume hydroxyurea # depression / anxiety discussed with daughter who provides hx consult with Psych Problem List - Problems (1) Atrial fibrillation Code(s): I48.91 - UNSPECIFIED ATRIAL FIBRILLATION Qualifiers: Atrial fibrillation type: persistent Qualified Code(s): I48.1 - Persistent atrial fibrillation (2) HLD (hyperlipidemia) Code(s): E78.5 - HYPERLIPIDEMIA, UNSPECIFIED (3) Headache Code(s): R51 - HEADACHE Qualifiers: Headache type: unspecified Headache chronicity pattern: episodic headache Intractability: not intractable Qualified Code(s): R51 - Headache (4) Lightheadedness Code(s): R42 - DIZZINESS AND GIDDINESS (5) Thrombocythemia Code(s): D47.3 - ESSENTIAL (HEMORRHAGIC) THROMBOCYTHEMIA
[2017-10-30] MEDS: VERAPAMIL HCL 180 MG E.R. TABLET (FP) PO SCH ×2 (13:00→21:44)
[2017-10-30] MEDS: HYDROXYUREA 500 MG CAPSULE PO SCH (13:00)
[2017-10-30] MEDS: APIXABAN 2.5 MG TABLET PO SCH ×2 (13:00→21:44)
[2017-10-30] MEDS: DOCUSATE SODIUM 100 MG CAPSULE (FP) PO SCH ×2 (14:38→21:44)
[2017-10-30] MEDS: ALPRAZolam 0.25 MG TABLET PO SCH (14:39)
[2017-10-30] MEDS: DEXTROSE 5%-0.45% SALINE 1,000 ML IV SCH (14:39)
[2017-10-30] MEDS: RANITIDINE HCL 150 MG TABLET (FP) PO SCH (14:39)
[2017-10-30] MEDS ORDERED: SODIUM CHLORIDE 250 ML IV ONE (17:30)
--- NOTE | 2017-10-30 19:22 | CON.PSY ---
Psychiatry Consult Chief Complaint: Patient seen with dAUGHTER AND GRAND DAUGHTER, THEY ALL LIVE TO [facility]. tHEY REPORT PATIENT MAY BE DEPRESSED AND ANXIOUS. xANAX AND rEMERON WAS STARTED BUT PATIENT BECAME4 CONFUSED DAYA DEELUSIONAL. FAMily reports poor tolerence to meds in general. Symptoms: reports: Anxiety - Previous Psychiatric Treatment Outpatient: None Inpatient: None - Previous Substance Abuse Treatment Outpatient: None Inpatient: None - Current Medications Current Medications: Active Medications Acetaminophen (Tylenol -) 650 mg PO Q6H PRN PRN Reason: PAIN LEVEL 1-5 Last Admin: 10/28/17 08:56 Dose: 650 mg Apixaban (Eliquis -) 2.5 mg PO BID [facility] Last Admin: 10/30/17 13:00 Dose: 2.5 mg Diltiazem HCl (Cardizem Injection -) 10 mg IVPUSH Q4H PRN PRN Reason: TACHYCARDIA Last Admin: 10/21/17 06:13 Dose: 10 mg Docusate Sodium (Colace -) 100 mg PO BID [facility] Last Admin: 10/30/17 14:38 Dose: Not Given Hydroxyurea (Hydrea -) 500 mg PO DAILY [facility] Last Admin: 10/30/17 13:00 Dose: 500 mg Dextrose/Sodium Chloride (D5-1/2ns -) 1,000 mls @ 75 mls/hr IV ASDIR [facility] Last Admin: 10/30/17 14:39 Dose: 75 mls/hr Lorazepam (Ativan Injection -) 1 mg IVPUSH Q8H PRN PRN Reason: SEVERE AGITATION / ANXIETY Propranolol HCl (Inderal La -) 120 mg PO DAILY [facility] Last Admin: 10/30/17 14:39 Dose: 120 mg Verapamil HCl (Calan Sr -) 180 mg PO BID [facility] Last Admin: 10/30/17 13:00 Dose: 180 mg - Allergies Allergies: Allergies Allergy/AdvReac Type Severity Reaction Status Date / Time KILO Inhibitors Allergy Verified 10/30/17 13:00 promethazine Allergy Verified 10/16/17 18:37 cloreciden Allergy Uncoded 10/16/17 18:37 - Current Living Status Usual Living Arrangement: With Significant Other - Current Mental Status Evaluation Appearance: Well Groomed Attitude: Cooperative - Affect Affect: Constrictive - Mood Mood: Anxious - Speech/Language Expressive: Coherent - Psychomotor Activity Psychomotor Activity: Slowed - Thought Process Thought Process: Circumstantial - Thought Content Hallucinations: Absent Delusions: Absent - Self Perception Self Perception: No Impairment - Cognition Attention: Alert Orientation: Time Memory, Short Term: 2/3 Memory, Remote with Promptin/3 - Concentration Serial Sevens Intact: No Simple Calculations Intact: No - Abstraction Proverb Interpretation: Intact Judgement: Minimally Impaired - Insight Insight: Impaired - Impulse Control Impulse Control: Good Control - Suicidal Ideation Suicidal Ideation: No - Homicidal Ideation Homicidal Ideation: No Assessment/Plan 1) Agree with stopping all standing psych meds. 2) suggest starting BUspar 15mg po bid in TWO days for aNXIETY. nO NEED FOR ssriS AT THIS TIME. 3) USE aTIVAN NEEDED.
[2017-10-31 07:31] LABS: CHLORIDE 107 mmol/L (98-107); POTASSIUM 5.9 mmol/L (3.5-5.1); SODIUM 140 mmol/L (136-145)
[2017-10-31 07:36] LABS: ANION GAP 13 (8-16); BLOOD UREA NITROGEN 41 mg/dL (7-18); CALCIUM 8.5 mg/dL (8.5-10.1); CO2 20 mmol/L (21-32); CREATININE 2.4 mg/dL (0.55-1.02); GLUCOSE,RANDOM 102 mg/dL (74-106)
[2017-10-31] MEDS ORDERED: PT OWN MED DRAWER 7, Y5N ONE (09:35)
[2017-10-31] MEDS: DOCUSATE SODIUM 100 MG CAPSULE (FP) PO SCH ×2 (09:52→22:02)
[2017-10-31] MEDS: HYDROXYUREA 500 MG CAPSULE PO SCH (09:52)
[2017-10-31] MEDS: APIXABAN 2.5 MG TABLET PO SCH ×2 (09:52→22:01)
[2017-10-31] MEDS: VERAPAMIL HCL 180 MG E.R. TABLET (FP) PO SCH ×2 (09:52→22:01)
--- NOTE | 2017-10-31 10:13 | PN ---
Progress Note (short form) - Note Progress Note: s: no cp sob palps dizzy o: Vital Signs Period Temp Pulse Resp BP Sys/Murdock Pulse Ox Last 24 Hr 97.4 F-98.3 F 60-118 16-20 93-129/52-78 98 nad, calm, lying flat jvd flat, neck supple cta bl nl effort irregularly, irregular nl s1, s2 . 2/6 sys murmur at sternal border and apex ND PMI + bs soft nt nd, no hsm ext with no e/c/c aa0x3 no jaundice, diaphoesis Current Medications Generic Name Dose Route Start Last Admin Trade Name Freq PRN Reason Stop Dose Admin Acetaminophen 650 mg 10/17/17 00:10 10/28/17 08:56 Tylenol - PO 650 mg Q6H PRN Administration PAIN LEVEL 1-5 Apixaban 2.5 mg 10/17/17 00:30 10/31/17 09:52 Eliquis - PO 2.5 mg BID [facility] Administration Buspirone HCl 15 mg 11/01/17 22:00 Buspar - PO BID [facility] Diltiazem HCl 10 mg 10/17/17 22:59 10/21/17 06:13 Cardizem Injection - IVPUSH 10 mg Q4H PRN Administration TACHYCARDIA Docusate Sodium 100 mg 10/17/17 10:00 10/31/17 09:52 Colace - PO 100 mg BID [facility] Administration Hydroxyurea 500 mg 10/29/17 14:00 10/31/17 09:52 Hydrea - PO 500 mg DAILY [facility] Administration Dextrose/Sodium Chloride 1,000 mls @ 75 mls/hr 10/29/17 13:30 10/30/17 14:39 D5-1/2ns - IV 75 mls/hr ASDIR [facility] Administration Lorazepam 1 mg 10/30/17 04:01 Ativan Injection - IVPUSH Q8H PRN SEVERE AGITATION / ANXIETY Propranolol HCl 120 mg 10/30/17 10:00 10/31/17 09:52 Inderal La - PO 120 mg DAILY [facility] Administration Verapamil HCl 180 mg 10/26/17 11:15 10/31/17 09:52 Calan Sr - PO 180 mg BID [facility] Administration CBC, BMP 10/30/17 06:25 10/31/17 06:25 ekg: afib, vr 141 bpm rbbb, septal q. inferior twi. ekg #2: similar, vr 100 bpm. tele: afib, hr acceptable echo 10/2017: 1+ lvh, lv sys fn is low normal. grade 2 diastolic dysfunction. rv size/fn. mod lae. mod-sev patsy. mild-mod ar. mod mr. sev tr, mod phtn. chest/abd CTA: no acute aortic pathology. + atherosclerosis. cardiomegaly, small pericardial effusion. refluxed contrast seen in hepatic IVC. Dilated PA (3.5 cm), small bilateral pleural effusions with associated compressive atelectasis vs. infiltrates. 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 thyroid nodule. See emr for further details. A/P 81 yo with pmhx of HTN, HLD, h/o "irregular heart beat" on past notes but hasn' t seen water carter in years, thrombocythemia ( on Hydroxyurea) and recent admit in August for atypical pna who p/w weakness and sob and noted to have new afib with RVR. New afib - HRs rapid here, despite dilt 360 with toprol 100 bid, then changed to toprol 100 bid with verapamil 180 bid. - 10/29 changed to verapamil 180 bid with inderal 80 qd. If cannot achieve good rate control with meds will consider dccv (dr klein d/w pt and son who were in agreement.) - 10/30-: HR mostly controlled, at times 100s in bed. recommend assess HR when pt OOB - cont tele - now on eliquis, no need for asa acute diast CHF, moderate MR, severe TR, mod pHTN: - dilated PA suggesting a degree of chronic pulm HTN here - small bilat effusions on CT chest, with lower lung field interlobular septal thickening ? sec to interstitial edema. Contrast noted to be refluxing into IVC and hepatic vein, suggestive of high right-heart pressure, possibly severe TR. - 10/30: + JVD on exam, feels sob at times in bed (? chf sx, vs transient rapid afib sx) - ? HFpEF (sec to rapid Afib) with acute remodeling and L-->R sided elevation in filling pressures. vs ? chronic pHTN with primarily right-sided HF picture - ISMAEL here, ? cardiorenal syndrome presently - pt wants IV removed--start lasix 40 po daily, trend renal fxn daily - bp's 100s-110s at times, with dizzy sx's ? sec to doses of AVN blockers. will defer nitrates presently for cardiorenal syndrome - rec rpt echo as outpt in office once HR controlled, and consider further w/u of pulm HTN and/or valve dz at that time as appropriate htn - stable HL - stable off meds ISMAEL on CKD: - baseline creat 1.2-1.3 (08/20) - remains with worse renal fxn here, s/p IVF
[2017-10-31] MEDS: DEXTROSE 5%-0.45% SALINE 1,000 ML IV SCH ×2 (15:01→19:15)
--- NOTE | 2017-10-31 18:51 | PN ---
Progress Note (short form) - Note Progress Note: appeas much better today Son at bedside she is back to baseline no paraoind behavior / less anxiety Vital Signs Period Temp Pulse Resp BP Sys/Murdock Pulse Ox Last 24 Hr 97.4 F-98.5 F 60-125 16-18 93-136/52-90 98-98 comfortable / less tired neck supple no JVD hear S1/S2 irregularly irreg -100's lungs clear bilat abd soft non tender ext no edema CBC, BMP 10/30/17 06:25 10/31/17 06:25 Microbiology 10/17/17 00:10 Blood - Peripheral Venous Blood Culture - Final NO GROWTH AFTER 5 DAYS INCUBATION 10/16/17 00:00 Blood - Peripheral Venous Blood Culture - Final NO GROWTH AFTER 5 DAYS INCUBATION Active Medications Acetaminophen (Tylenol -) 650 mg PO Q6H PRN PRN Reason: PAIN LEVEL 1-5 Last Admin: 10/28/17 08:56 Dose: 650 mg Apixaban (Eliquis -) 2.5 mg PO BID [facility] Last Admin: 10/31/17 09:52 Dose: 2.5 mg Buspirone HCl (Buspar -) 15 mg PO BID [facility] Diltiazem HCl (Cardizem Injection -) 10 mg IVPUSH Q4H PRN PRN Reason: TACHYCARDIA Last Admin: 10/21/17 06:13 Dose: 10 mg Docusate Sodium (Colace -) 100 mg PO BID [facility] Last Admin: 10/31/17 09:52 Dose: 100 mg Hydroxyurea (Hydrea -) 500 mg PO DAILY [facility] Last Admin: 10/31/17 09:52 Dose: 500 mg Dextrose/Sodium Chloride (D5-1/2ns -) 1,000 mls @ 75 mls/hr IV ASDIR [facility] Last Admin: 10/31/17 15:01 Dose: Not Given Lorazepam (Ativan Injection -) 1 mg IVPUSH Q8H PRN PRN Reason: SEVERE AGITATION / ANXIETY Propranolol HCl (Inderal La -) 120 mg PO DAILY [facility] Last Admin: 10/31/17 09:52 Dose: 120 mg Verapamil HCl (Calan Sr -) 180 mg PO BID [facility] Last Admin: 10/31/17 09:52 Dose: 180 mg assmt # drug reaction ? paranoid / psychotic behavior D/C remeron / zofran / xanax / ranitine # A fib with RVR better control continue to monitor clinically not in CHF on Eliquis # ISMAEL on CKD increasing Cr continue IV fluids -- on evidence of HF some improvement - but patient refused IV fluids discussed with family IV resumed # HLD off # thrombocythemia resume hydroxyurea # depression / anxiety discussed with daughter who provides hx consult with Psych apprecited Problem List - Problems (1) Atrial fibrillation Code(s): I48.91 - UNSPECIFIED ATRIAL FIBRILLATION Qualifiers: Atrial fibrillation type: persistent Qualified Code(s): I48.1 - Persistent atrial fibrillation (2) HLD (hyperlipidemia) Code(s): E78.5 - HYPERLIPIDEMIA, UNSPECIFIED (3) Headache Code(s): R51 - HEADACHE Qualifiers: Headache type: unspecified Headache chronicity pattern: episodic headache Intractability: not intractable Qualified Code(s): R51 - Headache (4) Lightheadedness Code(s): R42 - DIZZINESS AND GIDDINESS (5) Thrombocythemia Code(s): D47.3 - ESSENTIAL (HEMORRHAGIC) THROMBOCYTHEMIA
[2017-11-01 07:28] LABS: ANION GAP 12 (8-16); BLOOD UREA NITROGEN 43 mg/dL (7-18); CHLORIDE 107 mmol/L (98-107); CO2 19 mmol/L (21-32); GLUCOSE,RANDOM 224 mg/dL (74-106); POTASSIUM 5.7 mmol/L (3.5-5.1); SODIUM 138 mmol/L (136-145)
[2017-11-01] MEDS: VERAPAMIL HCL 180 MG E.R. TABLET (FP) PO SCH ×2 (09:17→22:39)
[2017-11-01] MEDS: DOCUSATE SODIUM 100 MG CAPSULE (FP) PO SCH ×2 (09:17→22:38)
[2017-11-01] MEDS: HYDROXYUREA 500 MG CAPSULE PO SCH (09:17)
[2017-11-01] MEDS: APIXABAN 2.5 MG TABLET PO SCH ×2 (09:17→22:38)
--- NOTE | 2017-11-01 12:30 | PN ---
Progress Note (short form) - Note Progress Note: s: no cp sob palps dizzy o: Vital Signs Period Temp Pulse Resp BP Sys/Murdock Pulse Ox Last 24 Hr 97.7 F-100 F 68-113 20-20 97-116/55-62 97-98 nad, calm, lying flat jvd flat, neck supple cta bl nl effort irregularly, irregular nl s1, s2 . 2/6 sys murmur at sternal border and apex ND PMI + bs soft nt nd, no hsm ext with no e/c/c aa0x3 no jaundice, diaphoesis Current Medications Generic Name Dose Route Start Last Admin Trade Name Freq PRN Reason Stop Dose Admin Acetaminophen 650 mg 10/17/17 00:10 10/28/17 08:56 Tylenol - PO 650 mg Q6H PRN Administration PAIN LEVEL 1-5 Apixaban 2.5 mg 10/17/17 00:30 11/01/17 09:17 Eliquis - PO 2.5 mg BID ANKIT Administration Buspirone HCl 15 mg 11/01/17 22:00 Buspar - PO BID ANKIT Diltiazem HCl 10 mg 10/17/17 22:59 10/21/17 06:13 Cardizem Injection - IVPUSH 10 mg Q4H PRN Administration TACHYCARDIA Docusate Sodium 100 mg 10/17/17 10:00 11/01/17 09:17 Colace - PO 100 mg BID ANKIT Administration Hydroxyurea 500 mg 10/29/17 14:00 11/01/17 09:17 Hydrea - PO 500 mg DAILY ANKIT Administration Dextrose/Sodium Chloride 1,000 mls @ 125 mls/hr 10/31/17 18:53 10/31/17 19:15 D5-1/2ns - IV 125 mls/hr ASDIR ANKIT Administration Lorazepam 1 mg 10/30/17 04:01 10/31/17 23:39 Ativan Injection - IVPUSH 1 mg Q8H PRN Administration SEVERE AGITATION / ANXIETY Propranolol HCl 120 mg 10/30/17 10:00 11/01/17 09:16 Inderal La - PO 120 mg DAILY ANKIT Administration Verapamil HCl 180 mg 10/26/17 11:15 11/01/17 09:17 Calan Sr - PO 180 mg BID ANKIT Administration CBC, BMP 10/30/17 06:25 11/01/17 06:35 ekg: afib, vr 141 bpm rbbb, septal q. inferior twi. ekg #2: similar, vr 100 bpm. tele: afib, hr controlled well echo 10/2017: 1+ lvh, lv sys fn is low normal. grade 2 diastolic dysfunction. rv size/fn. mod lae. mod-sev patsy. mild-mod ar. mod mr. sev tr, mod phtn. chest/abd CTA: no acute aortic pathology. + atherosclerosis. cardiomegaly, small pericardial effusion. refluxed contrast seen in hepatic IVC. Dilated PA (3.5 cm), small bilateral pleural effusions with associated compressive atelectasis vs. infiltrates. 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 thyroid nodule. See emr for further details. 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 New afib - HRs rapid here, despite dilt 360 with toprol 100 bid, then changed to toprol 100 bid with verapamil 180 bid. - 10/29 changed to verapamil 180 bid with inderal 80 qd. If cannot achieve good rate control with meds will consider dccv (dr klein d/w pt and son who were in agreement.) - 10/30-: HR mostly controlled, at times 100s in bed. -11/01: it was discovered by nursing that pt is often spitting out her meds in a tissue, this may explain why her rate has been difficult to manage at times. Today she took her meds and HR is controlled well. - cont tele - now on eliquis, no need for asa acute diast CHF, moderate MR, severe TR, mod pHTN: - dilated PA suggesting a degree of chronic pulm HTN here - small bilat effusions on CT chest, with lower lung field interlobular septal thickening ? sec to interstitial edema. Contrast noted to be refluxing into IVC and hepatic vein, suggestive of high right-heart pressure, possibly severe TR. - 10/30: + JVD on exam, feels sob at times in bed (? chf sx, vs transient rapid afib sx) - ? HFpEF (sec to rapid Afib) with acute remodeling and L-->R sided elevation in filling pressures. vs ? chronic pHTN with primarily right-sided HF picture - ISMAEL here, ? cardiorenal syndrome presently - pt wants IV removed--start lasix 40 po daily, trend renal fxn daily - bp's 100s-110s at times, with dizzy sx's ? sec to doses of AVN blockers. will defer nitrates presently for cardiorenal syndrome - rec rpt echo as outpt in office once HR controlled, and consider further w/u of pulm HTN and/or valve dz at that time as appropriate htn - stable HL - stable off meds ISMAEL on CKD: - baseline creat 1.2-1.3 (08/20) - remains with worse renal fxn here, s/p IVF
--- NOTE | 2017-11-01 18:41 | PN ---
Progress Note (short form) - Note Progress Note: appeas much better today Son at bedside neurologically back to baseline no paraoind behavior / less anxiety several bouts of hypotension Vital Signs Period Temp Pulse Resp BP Sys/Murdock Pulse Ox Last 24 Hr 97.4 F-98.5 F 60-125 16-18 93-136/52-90 98-98 comfortable / less tired neck supple no JVD hear S1/S2 irregularly irreg 2/6 M lungs clear bilat abd soft non tender ext no edema CBC, BMP 10/30/17 06:25 11/01/17 06:35 CBC, BMP 10/30/17 06:25 10/31/17 06:25 Microbiology 10/17/17 00:10 Blood - Peripheral Venous Blood Culture - Final NO GROWTH AFTER 5 DAYS INCUBATION 10/16/17 00:00 Blood - Peripheral Venous Blood Culture - Final NO GROWTH AFTER 5 DAYS INCUBATION Active Medications Acetaminophen (Tylenol -) 650 mg PO Q6H PRN PRN Reason: PAIN LEVEL 1-5 Last Admin: 10/28/17 08:56 Dose: 650 mg Apixaban (Eliquis -) 2.5 mg PO BID [facility] Last Admin: 11/01/17 09:17 Dose: 2.5 mg Buspirone HCl (Buspar -) 15 mg PO BID [facility] Diltiazem HCl (Cardizem Injection -) 10 mg IVPUSH Q4H PRN PRN Reason: TACHYCARDIA Last Admin: 10/21/17 06:13 Dose: 10 mg Docusate Sodium (Colace -) 100 mg PO BID [facility] Last Admin: 11/01/17 09:17 Dose: 100 mg Hydroxyurea (Hydrea -) 500 mg PO DAILY [facility] Last Admin: 11/01/17 09:17 Dose: 500 mg Dextrose/Sodium Chloride (D5-1/2ns -) 1,000 mls @ 125 mls/hr IV ASDIR [facility] Last Admin: 10/31/17 19:15 Dose: 125 mls/hr Lorazepam (Ativan Injection -) 1 mg IVPUSH Q8H PRN PRN Reason: SEVERE AGITATION / ANXIETY Last Admin: 10/31/17 23:39 Dose: 1 mg Propranolol HCl (Inderal La -) 120 mg PO DAILY [facility] Last Admin: 11/01/17 09:16 Dose: 120 mg Verapamil HCl (Calan Sr -) 180 mg PO BID [facility] Last Admin: 11/01/17 09:17 Dose: 180 mg assmt # drug reaction ? paranoid / psychotic behavior D/C remeron / zofran / xanax / ranitine # A fib with RVR better control continue to monitor clinically not in CHF on Eliquis # ISMAEL on CKD increasing Cr 2/2 dehydration and hypotension continue IV fluids -- on evidence of HF had some improvement - but patient refused IV fluids also with bouts of hypotension will continue IV fluids and Nephrology consult IV resumed # HLD off # thrombocythemia resume hydroxyurea # depression / anxiety discussed with daughter who provides hx consult with Psych apprecited case discussed with son ( [employer] ) who is at bedside Problem List - Problems (1) Atrial fibrillation Code(s): I48.91 - UNSPECIFIED ATRIAL FIBRILLATION Qualifiers: Atrial fibrillation type: persistent Qualified Code(s): I48.1 - Persistent atrial fibrillation (2) HLD (hyperlipidemia) Code(s): E78.5 - HYPERLIPIDEMIA, UNSPECIFIED (3) Headache Code(s): R51 - HEADACHE Qualifiers: Headache type: unspecified Headache chronicity pattern: episodic headache Intractability: not intractable Qualified Code(s): R51 - Headache (4) Lightheadedness Code(s): R42 - DIZZINESS AND GIDDINESS (5) Thrombocythemia Code(s): D47.3 - ESSENTIAL (HEMORRHAGIC) THROMBOCYTHEMIA
[2017-11-01] MEDS: DEXTROSE 5%-0.45% SALINE 1,000 ML IV SCH (22:37)
[2017-11-01] MEDS: busPIRone HCL 5 MG TABLET PO SCH (22:37)
[2017-11-01] MEDS: ACETAMINOPHEN 325 MG TABLET (FP) PO PRN (22:38)
[2017-11-01] MEDS ORDERED: PT OWN MED DRAWER 7, Y5N ONE (22:39)
[2017-11-02 06:53] LABS: ANION GAP 11 (8-16); BLOOD UREA NITROGEN 36 mg/dL (7-18); CALCIUM 7.5 mg/dL (8.5-10.1); CHLORIDE 108 mmol/L (98-107); CO2 19 mmol/L (21-32); CREATININE 2.2 mg/dL (0.55-1.02); GLUCOSE,RANDOM 105 mg/dL (74-106); POTASSIUM 5.3 mmol/L (3.5-5.1); SODIUM 138 mmol/L (136-145)
[2017-11-02 07:20] LABS: BASO % 0.2 % (0-2.0); HEMATOCRIT 38.1 % (32.4-45.2); HEMOGLOBIN 12.2 GM/dL (10.7-15.3); LYMPH % 20.2 % (8-40); MCH 23.1 pg (25.7-33.7); MCHC 31.9 g/dl (32.0-36.0); MEAN CELL VOLUME 72.6 fl (80-96); MEAN PLT VOLUME 7.9 fl (7.5-11.1); MONO % 8.7 % (3.8-10.2); NEUT % 70.9 % (42.8-82.8); RBC 5.26 M/mm3 (3.60-5.2); RDW 17.9 % (11.6-15.6); WHITE BLOOD COUNT 20.5 K/mm3 (4.0-10.0)
[2017-11-02 07:33] LABS: PLATELET COUNT 1245 K/MM3 (134-434)
[2017-11-02] MEDS ORDERED: PT OWN MED DRAWER 7, Y5N ONE ×2 (08:58→20:34)
--- NOTE | 2017-11-02 11:13 | PN ---
Progress Note (short form) - Note Progress Note: s: no cp sob palps dizzy o: Vital Signs Period Temp Pulse Resp BP Sys/Murdock Pulse Ox Last 24 Hr 97.4 F-98.0 F 88-114 20-22 102-129/58-77 100 nad, calm, lying flat jvd flat, neck supple cta bl nl effort irregularly, irregular nl s1, s2 . 2/6 sys murmur at sternal border and apex ND PMI + bs soft nt nd, no hsm ext with no e/c/c aa0x3 no jaundice, diaphoesis Current Medications Generic Name Dose Route Start Last Admin Trade Name Freq PRN Reason Stop Dose Admin Acetaminophen 650 mg 10/17/17 00:10 11/01/17 22:38 Tylenol - PO 650 mg Q6H PRN Administration PAIN LEVEL 1-5 Apixaban 2.5 mg 10/17/17 00:30 11/01/17 22:38 Eliquis - PO 2.5 mg BID ANKIT Administration Buspirone HCl 15 mg 11/01/17 22:00 11/01/17 22:37 Buspar - PO 15 mg BID ANKIT Administration Diltiazem HCl 10 mg 10/17/17 22:59 10/21/17 06:13 Cardizem Injection - IVPUSH 10 mg Q4H PRN Administration TACHYCARDIA Docusate Sodium 100 mg 10/17/17 10:00 11/01/17 22:38 Colace - PO 100 mg BID ANKIT Administration Hydroxyurea 500 mg 10/29/17 14:00 11/01/17 09:17 Hydrea - PO 500 mg DAILY ANKIT Administration Dextrose/Sodium Chloride 1,000 mls @ 125 mls/hr 10/31/17 18:53 11/01/17 22:37 D5-1/2ns - IV 125 mls/hr ASDIR ANKIT Administration Propranolol HCl 120 mg 10/30/17 10:00 11/01/17 09:16 Inderal La - PO 120 mg DAILY ANKIT Administration Verapamil HCl 180 mg 10/26/17 11:15 11/01/17 22:39 Calan Sr - PO 180 mg BID ANKIT Administration CBC, BMP 11/02/17 06:05 11/02/17 06:05 ekg: afib, vr 141 bpm rbbb, septal q. inferior twi. ekg #2: similar, vr 100 bpm. tele: afib, hr controlled well echo 10/2017: 1+ lvh, lv sys fn is low normal. grade 2 diastolic dysfunction. rv size/fn. mod lae. mod-sev patsy. mild-mod ar. mod mr. sev tr, mod phtn. chest/abd CTA: no acute aortic pathology. + atherosclerosis. cardiomegaly, small pericardial effusion. refluxed contrast seen in hepatic IVC. Dilated PA (3.5 cm), small bilateral pleural effusions with associated compressive atelectasis vs. infiltrates. 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 thyroid nodule. See emr for further details. A/P 81 yo with pmhx of HTN, HLD, h/o "irregular heart beat" on past notes but hasn' t seen hospice executive director in years, thrombocythemia ( on Hydroxyurea) and recent admit in August for atypical pna who p/w weakness and sob and noted to have new afib with RVR. New afib - HRs rapid here, despite dilt 360 with toprol 100 bid, then changed to toprol 100 bid with verapamil 180 bid. - 10/29 changed to verapamil 180 bid with inderal 80 qd. If cannot achieve good rate control with meds will consider dccv (dr klein d/w pt and son who were in agreement.) - 10/30-: HR mostly controlled, at times 100s in bed. -11/01-11/02: it was discovered by nursing that pt is often spitting out her meds in a tissue, this may explain why her rate has been difficult to manage at times. Today she took her meds and HR is controlled well. - cont tele - now on eliquis, no need for asa acute diast CHF, moderate MR, severe TR, mod pHTN: - dilated PA suggesting a degree of chronic pulm HTN here - small bilat effusions on CT chest, with lower lung field interlobular septal thickening ? sec to interstitial edema. Contrast noted to be refluxing into IVC and hepatic vein, suggestive of high right-heart pressure, possibly severe TR. - 10/30: + JVD on exam, feels sob at times in bed (? chf sx, vs transient rapid afib sx) - ? HFpEF (sec to rapid Afib) with acute remodeling and L-->R sided elevation in filling pressures. vs ? chronic pHTN with primarily right-sided HF picture - ISMAEL here, ? cardiorenal syndrome presently - pt wants IV removed--start lasix 40 po daily, trend renal fxn daily - bp's 100s-110s at times, with dizzy sx's ? sec to doses of AVN blockers. will defer nitrates presently for cardiorenal syndrome - rec rpt echo as outpt in office once HR controlled, and consider further w/u of pulm HTN and/or valve dz at that time as appropriate htn - stable HL - stable off meds ISMAEL on CKD: - baseline creat 1.2-1.3 (08/20) - remains with worse renal fxn here, s/p IVF, some improvement in cr today
[2017-11-02] MEDS: busPIRone HCL 5 MG TABLET PO SCH ×3 (11:30→23:34)
[2017-11-02] MEDS: HYDROXYUREA 500 MG CAPSULE PO SCH (11:31)
[2017-11-02] MEDS: APIXABAN 2.5 MG TABLET PO SCH ×3 (11:31→23:35)
[2017-11-02] MEDS: VERAPAMIL HCL 180 MG E.R. TABLET (FP) PO SCH ×3 (11:33→23:34)
[2017-11-02] MEDS: DOCUSATE SODIUM 100 MG CAPSULE (FP) PO SCH ×2 (11:33→22:13)
--- NOTE | 2017-11-02 11:46 | PN ---
Progress Note (short form) - Note Progress Note: Pt found lying in bed. Nasal O2 in place. NAD. Vital Signs Period Temp Pulse Resp BP Sys/Murdock Pulse Ox Last 24 Hr 97.4 F-98.0 F 88-114 20-22 102-129/58-77 100 HEENT- NL Neck- supple Lungs-CTAB Heart- S1/S2, irregularly irregular Abd- Soft, NT, Pos BS x 4 Ext- Neg LE edema CBC, BMP 11/02/17 06:05 11/02/17 06:05 Active Medications Acetaminophen (Tylenol -) 650 mg PO Q6H PRN PRN Reason: PAIN LEVEL 1-5 Last Admin: 10/28/17 08:56 Dose: 650 mg Apixaban (Eliquis -) 2.5 mg PO BID [facility] Last Admin: 11/01/17 09:17 Dose: 2.5 mg Buspirone HCl (Buspar -) 15 mg PO BID [facility] Diltiazem HCl (Cardizem Injection -) 10 mg IVPUSH Q4H PRN PRN Reason: TACHYCARDIA Last Admin: 10/21/17 06:13 Dose: 10 mg Docusate Sodium (Colace -) 100 mg PO BID [facility] Last Admin: 11/01/17 09:17 Dose: 100 mg Hydroxyurea (Hydrea -) 500 mg PO DAILY [facility] Last Admin: 11/01/17 09:17 Dose: 500 mg Dextrose/Sodium Chloride (D5-1/2ns -) 1,000 mls @ 125 mls/hr IV ASDIR [facility] Last Admin: 10/31/17 19:15 Dose: 125 mls/hr Lorazepam (Ativan Injection -) 1 mg IVPUSH Q8H PRN PRN Reason: SEVERE AGITATION / ANXIETY Last Admin: 10/31/17 23:39 Dose: 1 mg Propranolol HCl (Inderal La -) 120 mg PO DAILY [facility] Last Admin: 11/01/17 09:16 Dose: 120 mg Verapamil HCl (Calan Sr -) 180 mg PO BID [facility] Last Admin: 11/01/17 09:17 Dose: 180 mg assmt # A fib with RVR better control continue Eliquis BID encourage med compliance clinically not in CHF # ISMAEL on CKD decreasing Cr - now 2.2 continue IV fluids -- no evidence of HF will continue IV fluids and Nephrology consult # HLD off # thrombocythemia resume hydroxyurea # depression / anxiety cont Buspar BID Lorazepam IV push q 8 hrs PRN Problem List - Problems (1) Atrial fibrillation Code(s): I48.91 - UNSPECIFIED ATRIAL FIBRILLATION Qualifiers: Atrial fibrillation type: persistent Qualified Code(s): I48.1 - Persistent atrial fibrillation (2) HLD (hyperlipidemia) Code(s): E78.5 - HYPERLIPIDEMIA, UNSPECIFIED (3) Headache Code(s): R51 - HEADACHE Qualifiers: Headache type: unspecified Headache chronicity pattern: episodic headache Intractability: not intractable Qualified Code(s): R51 - Headache (4) Lightheadedness Code(s): R42 - DIZZINESS AND GIDDINESS (5) Thrombocythemia Code(s): D47.3 - ESSENTIAL (HEMORRHAGIC) THROMBOCYTHEMIA
--- NOTE | 2017-11-02 14:22 | PN ---
Mental Health Exam - Mental Status Exam Alert and Oriented to: Time, Place, Person Cognitive Function: Grossly Intact Patient Appearance: Well Groomed Mood: Nervous, Apprehensive Affect: Mood Congruent Patient Behavior: Dependent ("my daughter amelia care for HCP"), Cooperative Speech Pattern: Delayed, Tangential Voice Loudness: Moderately Soft/Quiet, Limited Variation Thought Process: Circumstantial Thought Disorder: Not Present Hallucinations: None Suicidal Ideation: None Homicidal Ideation: None Insight/Judgement: Fair Sleep: Fair Appetite: Fair Muscle strength/Tone: Mild Hypertonicity Gait/Station: Deferred (Follow up with Psych consult complete 10-30-17. She is a 82yo female reside with daughter, Jillian and granddaughter. Client is sitting up has fast breathing, using assessory [id number]. She stated she becomes fearful at times. Health care proxy by bedside unsigned, stated "my daughter will care for that". Stiiting up in bed with hand holdiong her head. Denies SI, HI, AH or VH. denies smoking, social alchol. Hair in neat braid, wearing a heart holter monitor. Client is now taking BUSPAR 15 mg that is helpfu;l with anxiety. Mat also us low dose ativan for very severe anxiety6, may depress breathing.No SSRI due to severe nauseau.) Additional Comments: Impaired insight, Good impulse control. recall 2/3 on short term. Spoke with JLUIS Enrique on duty today. client is alertt in am but becomes more perservative as day goes on. Encourage Reminescence thereay.. Encourage to complete Health Care Proxy. Continue Buspar, may be cheeking meds , throwing up, observe for 10 min after giving with mouth checks.
--- NOTE | 2017-11-02 14:32 | CONSULT ---
Consult Consult Specialty:: Nephrology Reason for Consultation:: ISMAEL - History of Present Illness Chief Complaint: fatigue and nausea History of Present Illness: Pt is an 81 year old female with pmhx of HTN, chol, a-fib and nephrolithiasis who presents to the ER with fatigue and shortness of breath. She was found to have rapid a-fib that was difficult to control as she was not taking her meds. I was called to evaluate her for ISMAEL. She says that she had not had much appetite. She did have a few episodes of vomiting. She denies nsaid use. - History Source History Provided By: Patient, Medical Record - Past Medical History Cardio/Vascular: Yes: HTN, Hyperlipdemia Pulmonary: Yes: Pneumonia (admitted for bilat PNA) Renal/: Yes: Renal Inusuff, Renal Calculi - Alcohol/Substance Use Hx Alcohol Use: Yes - Smoking History Smoking history: Never smoked Have you smoked in the past 12 months: No - Social History Usual Living Arrangement: With Significant Other ADL: Support Services History of Recent Travel: No Home Medications - Allergies Allergies/Adverse Reactions: Allergies Allergy/AdvReac Type Severity Reaction Status Date / Time KILO Inhibitors Allergy Verified 10/30/17 13:00 promethazine Allergy Verified 10/16/17 18:37 cloreciden Allergy Uncoded 10/16/17 18:37 - Home Medications Home Medications: Ambulatory Orders Aspirin Coated [Ecotrin -] 81 mg PO DAILY 12/19/11 Carvedilol [Coreg] 25 mg PO BID 12/19/11 Atorvastatin Ca [Lipitor] 10 mg PO HS 12/27/15 Acetaminophen [Tylenol .Regular Strength -] 650 mg PO Q6HPO tablet 08/19/17 Family Disease History - Family Disease History Family History: Denies Review of Systems - Review of Systems Constitutional: reports: Malaise Eyes: reports: No Symptoms HENT: reports: No Symptoms Neck: reports: No Symptoms Cardiovascular: reports: No Symptoms Respiratory: reports: No Symptoms Gastrointestinal: reports: Nausea, Vomiting Genitourinary: reports: No Symptoms Musculoskeletal: reports: No Symptoms Integumentary: reports: No Symptoms Neurological: reports: No Symptoms Endocrine: reports: No Symptoms Hematology/Lymphatic: reports: No Symptoms Psychiatric: reports: No Symptoms Physical Exam Vital Signs: Vital Signs Temperature 98.3 F 11/02/17 09:00 Pulse Rate 70 11/02/17 09:00 Respiratory Rate 20 11/02/17 09:00 Blood Pressure 122/63 11/02/17 09:00 O2 Sat by Pulse Oximetry (%) 100 11/02/17 09:00 Constitutional: Yes: Calm Eyes: Yes: Conjunctiva Clear HENT: Yes: Atraumatic Cardiovascular: Yes: S1, S2 Respiratory: Yes: CTA Bilaterally Gastrointestinal: Yes: Soft Renal/: Yes: WNL Musculoskeletal: Yes: WNL Extremities: Yes: WNL Edema: No Neurological: Yes: Oriented Psychiatric: Yes: Oriented Labs: CBC, BMP 11/02/17 06:05 11/02/17 06:05 Laboratory Tests 11/30/10 06/28/11 06/21/13 12:10 08:20 10:27 Sodium Creatinine 1.2 1.1 1.0 08/18/17 10/16/17 10/17/17 07:00 19:35 06:15 Sodium Creatinine 1.2 H 1.6 H 1.3 H 10/17/17 10/31/17 11/01/17 13:40 06:25 06:35 Sodium 138 Creatinine 1.4 H 2.4 H 3.0 H 11/02/17 06:05 Sodium 138 Creatinine 2.2 H Imaging - Results Chest X-ray: Report Reviewed Problem List - Problems (1) ISMAEL (acute kidney injury) Code(s): N17.9 - ACUTE KIDNEY FAILURE, UNSPECIFIED (2) Hyperkalemia Code(s): E87.5 - HYPERKALEMIA (3) Atrial fibrillation Code(s): I48.91 - UNSPECIFIED ATRIAL FIBRILLATION Qualifiers: Atrial fibrillation type: persistent Qualified Code(s): I48.1 - Persistent atrial fibrillation (4) HLD (hyperlipidemia) Code(s): E78.5 - HYPERLIPIDEMIA, UNSPECIFIED (5) HTN (hypertension) Code(s): I10 - ESSENTIAL (PRIMARY) HYPERTENSION Assessment/Plan Current Medications Generic Name Dose Route Start Last Admin Trade Name Freq PRN Reason Stop Dose Admin Acetaminophen 650 mg 10/17/17 00:10 11/01/17 22:38 Tylenol - PO 650 mg Q6H PRN Administration PAIN LEVEL 1-5 Apixaban 2.5 mg 10/17/17 00:30 11/02/17 11:31 Eliquis - PO 2.5 mg BID ANKIT Administration Buspirone HCl 15 mg 11/01/17 22:00 11/02/17 11:30 Buspar - PO 15 mg BID ANKIT Administration Diltiazem HCl 10 mg 10/17/17 22:59 10/21/17 06:13 Cardizem Injection - IVPUSH 10 mg Q4H PRN Administration TACHYCARDIA Docusate Sodium 100 mg 10/17/17 10:00 11/02/17 11:33 Colace - PO Not Given BID ANKIT Hydroxyurea 500 mg 10/29/17 14:00 11/02/17 11:31 Hydrea - PO 500 mg DAILY ANKIT Administration Dextrose/Sodium Chloride 1,000 mls @ 125 mls/hr 10/31/17 18:53 11/01/17 22:37 D5-1/2ns - IV 125 mls/hr ASDIR ANKIT Administration Propranolol HCl 120 mg 10/30/17 10:00 11/02/17 11:33 Inderal La - PO 120 mg DAILY ANKIT Administration Verapamil HCl 180 mg 10/26/17 11:15 11/02/17 11:33 Calan Sr - PO 180 mg BID ANKIT Administration Impression 1. ISMAEL 2. hyperkalemia 3. a-fib 4. HTN 5. nephrolithiasis 6. vomiting 7. hyperlipidemia Plan - renal function is improving - potassium is improving - cont with fluids, can decrease rate - repeat labs in am - check ua, lytes and fire prevention captain - check renal ultrasound - low potassium diet - will follow - likely ISMAEL from pre-renal disease Dr Tripp
[2017-11-02] MEDS ORDERED: DEXTROSE 5%-0.45% SALINE 1,000 ML IV SCH (14:37)
[2017-11-02] MEDS ORDERED: ONDANSETRON 4 MG/2 ML VIAL IVPB ONE (21:15)
[2017-11-03] MEDS ORDERED: ONDANSETRON 4 MG/2 ML VIAL IVPUSH ONE (03:30)
[2017-11-03 07:06] LABS: BASO % 0.3 % (0-2.0); HEMATOCRIT 40.6 % (32.4-45.2); HEMOGLOBIN 12.8 GM/dL (10.7-15.3); LYMPH % 11.2 % (8-40); MCH 22.9 pg (25.7-33.7); MCHC 31.5 g/dl (32.0-36.0); MEAN CELL VOLUME 72.6 fl (80-96); MONO % 7.4 % (3.8-10.2); NEUT % 81.1 % (42.8-82.8); RBC 5.59 M/mm3 (3.60-5.2); RDW 17.9 % (11.6-15.6)
[2017-11-03 07:44] LABS: PLATELET COUNT 1388 K/MM3 (134-434)
[2017-11-03 08:10] LABS: CHLORIDE 104 mmol/L (98-107); SODIUM 136 mmol/L (136-145)
[2017-11-03 08:20] LABS: ALK PHOS 120 U/L (45-117); ANION GAP 14 (8-16); BILIRUBIN,TOTAL 0.9 mg/dL (0.2-1.0); BLOOD UREA NITROGEN 35 mg/dL (7-18); CALCIUM 8.5 mg/dL (8.5-10.1); CO2 18 mmol/L (21-32); CREATININE 2.4 mg/dL (0.55-1.02); GLUCOSE,RANDOM 104 mg/dL (74-106); SGOT/AST 75 U/L (15-37); SGPT/ALT 174 U/L (12-78); TOT PROT 5.9 g/dl (6.4-8.2)
[2017-11-03] MEDS ORDERED: PT OWN MED DRAWER 7, Y5N ONE ×2 (09:25→22:53)
[2017-11-03] MEDS: APIXABAN 2.5 MG TABLET PO SCH ×3 (09:30→22:55)
[2017-11-03] MEDS: busPIRone HCL 5 MG TABLET PO SCH ×3 (09:30→22:55)
[2017-11-03] MEDS: HYDROXYUREA 500 MG CAPSULE PO SCH ×3 (09:32→22:55)
[2017-11-03] MEDS: VERAPAMIL HCL 180 MG E.R. TABLET (FP) PO SCH ×3 (09:32→23:43)
[2017-11-03] MEDS ORDERED: SODIUM POLYSTYRENE SULFONATE 15 GM/60 ML BOTTLE PO ONE (09:40)
[2017-11-03] MEDS ORDERED: ONDANSETRON 4 MG/2 ML VIAL ONE (10:19)
[2017-11-03] MEDS: ONDANSETRON 4 MG/2 ML VIAL IVPUSH PRN ×2 (10:38→16:25)
[2017-11-03] MEDS ORDERED: ONDANSETRON 4 MG/2 ML VIAL IVPUSH PRN (10:44)
--- NOTE | 2017-11-03 10:45 | PN ---
Progress Note (short form) - Note Progress Note: s: no cp sob palps dizzy; +n/v o: Vital Signs Period Temp Pulse Resp BP Sys/Murdock Pulse Ox Last 24 Hr 97.0 F-99.2 F 62-106 20-20 115-144/50-86 100 nad, calm, lying flat jvd flat, neck supple cta bl nl effort irregularly, irregular nl s1, s2 . 2/6 sys murmur at sternal border and apex ND PMI + bs soft nt nd, no hsm ext with no e/c/c aa0x3 no jaundice, diaphoesis Current Medications Generic Name Dose Route Start Last Admin Trade Name Freq PRN Reason Stop Dose Admin Acetaminophen 650 mg 10/17/17 00:10 11/01/17 22:38 Tylenol - PO 650 mg Q6H PRN Administration PAIN LEVEL 1-5 Apixaban 2.5 mg 10/17/17 00:30 11/02/17 23:35 Eliquis - PO Not Given BID ANKIT Buspirone HCl 15 mg 11/01/17 22:00 11/02/17 23:34 Buspar - PO Not Given BID ANKIT Diltiazem HCl 10 mg 10/17/17 22:59 10/21/17 06:13 Cardizem Injection - IVPUSH 10 mg Q4H PRN Administration TACHYCARDIA Docusate Sodium 100 mg 10/17/17 10:00 11/02/17 22:13 Colace - PO Not Given BID ANKIT Hydroxyurea 500 mg 10/29/17 14:00 11/02/17 11:31 Hydrea - PO 500 mg DAILY ANKIT Administration Dextrose/Sodium Chloride 1,000 mls @ 100 mls/hr 11/02/17 14:37 11/02/17 20:36 D5-1/2ns - IV 100 mls/hr ASDIR ANKIT Administration Ondansetron HCl 4 mg 11/03/17 10:29 11/03/17 10:38 Zofran Injection IVPUSH 4 mg Q4H PRN Administration NAUSEA AND/OR VOMITING Propranolol HCl 120 mg 10/30/17 10:00 11/02/17 11:33 Inderal La - PO 120 mg DAILY ANKIT Administration Verapamil HCl 180 mg 10/26/17 11:15 11/02/17 23:34 Calan Sr - PO Not Given BID ANKIT CBC, BMP 11/03/17 06:48 11/03/17 06:48 ekg: afib, vr 141 bpm rbbb, septal q. inferior twi. ekg #2: similar, vr 100 bpm. tele: afib, hr controlled echo 10/2017: 1+ lvh, lv sys fn is low normal. grade 2 diastolic dysfunction. rv size/fn. mod lae. mod-sev patsy. mild-mod ar. mod mr. sev tr, mod phtn. chest/abd CTA: no acute aortic pathology. + atherosclerosis. cardiomegaly, small pericardial effusion. refluxed contrast seen in hepatic IVC. Dilated PA (3.5 cm), small bilateral pleural effusions with associated compressive atelectasis vs. infiltrates. 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 thyroid nodule. See emr for further details. A/P 81 yo with pmhx of HTN, HLD, h/o "irregular heart beat" on past notes but hasn' t seen health data analyst in years, thrombocythemia ( on Hydroxyurea) and recent admit in August for atypical pna who p/w weakness and sob and noted to have new afib with RVR. New afib - HRs rapid here, despite dilt 360 with toprol 100 bid, then changed to toprol 100 bid with verapamil 180 bid. - 10/29 changed to verapamil 180 bid with inderal 80 qd. If cannot achieve good rate control with meds will consider dccv (dr klein d/w pt and son who were in agreement.) - 10/30-: HR mostly controlled, at times 100s in bed. -11/01-11/03: it was previously discovered by nursing that pt was often spitting out her meds in a tissue, this may explain why her rate has been difficult to manage at times. Now that she has been taking her meds, her HR is controlled well. - cont tele - now on eliquis, no need for asa acute diast CHF, moderate MR, severe TR, mod pHTN: - dilated PA suggesting a degree of chronic pulm HTN here - small bilat effusions on CT chest, with lower lung field interlobular septal thickening ? sec to interstitial edema. Contrast noted to be refluxing into IVC and hepatic vein, suggestive of high right-heart pressure, possibly severe TR. - 10/30: + JVD on exam, feels sob at times in bed (? chf sx, vs transient rapid afib sx) - ? HFpEF (sec to rapid Afib) with acute remodeling and L-->R sided elevation in filling pressures. vs ? chronic pHTN with primarily right-sided HF picture - ISMAEL here, ? cardiorenal syndrome presently - pt wants IV removed--start lasix 40 po daily, trend renal fxn daily - bp's 100s-110s at times, with dizzy sx's ? sec to doses of AVN blockers. will defer nitrates presently for cardiorenal syndrome - rec rpt echo as outpt in office once HR controlled, and consider further w/u of pulm HTN and/or valve dz at that time as appropriate htn - stable HL - stable off meds ISMAEL on CKD: - baseline creat 1.2-1.3 (08/20) - remains with worse renal fxn here, s/p IVF - poor po intake possibly contributing
--- NOTE | 2017-11-03 10:55 | PN ---
Progress Note (short form) - Note Progress Note: Son at bedside no paraoind behavior / less anxiety c/o nausea with poor intake Vital Signs Period Temp Pulse Resp BP Sys/Murdock Pulse Ox Last 24 Hr 97.0 F-99.2 F 62-106 20-20 115-144/50-86 100 neck supple no JVD hear S1/S2 irregularly irreg 2/6 M lungs clear bilat abd soft non tender ext no edema CBC, [facility] 11/03/17 06:48 11/03/17 06:48 CBC, [facility] 10/30/17 06:25 11/01/17 06:35 CBC, [facility] 10/30/17 06:25 10/31/17 06:25 Microbiology 10/17/17 00:10 Blood - Peripheral Venous Blood Culture - Final NO GROWTH AFTER 5 DAYS INCUBATION 10/16/17 00:00 Blood - Peripheral Venous Blood Culture - Final NO GROWTH AFTER 5 DAYS INCUBATION Active Medications Acetaminophen (Tylenol -) 650 mg PO Q6H PRN PRN Reason: PAIN LEVEL 1-5 Last Admin: 11/01/17 22:38 Dose: 650 mg Apixaban (Eliquis -) 2.5 mg PO BID [facility] Last Admin: 11/02/17 23:35 Dose: Not Given Buspirone HCl (Buspar -) 15 mg PO BID [facility] Last Admin: 11/02/17 23:34 Dose: Not Given Diltiazem HCl (Cardizem Injection -) 10 mg IVPUSH Q4H PRN PRN Reason: TACHYCARDIA Last Admin: 10/21/17 06:13 Dose: 10 mg Docusate Sodium (Colace -) 100 mg PO BID [facility] Last Admin: 11/02/17 22:13 Dose: Not Given Hydroxyurea (Hydrea -) 500 mg PO DAILY [facility] Last Admin: 11/02/17 11:31 Dose: 500 mg Dextrose/Sodium Chloride (D5-1/2ns -) 1,000 mls @ 150 mls/hr IV ASDIR [facility] Ondansetron HCl (Zofran Injection) 4 mg IVPUSH Q4H PRN PRN Reason: NAUSEA AND/OR VOMITING Last Admin: 11/03/17 10:38 Dose: 4 mg Ondansetron HCl (Zofran Injection) 4 mg IVPUSH Q4H PRN PRN Reason: NAUSEA AND/OR VOMITING Propranolol HCl (Inderal La -) 120 mg PO DAILY [facility] Last Admin: 11/02/17 11:33 Dose: 120 mg Verapamil HCl (Calan Sr -) 180 mg PO BID [facility] Last Admin: 11/02/17 23:34 Dose: Not Given assmt # Hyperkalemia pte with CKD no additional K in diet/ or supplement Kayexalate and repeat BMP at 3 pm # A fib with RVR better control continue to monitor clinically not in CHF on Eliquis # ISMAEL on CKD increasing Cr 2/2 dehydration and hypotension continue IV fluids inc to 150/hr-- on evidence of HF had some improvement - now inc again with hypokalemia discussed with Nephro # HLD off # thrombocythemia heme/onc ( out pt oncology Dr Hale) on hydroxyurea # depression / anxiety discussed with daughter who provides hx consult with Psych apprecited seems better on buspar -- but nausea could be side effect of med case discussed with son ( CUSTOMER BUSINESS MANAGER ) who is at bedside Problem List - Problems (1) Atrial fibrillation Code(s): I48.91 - UNSPECIFIED ATRIAL FIBRILLATION Qualifiers: Atrial fibrillation type: persistent Qualified Code(s): I48.1 - Persistent atrial fibrillation (2) HLD (hyperlipidemia) Code(s): E78.5 - HYPERLIPIDEMIA, UNSPECIFIED (3) Headache Code(s): R51 - HEADACHE Qualifiers: Headache type: unspecified Headache chronicity pattern: episodic headache Intractability: not intractable Qualified Code(s): R51 - Headache (4) Lightheadedness Code(s): R42 - DIZZINESS AND GIDDINESS (5) Thrombocythemia Code(s): D47.3 - ESSENTIAL (HEMORRHAGIC) THROMBOCYTHEMIA
[2017-11-03] MEDS: DEXTROSE 5%-0.45% SALINE 1,000 ML IV SCH (12:13)
--- NOTE | 2017-11-03 16:48 | PN ---
Progress Note, Physician History of Present Illness: Pt seen and examined at bedside. She is not taking all of her meds. - Current Medication List Current Medications: Active Medications Acetaminophen (Tylenol -) 650 mg PO Q6H PRN PRN Reason: PAIN LEVEL 1-5 Last Admin: 11/01/17 22:38 Dose: 650 mg Apixaban (Eliquis -) 2.5 mg PO BID [facility] Last Admin: 11/03/17 16:25 Dose: 2.5 mg Buspirone HCl (Buspar -) 15 mg PO BID [facility] Last Admin: 11/02/17 23:34 Dose: Not Given Diltiazem HCl (Cardizem Injection -) 10 mg IVPUSH Q4H PRN PRN Reason: TACHYCARDIA Last Admin: 10/21/17 06:13 Dose: 10 mg Docusate Sodium (Colace -) 100 mg PO BID [facility] Last Admin: 11/02/17 22:13 Dose: Not Given Hydroxyurea (Hydrea -) 500 mg PO BID@0600,1800 [facility] Dextrose/Sodium Chloride (D5-1/2ns -) 1,000 mls @ 150 mls/hr IV ASDIR [facility] Last Admin: 11/03/17 12:13 Dose: 150 mls/hr Ondansetron HCl (Zofran Injection) 4 mg IVPUSH Q4H PRN PRN Reason: NAUSEA AND/OR VOMITING Last Admin: 11/03/17 10:38 Dose: 4 mg Ondansetron HCl (Zofran Injection) 4 mg IVPUSH Q4H PRN PRN Reason: NAUSEA AND/OR VOMITING Propranolol HCl (Inderal La -) 120 mg PO DAILY [facility] Last Admin: 11/02/17 11:33 Dose: 120 mg Verapamil HCl (Calan Sr -) 180 mg PO BID [facility] Last Admin: 11/03/17 16:27 Dose: 180 mg - Objective Vital Signs: Vital Signs Temperature 99.6 F 11/03/17 13:47 Pulse Rate 114 H 11/03/17 13:47 Respiratory Rate 20 11/03/17 13:47 Blood Pressure 149/87 11/03/17 13:47 O2 Sat by Pulse Oximetry (%) 97 11/03/17 09:00 Constitutional: Yes: Calm Eyes: Yes: Conjunctiva Clear HENT: Yes: Atraumatic Cardiovascular: Yes: S1, S2 Respiratory: Yes: CTA Bilaterally Gastrointestinal: Yes: Soft Genitourinary: Yes: WNL Musculoskeletal: Yes: WNL Edema: No Neurological: Yes: Oriented Psychiatric: Yes: Oriented Labs: CBC, BMP 11/03/17 06:48 11/03/17 06:48 INR, PTT INR 1.32 (0.82-1.09) H 10/16/17 19:35 Problem List - Problems (1) ISMAEL (acute kidney injury) Code(s): N17.9 - ACUTE KIDNEY FAILURE, UNSPECIFIED (2) Hyperkalemia Code(s): E87.5 - HYPERKALEMIA (3) Atrial fibrillation Code(s): I48.91 - UNSPECIFIED ATRIAL FIBRILLATION Qualifiers: Atrial fibrillation type: persistent Qualified Code(s): I48.1 - Persistent atrial fibrillation (4) HLD (hyperlipidemia) Code(s): E78.5 - HYPERLIPIDEMIA, UNSPECIFIED (5) HTN (hypertension) Code(s): I10 - ESSENTIAL (PRIMARY) HYPERTENSION Assessment/Plan Current Medications Generic Name Dose Route Start Last Admin Trade Name Freq PRN Reason Stop Dose Admin Acetaminophen 650 mg 10/17/17 00:10 11/01/17 22:38 Tylenol - PO 650 mg Q6H PRN Administration PAIN LEVEL 1-5 Apixaban 2.5 mg 10/17/17 00:30 11/03/17 16:25 Eliquis - PO 2.5 mg BID ANKIT Administration Buspirone HCl 15 mg 11/01/17 22:00 11/02/17 23:34 Buspar - PO Not Given BID ANKIT Diltiazem HCl 10 mg 10/17/17 22:59 10/21/17 06:13 Cardizem Injection - IVPUSH 10 mg Q4H PRN Administration TACHYCARDIA Docusate Sodium 100 mg 10/17/17 10:00 11/02/17 22:13 Colace - PO Not Given BID ANKIT Hydroxyurea 500 mg 11/03/17 18:00 Hydrea - PO BID@0600,1800 ANKIT Dextrose/Sodium Chloride 1,000 mls @ 150 mls/hr 11/03/17 10:47 11/03/17 12:13 D5-1/2ns - IV 150 mls/hr ASDIR ANKIT Administration Ondansetron HCl 4 mg 11/03/17 10:29 11/03/17 10:38 Zofran Injection IVPUSH 4 mg Q4H PRN Administration NAUSEA AND/OR VOMITING Ondansetron HCl 4 mg 11/03/17 10:44 Zofran Injection IVPUSH Q4H PRN NAUSEA AND/OR VOMITING Propranolol HCl 120 mg 10/30/17 10:00 11/02/17 11:33 Inderal La - PO 120 mg DAILY ANKIT Administration Verapamil HCl 180 mg 10/26/17 11:15 11/03/17 16:27 Calan Sr - PO 180 mg BID ANKIT Administration Impression 1. ISMAEL 2. hyperkalemia 3. a-fib 4. HTN 5. nephrolithiasis 6. vomiting 7. hyperlipidemia Plan - cont with fluids - potassium treated medically this morning however pt did not take the kayexylate - repeat labs - discussed case with her son - reviewed renal ultrasound - urine studies not done, please follow - low potassium diet - will follow - likely ISMAEL from pre-renal disease Dr Tripp
[2017-11-03 18:27] LABS: ANION GAP 11 (8-16); BLOOD UREA NITROGEN 32 mg/dL (7-18); CALCIUM 8.5 mg/dL (8.5-10.1); CHLORIDE 110 mmol/L (98-107); CO2 20 mmol/L (21-32); CREATININE 2.2 mg/dL (0.55-1.02); GLUCOSE,RANDOM 93 mg/dL (74-106); POTASSIUM 5.5 mmol/L (3.5-5.1); SODIUM 141 mmol/L (136-145)
[2017-11-03] MEDS: DOCUSATE SODIUM 100 MG CAPSULE (FP) PO SCH ×2 (19:22→22:59)
[2017-11-03 21:10] LABS: ANION GAP 9 (8-16); BLOOD UREA NITROGEN 30 mg/dL (7-18); CALCIUM 8.4 mg/dL (8.5-10.1); CHLORIDE 110 mmol/L (98-107); CO2 21 mmol/L (21-32); CREATININE 2.2 mg/dL (0.55-1.02); GLUCOSE,RANDOM 96 mg/dL (74-106); POTASSIUM 5.5 mmol/L (3.5-5.1); SODIUM 140 mmol/L (136-145)
--- NOTE | 2017-11-03 21:28 | CONSULT ---
Consult - text type - Consultation Consultation Note: Pt is an 81 year old female with pmhx of HTN, chol, a-fib and nephrolithiasis who presented to the ER with fatigue and shortness of breath. She was found to have rapid a-fib that was difficult to control as she was not taking her meds. Also noted to have ISMAEL we have been consulted regarding h/o thrombocytosis. patient is being followed by Dr. Araujo and was diagnosed with thrombocytosis and has been on hydrea for the last 4 yrs. - History Source History Provided By: Patient, Medical Record - Past Medical History Cardio/Vascular: Yes: HTN, Hyperlipdemia Pulmonary: Yes: Pneumonia (admitted for bilat PNA) Renal/: Yes: Renal Inusuff, Renal Calculi - Alcohol/Substance Use Hx Alcohol Use: Yes - Smoking History Smoking history: Never smoked - Social History Usual Living Arrangement: With Significant Other ADL: Support Services - Allergies Allergies/Adverse Reactions: Allergies Allergy/AdvReac Type Severity Reaction Status Date / Time KILO Inhibitors Allergy Verified 10/30/17 13:00 promethazine Allergy Verified 10/16/17 18:37 cloreciden Allergy Uncoded 10/16/17 18:37 - Home Medications Home Medications: Ambulatory Orders Aspirin Coated [Ecotrin -] 81 mg PO DAILY 12/19/11 Carvedilol [Coreg] 25 mg PO BID 12/19/11 Atorvastatin Ca [Lipitor] 10 mg PO HS 12/27/15 Acetaminophen [Tylenol .Regular Strength -] 650 mg PO Q6HPO tablet 08/19/17 Physical Exam Vital Signs: Last Vital Signs Temp Pulse Resp BP Pulse Ox 98.6 F 68 20 92/41 96 11/04/17 02:00 11/04/17 02:00 11/04/17 02:00 11/04/17 02:00 11/03/17 21:00 Constitutional: Yes: Calm Eyes: Yes: Conjunctiva Clear HENT: Yes: Atraumatic Cardiovascular: Yes: S1, S2 Respiratory: Yes: CTA Bilaterally Gastrointestinal: Yes: Soft Renal/: Yes: WNL Musculoskeletal: Yes: WNL Extremities: Yes: WNL Labs: Abnormal Lab Results 11/03/17 11/03/17 11/03/17 06:48 06:48 17:10 WBC 21.0 H RBC 5.59 H MCV 72.6 L MCH 22.9 L MCHC 31.5 L RDW 17.9 H Plt Count 1388 H Potassium 6.0 H 5.5 H Chloride 110 H Carbon Dioxide 18 L 20 L BUN 35 H 32 H Creatinine 2.4 H 2.2 H Calcium AST 75 H ALT 174 H Alkaline Phosphatase 120 H Total Protein 5.9 L Albumin 3.0 L 11/03/17 20:00 WBC RBC MCV MCH MCHC RDW Plt Count Potassium 5.5 H Chloride 110 H Carbon Dioxide BUN 30 H Creatinine 2.2 H Calcium 8.4 L AST ALT Alkaline Phosphatase Total Protein Albumin Problem List - Problems (1) ISMAEL (acute kidney injury) Code(s): N17.9 - ACUTE KIDNEY FAILURE, UNSPECIFIED (2) Hyperkalemia Code(s): E87.5 - HYPERKALEMIA (3) Atrial fibrillation Code(s): I48.91 - UNSPECIFIED ATRIAL FIBRILLATION Qualifiers: Atrial fibrillation type: persistent Qualified Code(s): I48.1 - Persistent atrial fibrillation (4) HLD (hyperlipidemia) Code(s): E78.5 - HYPERLIPIDEMIA, UNSPECIFIED (5) HTN (hypertension) Code(s): I10 - ESSENTIAL (PRIMARY) HYPERTENSION Assessment/Plan Current Medications Generic Name Dose Route Start Last Admin Trade Name Freq PRN Reason Stop Dose Admin Acetaminophen 650 mg 10/17/17 00:10 11/01/17 22:38 Tylenol - PO 650 mg Q6H PRN Administration PAIN LEVEL 1-5 Apixaban 2.5 mg 10/17/17 00:30 11/02/17 11:31 Eliquis - PO 2.5 mg BID ANKIT Administration Buspirone HCl 15 mg 11/01/17 22:00 11/02/17 11:30 Buspar - PO 15 mg BID ANKIT Administration Diltiazem HCl 10 mg 10/17/17 22:59 10/21/17 06:13 Cardizem Injection - IVPUSH 10 mg Q4H PRN Administration TACHYCARDIA Docusate Sodium 100 mg 10/17/17 10:00 11/02/17 11:33 Colace - PO Not Given BID ANKIT Hydroxyurea 500 mg 10/29/17 14:00 11/02/17 11:31 Hydrea - PO 500 mg DAILY ANKIT Administration Dextrose/Sodium Chloride 1,000 mls @ 125 mls/hr 10/31/17 18:53 11/01/17 22:37 D5-1/2ns - IV 125 mls/hr ASDIR ANKIT Administration Propranolol HCl 120 mg 10/30/17 10:00 11/02/17 11:33 Inderal La - PO 120 mg DAILY ANKIT Administration Verapamil HCl 180 mg 10/26/17 11:15 11/02/17 11:33 Calan Sr - PO 180 mg BID ANKIT Administration Impression 82 y/o patient with HTN, anxiety, essential thrombocytosis, comes in with worsening SOB/new afib/ISMAEL Clinical scenario suspicious for diastolic CHF, new afib Thrombocytosis -- diagnosed 3-4 yrs[address] ago followed by dr. araujo has been on hydrea will increase to 500mg bid check VWF panel No signs/symptoms of thrmbosis/bleeding was started on eliquis 2.5mg bid for afib. will discuss with cardiology regarding adding aspirin 81 mg daily
[2017-11-04] MEDS: HYDROXYUREA 500 MG CAPSULE PO SCH (06:44)
[2017-11-04 07:09] LABS: BASO % 0.2 % (0-2.0); HEMATOCRIT 37.4 % (32.4-45.2); HEMOGLOBIN 12.1 GM/dL (10.7-15.3); LYMPH % 17.9 % (8-40); MCH 23.3 pg (25.7-33.7); MCHC 32.5 g/dl (32.0-36.0); MEAN CELL VOLUME 71.8 fl (80-96); MEAN PLT VOLUME 7.6 fl (7.5-11.1); MONO % 8.3 % (3.8-10.2); NEUT % 73.6 % (42.8-82.8); RDW 17.9 % (11.6-15.6)
[2017-11-04 07:18] LABS: PLATELET COUNT 1330 K/MM3 (134-434)
[2017-11-04 07:37] LABS: ALBUMIN 2.8 g/dl (3.4-5.0); ALK PHOS 109 U/L (45-117); ANION GAP 13 (8-16); BILIRUBIN,TOTAL 0.8 mg/dL (0.2-1.0); BLOOD UREA NITROGEN 28 mg/dL (7-18); CALCIUM 8.4 mg/dL (8.5-10.1); CHLORIDE 110 mmol/L (98-107); CO2 20 mmol/L (21-32); CREATININE 1.9 mg/dL (0.55-1.02); GLUCOSE,RANDOM 69 mg/dL (74-106); POTASSIUM 5.2 mmol/L (3.5-5.1); SGOT/AST 41 U/L (15-37); SGPT/ALT 120 U/L (12-78); SODIUM 143 mmol/L (136-145); TOT PROT 5.3 g/dl (6.4-8.2)
--- NOTE | 2017-11-04 08:54 | PN ---
Progress Note, Physician Chief Complaint: afib History of Present Illness: denies palpitations, sob, leg swelling, cp today no cigs - Current Medication List Current Medications: Active Medications Acetaminophen (Tylenol -) 650 mg PO Q6H PRN PRN Reason: PAIN LEVEL 1-5 Last Admin: 11/01/17 22:38 Dose: 650 mg Apixaban (Eliquis -) 2.5 mg PO BID [facility] Last Admin: 11/03/17 22:55 Dose: 2.5 mg Buspirone HCl (Buspar -) 15 mg PO BID [facility] Last Admin: 11/03/17 22:55 Dose: 15 mg Diltiazem HCl (Cardizem Injection -) 10 mg IVPUSH Q4H PRN PRN Reason: TACHYCARDIA Last Admin: 10/21/17 06:13 Dose: 10 mg Docusate Sodium (Colace -) 100 mg PO BID [facility] Last Admin: 11/03/17 22:59 Dose: Not Given Hydroxyurea (Hydrea -) 500 mg PO BID@0600,1800 [facility] Last Admin: 11/04/17 06:44 Dose: 500 mg Dextrose/Sodium Chloride (D5-1/2ns -) 1,000 mls @ 150 mls/hr IV ASDIR [facility] Last Admin: 11/03/17 12:13 Dose: 150 mls/hr Ondansetron HCl (Zofran Injection) 4 mg IVPUSH Q4H PRN PRN Reason: NAUSEA AND/OR VOMITING Last Admin: 11/03/17 10:38 Dose: 4 mg Ondansetron HCl (Zofran Injection) 4 mg IVPUSH Q4H PRN PRN Reason: NAUSEA AND/OR VOMITING Propranolol HCl (Inderal La -) 120 mg PO DAILY [facility] Last Admin: 11/03/17 19:29 Dose: 120 mg Verapamil HCl (Calan Sr -) 180 mg PO BID [facility] Last Admin: 11/03/17 23:43 Dose: 180 mg - Objective Vital Signs: Vital Signs Temperature 98.2 F 11/04/17 06:00 Pulse Rate 95 H 11/04/17 06:00 Respiratory Rate 20 11/04/17 06:00 Blood Pressure 125/77 11/04/17 06:00 O2 Sat by Pulse Oximetry (%) 96 11/03/17 21:00 Constitutional: Yes: No Distress, Calm Eyes: No: Sclera Icterus HENT: No: Nasal Congestion Cardiovascular: Yes: Pulse Irregular, S1, S2, Other (PMI non diplaced). No: Gallop, Murmur Respiratory: Yes: CTA Bilaterally. No: Accessory Muscle Use, Rales, Wheezes Gastrointestinal: Yes: Normal Bowel Sounds, Soft. No: Tenderness Musculoskeletal: Yes: Other (No kyphosis) Extremities: No: Cold Edema: No Integumentary: No: Jaundice Neurological: Yes: Alert, Oriented (x3) Psychiatric: No: Agitated Labs: CBC, BMP 11/04/17 06:50 11/04/17 06:50 INR, PTT INR 1.32 (0.82-1.09) H 10/16/17 19:35 - ....Imaging EKG: Other (tele: afib 50s-110s) Assessment/Plan ekg: afib, vr 141 bpm rbbb, septal q. inferior twi. ekg #2: similar, vr 100 bpm. tele: afib, hr controlled echo 10/2017: 1+ lvh, lv sys fn is low normal. grade 2 diastolic dysfunction. rv size/fn. mod lae. mod-sev patsy. mild-mod ar. mod mr. sev tr, mod phtn. chest/abd CTA: no acute aortic pathology. + atherosclerosis. cardiomegaly, small pericardial effusion. refluxed contrast seen in hepatic IVC. Dilated PA (3.5 cm), small bilateral pleural effusions with associated compressive atelectasis vs. infiltrates. 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 thyroid nodule. See emr for further details. A/P 81 yo with pmhx of HTN, HLD, h/o "irregular heart beat" on past notes but hasn' t seen public policy manager in years, thrombocythemia ( on Hydroxyurea) and recent admit in August for atypical pna who p/w weakness and sob and noted to have new afib with RVR. afib - no known prior dx of afib, however pt medical followup has been fairly scarce - HRs initially rapid, despite toprol 100 bid with verapamil 180 bid--likely in part due to pt paranoid ideology and was spitting out pills unbeknownst to nursing staff at that time - 10/29 changed to verapamil 180 bid with inderal 80 qd. - HRs have remained much better controlled. psych decompensation may be contributing to tachy as well (paranoia, anxiety) - now on eliquis, no need for asa acute diast CHF, moderate MR, severe TR, mod pHTN: - dilated PA suggesting a degree of chronic pulm HTN here - small bilat effusions on CT chest, with lower lung field interlobular septal thickening ? sec to interstitial edema. Contrast noted to be refluxing into IVC and hepatic vein, suggestive of high right-heart pressure, possibly severe TR. - 10/30: + JVD on exam, feels sob at times in bed (? chf sx, vs transient rapid afib sx) - echo images reviewed by dr mo: there is clearly very severe TR (jet fills entire RA, IVC dilated). the TR is secondary to TV annular dilation with incomplete coaptation of leaflet tips--suspect may be due to prolonged afib for longer time than pt has been aware (seems afib is asymptomatic to her, ? when last time saw a dr) - (mitral annular TDI measurements are suboptimal on the echo, cannot estimate left atrial pressure) - receiving IVF for marked prerenal ISMAEL--no signs of decompensated chf - will tolerate JVD in light of severe TR--observe for sob, ascites, LE edema - no intervention is indicated for this type of TR. could consider trial of rhythm control strategy, but this pt is a poor candidate for this given risks of med non-compliance (i.e. with AC) during the interval shortly after cardioversion (with resulting CVA risk) htn - well controlled - at times sbp 90s, seems to be tolerating this ok. doubt these sporadic drops are causing renal hypoperfusion (diast BPs almost all >50-55) ISMAEL on CKD: - baseline creat 1.2-1.3 (08/20) - worsened renal fxn here sec to poor po intake, pt refusal of IVF (paranoid ideology), in setting of severe right-sided valve lesion (TR) - renal fxn steadily improving with IVF, cont same - renal following D/C TELEMETRY
[2017-11-04] MEDS ORDERED: PT OWN MED DRAWER 7, Y5N ONE ×2 (09:01→09:31)
[2017-11-04] MEDS: VERAPAMIL HCL 180 MG E.R. TABLET (FP) PO SCH (10:39)
[2017-11-04] MEDS: busPIRone HCL 5 MG TABLET PO SCH (10:39)
[2017-11-04] MEDS: APIXABAN 2.5 MG TABLET PO SCH (10:40)
[2017-11-04] MEDS: DOCUSATE SODIUM 100 MG CAPSULE (FP) PO SCH (10:40)
[2017-11-04] MEDS: DEXTROSE 5%-0.45% SALINE 1,000 ML IV SCH (10:40)
--- NOTE | 2017-11-04 12:08 | PN ---
Progress Note (short form) - Note Progress Note: Seen in follow up. Feeling well, no new complaints. Daughter at bedside, collaborating history. Meds reviewed. Current Medications Generic Name Dose Route Start Last Admin Trade Name Freq PRN Reason Stop Dose Admin Acetaminophen 650 mg 10/17/17 00:10 11/01/17 22:38 Tylenol - PO 650 mg Q6H PRN Administration PAIN LEVEL 1-5 Apixaban 2.5 mg 10/17/17 00:30 11/04/17 10:40 Eliquis - PO 2.5 mg BID ANKIT Administration Buspirone HCl 15 mg 11/01/17 22:00 11/04/17 10:39 Buspar - PO 15 mg BID ANKIT Administration Diltiazem HCl 10 mg 10/17/17 22:59 10/21/17 06:13 Cardizem Injection - IVPUSH 10 mg Q4H PRN Administration TACHYCARDIA Docusate Sodium 100 mg 10/17/17 10:00 11/04/17 10:40 Colace - PO Not Given BID ANKIT Hydroxyurea 500 mg 11/03/17 18:00 11/04/17 06:44 Hydrea - PO 500 mg BID@0600,1800 ANKIT Administration Dextrose/Sodium Chloride 1,000 mls @ 150 mls/hr 11/03/17 10:47 11/04/17 10:40 D5-1/2ns - IV Not Given ASDIR ANKIT Ondansetron HCl 4 mg 11/03/17 10:29 11/03/17 10:38 Zofran Injection IVPUSH 4 mg Q4H PRN Administration NAUSEA AND/OR VOMITING Ondansetron HCl 4 mg 11/03/17 10:44 Zofran Injection IVPUSH Q4H PRN NAUSEA AND/OR VOMITING Propranolol HCl 120 mg 10/30/17 10:00 11/04/17 10:40 Inderal La - PO 120 mg DAILY ANKIT Administration Verapamil HCl 180 mg 10/26/17 11:15 11/04/17 10:39 Calan Sr - PO Not Given BID ANKIT On exam: Last Vital Signs Temp Pulse Resp BP Pulse Ox 98.2 F 95 H 20 125/77 96 11/04/17 06:00 11/04/17 06:00 11/04/17 06:00 11/04/17 06:00 11/03/17 21:00 General: Ambulant, well looking. Extremities: No edema Chest:good AE bilaterally, clear Abdomen: Soft, no organomegaly, no masses. Neuro: Alert, non-focal. CVS:S1, S2, no gallop or murmur, rapid and irregular. CBC, BMP 11/04/17 06:50 11/04/17 06:50 Assessment. Patient with known myeloproliferative neoplasm - ET/PV, lost to follow up (saw Dr Hale last in 2015), and off hydroxurea, admitted now with rapid AF. Started on Eliquis for AF. ASA can be held. HU reinitiated at dose of 500 mgs BID - daughter believes this was the dose she was taking before. Would not expect significant effect on counts during admission, will need to be closely monitored over next several weeks as outpatient. Caution re possibility of iatrogenic neutropenia. Hb within normal range, with significant microcytosis, likely attributable to iron deficiency (desired). Check baseline ferritin. Avoid iron supplementation.
[2017-11-04 12:19] LABS: URINE APPEARANCE CLEAR; URINE BILIRUBIN NEGATIVE (NEGATIVE); URINE BLOOD 1+ (NEGATIVE); URINE COLOR LTYELLOW; URINE GLUCOSE (UA) NEGATIVE (NEGATIVE); URINE KETONE NEGATIVE (NEGATIVE); URINE LEUK ESTERASE TRACE (NEGATIVE); URINE NITRITE NEGATIVE (NEGATIVE); URINE PROTEIN NEGATIVE (NEGATIVE); URINE UROBILINOGEN NEGATIVE mg/dL (0.2-1.0)
[2017-11-04 12:36] LABS: EPI CELLS RARE /HPF (FEW); URINE BACTERIA RARE /hpf (NONE SEEN); URINE MUCUS RARE
[2017-11-04 13:18] VITALS: BP 147/81; PULSE 108; TEMP 98.6
--- NOTE | 2017-11-04 13:25 | DS ---
Physical Examination Vital Signs: Vital Signs Temperature 98.6 F 11/04/17 10:00 Pulse Rate 108 H 11/04/17 10:00 Respiratory Rate 20 11/04/17 10:00 Blood Pressure 147/81 11/04/17 10:00 O2 Sat by Pulse Oximetry (%) 96 11/04/17 09:00 Constitutional: Yes: Well Nourished, No Distress, Calm Eyes: Yes: WNL HENT: Yes: WNL Neck: Yes: WNL Cardiovascular: Yes: Pulse Irregular, Murmur, Other (tricuspid reg) Respiratory: Yes: Regular, CTA Bilaterally Gastrointestinal: Yes: WNL, Normal Bowel Sounds ...Rectal Exam: Yes: WNL Renal/: Yes: WNL Breast(s): Yes: WNL Musculoskeletal: Yes: WNL Extremities: Yes: WNL Edema: No Peripheral Pulses WNL: Yes Integumentary: Yes: WNL Neurological: Yes: Alert, Oriented ...Motor Strength: WNL Psychiatric: Yes: Alert, Oriented Labs: CBC, BMP 11/04/17 06:50 11/04/17 06:50 Discharge Summary Reason For Visit: ATRIAL FIBRILLATION Current Active Problems ISMAEL (acute kidney injury) (Acute) Atrial fibrillation (Acute) Hyperkalemia (Acute) Hospital Course: Pt is an 81 year old female with pmhx of HTN, chol, polycythemia and nephrolithiasis who presented to the ER with fatigue and shortness of breath. She was found to have rapid a-fib ( no previous dx-- ). She was started on Eliquis on admission ( well tolerated and no change in h/h) she was admitted to telemetry / cardiology w/u per Dr Herrera's group, difficult to control rate during stay. Hospitalization complicated by acute behavior changes in response to Benzodiazepine and remeron -both discontinued. Patient became paranoid and refused tx / IV / PO intake resulting in ISMAEL from baseline CKD. Psychiatry consulted and meds adjusted -- now more controlled and tolerating meds better. Renal function returned to baseline with hydration and improved PO intake. Plan of care and hospital course discussed with family on a daily bases. Condition: Stable - Instructions Referrals: Rajni Roca MD [Primary Care Provider] - Disposition: HOME - Home Medications Comprehensive Discharge Medication List: Ambulatory Orders Aspirin Coated [Ecotrin -] 81 mg PO DAILY 12/19/11 Acetaminophen [Tylenol .Regular Strength -] 650 mg PO Q6HPO tablet 08/19/17 Acetaminophen [Tylenol .Regular Strength -] 650 mg PO Q6H PRN tablet 11/04/17 Apixaban [Eliquis -] 2.5 mg PO BID tablet 11/04/17 Buspirone HCl [Buspar -] 15 mg PO BID #60 tablet 11/04/17 Docusate Sodium [Colace -] 100 mg PO BID capsule 11/04/17 Hydroxyurea [Hydrea 500Mg Capsule -] 500 mg PO BID@0600,1800 #60 capsule Verapamil HCl ER [Calan Sr -] 180 mg PO BID #30 tablet.er 11/04/17 propRANOLol HCL [Inderal LA -] 120 mg PO DAILY #30 capsule.er 11/04/17
--- NOTE | 2017-11-04 14:52 | PN ---
Progress Note (short form) - Note Progress Note: covering dr johnson Problems 1. ISMAEL 2. hyperkalemia 3. a-fib 4. HTN 5. nephrolithiasis 6. vomiting 7. hyperlipidemia Current Medications Acetaminophen (Tylenol -) 650 mg PO Q6H PRN PRN Reason: PAIN LEVEL 1-5 Last Admin: 11/01/17 22:38 Dose: 650 mg Apixaban (Eliquis -) 2.5 mg PO BID [facility] Last Admin: 11/04/17 10:40 Dose: 2.5 mg Buspirone HCl (Buspar -) 15 mg PO BID [facility] Last Admin: 11/04/17 10:39 Dose: 15 mg Diltiazem HCl (Cardizem Injection -) 10 mg IVPUSH Q4H PRN PRN Reason: TACHYCARDIA Last Admin: 10/21/17 06:13 Dose: 10 mg Docusate Sodium (Colace -) 100 mg PO BID [facility] Last Admin: 11/04/17 10:40 Dose: Not Given Hydroxyurea (Hydrea -) 500 mg PO BID@0600,1800 [facility] Last Admin: 11/04/17 06:44 Dose: 500 mg Dextrose/Sodium Chloride (D5-1/2ns -) 1,000 mls @ 150 mls/hr IV ASDIR [facility] Last Admin: 11/04/17 10:40 Dose: Not Given Ondansetron HCl (Zofran Injection) 4 mg IVPUSH Q4H PRN PRN Reason: NAUSEA AND/OR VOMITING Last Admin: 11/03/17 10:38 Dose: 4 mg Ondansetron HCl (Zofran Injection) 4 mg IVPUSH Q4H PRN PRN Reason: NAUSEA AND/OR VOMITING Propranolol HCl (Inderal La -) 120 mg PO DAILY [facility] Last Admin: 11/04/17 10:40 Dose: 120 mg Verapamil HCl (Calan Sr -) 180 mg PO BID [facility] Last Admin: 11/04/17 10:39 Dose: Not Given Last Vital Signs Temp Pulse Resp BP Pulse Ox 98.6 F 108 H 20 147/81 96 11/04/17 10:00 11/04/17 10:00 11/04/17 10:00 11/04/17 10:00 11/04/17 09:00 CBC, BMP 11/04/17 06:50 11/04/17 06:50 CKD s/p acute worsening tendency to hyperkalemia metabolic acidosis add sodium bicarbonate with meals 650 mg tid pc
[2017-11-07 14:14] LABS: VON WILLEBRAND ANTIGEN 202 % (50-200)
== END 2017-11-04 15:26 | disposition home or self-care (01) | DRG 308 ==
LOC: JER 18:31 → JERBED 23:53 → UNDOADMIN 10-17 00:19 → JERBED 10-17 00:19 → J4W 10-17 11:05
PROVIDERS: ADMIT Family Medicine; ATTEND Family Medicine
DX: I48.1 Persistent atrial fibrillation (principal); I50.31 Acute diastolic (congestive) heart failure; N17.9 Acute kidney failure, unspecified; I31.3 Pericardial effusion (noninflammatory); E87.0 Hyperosmolality and hypernatremia; I13.0 Hypertensive heart and chronic kidney disease with heart failure and stage 1 through stage 4 chronic kidney disease, or unspecified chronic kidney disease; E87.2 Acidosis; J98.11 Atelectasis; E78.5 Hyperlipidemia, unspecified; R51 Headache; E86.0 Dehydration; D47.3 Essential (hemorrhagic) thrombocythemia; R42 Dizziness and giddiness; I12.9 Hypertensive chronic kidney disease with stage 1 through stage 4 chronic kidney disease, or unspecified chronic kidney disease; N18.9 Chronic kidney disease, unspecified; F32.9 Major depressive disorder, single episode, unspecified; F41.9 Anxiety disorder, unspecified; I45.10 Unspecified right bundle-branch block; I27.20 Pulmonary hypertension, unspecified; I34.0 Nonrheumatic mitral (valve) insufficiency; I36.1 Nonrheumatic tricuspid (valve) insufficiency; T42.4X5A Adverse effect of benzodiazepines, initial encounter; T43.025A Adverse effect of tetracyclic antidepressants, initial encounter; E87.5 Hyperkalemia; N20.0 Calculus of kidney
CPT/HCPCS: 36415; 71045-TC-FY; 71275-TC; 74175-TC; 76775-TC; 76856-TC; 80048; 80053; 80061; 81003; 81015; 82040; 82550; 82962; 83690; 83721; 83735; 84439; 84443; 84484; 85025; 85246; 85247; 85610; 87040; 93005; 93010; 93306-TC; 93970-TC; 97116-GP; 97161-GP; 99285-25; J8999

== ENCOUNTER 2017-11-07 18:21 | Inpatient (IN) | payer OTHER, BC ==
[2017-11-07 18:44] VITALS: BMI 22.8
--- NOTE | 2017-11-07 18:44 | PDOC ---
Rapid Medical Evaluation Chief Complaint: Shortness of Breath Time Seen by Provider: 11/07/17 18:38 Medical Evaluation: Allergies Allergy/AdvReac Type Severity Reaction Status Date / Time KILO Inhibitors Allergy Verified 11/07/17 18:37 promethazine Allergy Verified 11/07/17 18:37 cloreciden Allergy Uncoded 11/07/17 18:37 11/07/17 18:38 The patient presents with a chief complaint of: SOB, agitation, bilateral lower leg edema, weight gain, weakness since Monday after being discharged from the hospital. Recently had BP meds changed. I have performed a brief in-person evaluation of this patient. Pertinent physical exam findings: BP 134/91, bilateral lower extremity + 1 edema, lungs clear , irregular rhythmn I have ordered the following: cbc, cmp, bnp, cardiac panel, PT/PTT/ INR Chest Xray. EKG] The patient will proceed to the ED for further evaluation. 11/07/17 18:42 Discharge Disposition - Diagnosis Shortness of breath - Referrals - Patient Instructions - Post Discharge Activity
[2017-11-07] MEDS ORDERED: ASPIRIN 81 MG CHEWABLE TABLETS ONE (19:13)
[2017-11-07 19:53] LABS: BASO % 0.6 % (0-2.0); EOS % 0.1 % (0-4.5); HEMATOCRIT 40.2 % (32.4-45.2); LYMPH % 23.1 % (8-40); MCH 23.6 pg (25.7-33.7); MCHC 32.3 g/dl (32.0-36.0); MEAN PLT VOLUME 7.4 fl (7.5-11.1); MONO % 7.5 % (3.8-10.2); NEUT % 68.7 % (42.8-82.8); PLATELET COUNT 1033 K/MM3 (134-434); RBC 5.51 M/mm3 (3.60-5.2); WHITE BLOOD COUNT 12.6 K/mm3 (4.0-10.0)
[2017-11-07 20:21] LABS: ALBUMIN 3.5 g/dl (3.4-5.0); ANION GAP 10 (8-16); BILIRUBIN,TOTAL 1.1 mg/dL (0.2-1.0); BLOOD UREA NITROGEN 33 mg/dL (7-18); CALCIUM 8.3 mg/dL (8.5-10.1); CHLORIDE 113 mmol/L (98-107); CO2 22 mmol/L (21-32); GLUCOSE,RANDOM 113 mg/dL (74-106); POTASSIUM 5.7 mmol/L (3.5-5.1); SGOT/AST 43 U/L (15-37); SGPT/ALT 108 U/L (12-78); SODIUM 145 mmol/L (136-145); TOT PROT 6.1 g/dl (6.4-8.2)
[2017-11-07 20:23] LABS: ALK PHOS 130 U/L (45-117); N-TERMINAL BNP 8358.46 pg/ml (5-450)
[2017-11-07 21:00] LABS: INR 2.32 (0.82-1.09); PROTHROMBIN TIME (PATIENT) 26.2 SEC (9.98-11.88)
--- NOTE | 2017-11-07 21:09 | PDOC ---
History of Present Illness - General Chief Complaint: Shortness of Breath Stated Complaint: S.O.B Time Seen by Provider: 11/07/17 18:38 History Source: Patient, Family - History of Present Illness Initial Comments: 11/07/17 21:10 Pt c/o worsening SOB. Pt was admitted and discharged a few days. Pt denies cp. family says that pt was weight by visiting nurse and she weighs 15lbs. Past History - Past Medical History Allergies/Adverse Reactions: Allergies Allergy/AdvReac Type Severity Reaction Status Date / Time KILO Inhibitors Allergy Verified 11/07/17 18:37 promethazine Allergy Verified 11/07/17 18:37 cloreciden Allergy Uncoded 11/07/17 18:37 Home Medications: Ambulatory Orders Acetaminophen [Tylenol .Regular Strength -] 650 mg PO Q6H PRN tablet 11/04/17 Apixaban [Eliquis -] 2.5 mg PO BID tablet 11/04/17 Buspirone HCl [Buspar -] 15 mg PO BID #60 tablet 11/04/17 Hydroxyurea [Hydrea 500Mg Capsule -] 500 mg PO BID@0600,1800 #60 capsule Verapamil HCl ER [Calan Sr -] 180 mg PO BID #30 tablet.er 11/04/17 propRANOLol HCL [Inderal LA -] 120 mg PO DAILY #30 capsule.er 11/04/17 Anemia: Yes Asthma: No Cancer: No Cardiac Disorders: Yes ("irregular heartbeat") CVA: No COPD: No CHF: No Dementia: No Diabetes: No GI Disorders: No Disorders: Yes (kidney stones) HTN: Yes Hypercholesterolemia: Yes Kidney Stones: Yes Liver Disease: No Seizures: No Thyroid Disease: Yes (Parathyroid surgery) - Surgical History Abdominal Surgery: No Appendectomy: No Cardiac Surgery: No Cholecystectomy: No Lung Surgery: No Neurologic Surgery: No Orthopedic Surgery: Yes (s/p right rotator cuff repair) - Immunization History Immunization Up to Date: Yes - Suicide/Smoking/Psychosocial Hx Smoking History: Never smoked Have you smoked in the past 12 months: No Information on smoking cessation initiated: No Hx Alcohol Use: No Drug/Substance Use Hx: No Substance Use Type: None Hx Substance Use Treatment: No *Physical Exam - Vital Signs Last Vital Signs Temp Pulse Resp BP Pulse Ox 97.4 F L 79 16 134/91 99 11/07/17 18:37 11/07/17 18:37 11/07/17 18:37 11/07/17 18:37 11/07/17 18:37 - Physical Exam Comments: 11/07/17 21:12 *Physical Exam General Appearance: Yes: Appropriately Dressed. No: Apparent Distress, Intoxicated HEENT: positive: EOMI, FLAVIO, Normal ENT Inspection, Normal Voice, TMs Normal, Pharynx Normal. negative: Pale Conjunctivae, Photophobia, Scleral Icterus (R), Scleral Icterus (L) Neck: positive: Trachea midline, Normal Thyroid, Supple. negative: Tender, Rigid, Carotid bruit, Stridor, Lymphadenopathy (R), Lymphadenopathy (L), Thyromegaly Respiratory/Chest: positive: Lungs Clear,decreased Breath Sounds. negative: Chest Tender, Respiratory Distress, Accessory Muscle Use, Labored Respiration, RES, Crackles, Rales, Rhonchi, Stridor, Wheezing, Dullness Cardiovascular: positive: Regular Rhythm, Regular Rate, S1, S2. negative: Edema , JVD, Murmur, Bradycardia, Tachycardia Vascular Pulses: Dorsalis-Pedis (R): 2+, Doralis-Pedis (L): 2+ Gastrointestinal/Abdominal: positive: Normal Bowel Sounds, Flat, Soft. negative : Tender, Organomegaly, Pulsatile Mass, Increased Bowel Sounds, Decreased BS, Distended, Guarding, Rebound, Hernia, Hepatomegaly, Spleenomegaly Lymphatic: negative: Adenopathy, Tenderness Musculoskeletal: positive: Normal Inspection. negative: CVA Tenderness, Decreased Range of Motion Extremity: positive: Normal Capillary Refill, Normal Inspection, Normal Range of Motion, Pelvis Stable. negative: Tender, Pedal Edema, Swelling, Erythema Integumentary: positive: Normal Color, Dry, Warm. negative: Cyanotic, Erythema , Jaundice, Rash Neurologic: positive: technology integration specialist II-XII NML intact, Fully Oriented, Alert, Normal Mood/ Affect, Motor Strength 5/5. negative: EOM Palsy, Facial Droop, Sensory Deficit Heart Score/ECG Review - History History: Moderately suspicious - Age Age: >/= 65 - Risk Factors Risk Factors Heart Score: Yes Hx Hypertension, Yes Hx Diabetes Based on the list above the patient has:: >/=3 risk factors or Hx atherosclerotic disease - ECG Intrepretation Rhythm: Irregularly Irregular - Marmora Marmora: Left Marmora Deviation - ST and T Prolonged Q-T Interval: No - ECG Impressions Normal ECG: No Non-specific ST Elevation: No Ischemic Changes: No Tachycardia: Afib w/controlled rate Torsades wilmer Pointes: No WPW: No ED Treatment Course - LABORATORY CBC & Chemistry Diagram: 11/07/17 19:33 11/07/17 19:33 - ADDITIONAL ORDERS Additional order review: Laboratory Results 11/07/17 11/07/17 19:33 19:33 PT with INR Cancelled INR Cancelled PTT (Actin FS) Cancelled Sodium 145 Potassium 5.7 H Chloride 113 H Carbon Dioxide 22 Anion Gap 10 BUN 33 H Creatinine 2.0 H Creat Clearance w eGFR 23.79 Random Glucose 113 H Calcium 8.3 L Total Bilirubin 1.1 H D AST 43 H ALT 108 H Alkaline Phosphatase 130 H Creatine Kinase 57 Troponin I 0.05 B-Natriuretic Peptide 8358.46 H Total Protein 6.1 L Albumin 3.5 11/07/17 19:33 RBC 5.51 H MCV 73.0 L MCHC 32.3 RDW 18.0 H MPV 7.4 L Neutrophils % 68.7 Lymphocytes % 23.1 D Monocytes % 7.5 Eosinophils % 0.1 D Basophils % 0.6 *DC/Admit/Observation/Transfer Diagnosis at time of Disposition: Shortness of breath, Atrial fibrillation, CHF (congestive heart failure) - Discharge Dispostion Condition at time of disposition: Stable Admit: Yes - Referrals Referrals: Rajni Roca MD [Primary Care Provider] - - Patient Instructions - Post Discharge Activity
[2017-11-07] MEDS ORDERED: FUROSEMIDE 40 MG/4 ML INJECTABLE VIAL IVPUSH ONE (21:14)
[2017-11-07 21:58] LABS: PLATELET ESTIMATE SIGNIFICANT INCREASE
[2017-11-07 22:10] LABS: URINE APPEARANCE SLCLOUDY; URINE BLOOD 1+ (NEGATIVE); URINE COLOR DKYELLOW; URINE GLUCOSE (UA) NEGATIVE (NEGATIVE); URINE KETONE NEGATIVE (NEGATIVE); URINE LEUK ESTERASE TRACE (NEGATIVE); URINE NITRITE NEGATIVE (NEGATIVE); URINE UROBILINOGEN 4.0 E.U/dl mg/dL (0.2-1.0)
[2017-11-07 22:12] LABS: URINE PROTEIN 2+ (NEGATIVE)
[2017-11-07] MEDS ORDERED: FUROSEMIDE 40 MG/4 ML INJECTABLE VIAL ONE ×2 (22:16→22:21)
[2017-11-07 22:32] LABS: EPI CELLS RARE /HPF (FEW); URINE HYALINE CAST 1 /lpf; URINE MUCUS RARE
--- NOTE | 2017-11-07 23:08 | HP ---
Admitting History and Physical - Admission Chief Complaint: sob. LE edema History of Present Illness: 82 y/o F with PMH of recent admission for symptomatic A fib with RVR, difficult to control; complicated by ISMAEL on CKD ( baseline Cr 1.8-2.0) and panic attacks / anxiety. She come to ER today with LE edema and increased SOB. ER evaluation found to be in HF. History Source: Patient, Family Member, Medical Record Limitations to Obtaining History: Clinical Condition - Past Medical History Cardiovascular: Yes: HTN, Hyperlipdemia, Murmur, Other (TR) Pulmonary: Yes: Pneumonia (admitted for bilat PNA) Renal/: Yes: Renal Inusuff, Renal Calculi Reproductive: Yes: Postmenopausal Heme/Onc: Yes: Myeloproliferative Synd, Other (thrombocythemia) Psych: Yes: Anxiety - Smoking History Smoking history: Never smoked Have you smoked in the past 12 months: No - Alcohol/Substance Use Hx Alcohol Use: No - Social History Usual Living Arrangement: Yes: With Child ADL: Support Services History of Recent Travel: No Home Medications - Allergies Allergies/Adverse Reactions: Allergies Allergy/AdvReac Type Severity Reaction Status Date / Time KILO Inhibitors Allergy Verified 11/07/17 18:37 promethazine Allergy Verified 11/07/17 18:37 cloreciden Allergy Uncoded 11/07/17 18:37 - Home Medications Home Medications: Ambulatory Orders Acetaminophen [Tylenol .Regular Strength -] 650 mg PO Q6H PRN tablet 11/04/17 Apixaban [Eliquis -] 2.5 mg PO BID tablet 11/04/17 Buspirone HCl [Buspar -] 15 mg PO BID #60 tablet 11/04/17 Hydroxyurea [Hydrea 500Mg Capsule -] 500 mg PO BID@0600,1800 #60 capsule Verapamil HCl ER [Calan Sr -] 180 mg PO BID #30 tablet.er 11/04/17 propRANOLol HCL [Inderal LA -] 120 mg PO DAILY #30 capsule.er 11/04/17 Review of Systems - Review of Systems Constitutional: reports: Weakness Eyes: reports: No Symptoms HENT: reports: No Symptoms Neck: reports: No Symptoms Cardiovascular: reports: Edema, Shortness of Breath. denies: Chest Pain, Palpitations Respiratory: reports: Exercise Intolerance, SOB, SOB on Exertion. denies: Cough , Hemoptysis Gastrointestinal: reports: No Symptoms Genitourinary: reports: No Symptoms Breasts: reports: No Symptoms Reported Musculoskeletal: reports: Extremity Pain Integumentary: reports: No Symptoms Neurological: reports: No Symptoms Endocrine: reports: No Symptoms Hematology/Lymphatic: reports: No Symptoms Psychiatric: reports: Anxiety Physical Examination Vital Signs: Vital Signs Temperature 97.4 F L 11/07/17 18:37 Pulse Rate 79 11/07/17 18:37 Respiratory Rate 16 11/07/17 18:37 Blood Pressure 134/91 11/07/17 18:37 O2 Sat by Pulse Oximetry (%) 99 11/07/17 18:37 Constitutional: Yes: Anxious, Mild Distress Eyes: Yes: Conjunctiva Clear. No: Sclera Icterus HENT: Yes: WNL, Atraumatic Neck: Yes: WNL, Supple Cardiovascular: Yes: Pulse Irregular, Murmur Respiratory: Yes: Rales Gastrointestinal: Yes: Normal Bowel Sounds, Soft ...Rectal Exam: Yes: Deferred Breast(s): Yes: WNL Musculoskeletal: Yes: WNL Extremities: Yes: Internal Rotation Edema: Yes Edema: LLE: 2+, RLE: 2+ Peripheral Pulses WNL: Yes Integumentary: Yes: WNL Wound/Incision: Yes: Clean/Dry Neurological: Yes: Alert, Oriented, Pre-Existing Deficit Psychiatric: Yes: Alert, Oriented Labs: CBC, BMP 11/07/17 19:33 11/07/17 19:33 Problem List - Problems (1) CHF (congestive heart failure) Assessment/Plan: progressive Inc LE edema progressive inc in SOB IV lasix daily weights trend renal function Cardiology follow up Echo done prior hosp stay Code(s): I50.9 - HEART FAILURE, UNSPECIFIED (2) Atrial fibrillation Assessment/Plan: rate controlled on current meds Code(s): I48.91 - UNSPECIFIED ATRIAL FIBRILLATION Qualifiers: (3) Shortness of breath Assessment/Plan: 2/2 to HF Code(s): R06.02 - SHORTNESS OF BREATH (4) HLD (hyperlipidemia) Code(s): E78.5 - HYPERLIPIDEMIA, UNSPECIFIED (5) Thrombocythemia Assessment/Plan: on hydroxyurea rcently inc to BID Code(s): D47.3 - ESSENTIAL (HEMORRHAGIC) THROMBOCYTHEMIA
[2017-11-07] MEDS ORDERED: ACETAMINOPHEN 325 MG TABLET (FP) PO PRN (23:17)
[2017-11-07] MEDS ORDERED: busPIRone HCL 5 MG TABLET ONE (23:27)
[2017-11-07] MEDS: busPIRone HCL 5 MG TABLET PO SCH (23:35)
[2017-11-08] MEDS: DOCUSATE SODIUM 100 MG CAPSULE (FP) PO SCH ×4 (01:01→22:13)
[2017-11-08] MEDS: HYDROXYUREA 500 MG CAPSULE PO SCH ×3 (01:01→22:13)
[2017-11-08] MEDS: APIXABAN 2.5 MG TABLET PO SCH ×3 (01:01→22:13)
[2017-11-08] MEDS: VERAPAMIL HCL 180 MG E.R. TABLET (FP) PO SCH ×3 (01:01→22:24)
[2017-11-08] MEDS: FUROSEMIDE 40 MG/4 ML INJECTABLE VIAL IVPUSH SCH ×2 (06:03→14:00)
[2017-11-08] MEDS ORDERED: FUROSEMIDE 40 MG/4 ML INJECTABLE VIAL ONE (07:07)
[2017-11-08 07:21] LABS: HEMATOCRIT 40.4 % (32.4-45.2); HEMOGLOBIN 13.1 GM/dL (10.7-15.3); MCH 23.2 pg (25.7-33.7); MCHC 32.3 g/dl (32.0-36.0); MEAN PLT VOLUME 7.2 fl (7.5-11.1); PLATELET COUNT 1072 K/MM3 (134-434); RBC 5.62 M/mm3 (3.60-5.2); WHITE BLOOD COUNT 15.3 K/mm3 (4.0-10.0)
[2017-11-08 07:40] LABS: ANION GAP 12 (8-16); BLOOD UREA NITROGEN 36 mg/dL (7-18); CALCIUM 8.8 mg/dL (8.5-10.1); CHLORIDE 110 mmol/L (98-107); CO2 23 mmol/L (21-32); GLUCOSE,RANDOM 102 mg/dL (74-106); MAGNESIUM 1.8 mg/dL (1.8-2.4); SODIUM 145 mmol/L (136-145)
[2017-11-08] MEDS ORDERED: busPIRone HCL 5 MG TABLET ONE (09:33)
[2017-11-08] MEDS: busPIRone HCL 5 MG TABLET PO SCH ×2 (10:05→22:13)
[2017-11-08] MEDS: PANTOPRAZOLE SOD 40 MG SUSPENSION PACKET NGT SCH (10:05)
--- NOTE | 2017-11-08 10:39 | EKG ---
Test Reason : Blood Pressure : / mmHG Vent. Rate : 088 BPM Atrial Rate : 220 BPM P-R Int : 000 ms QRS Dur : 118 ms QT Int : 428 ms P-R-T Axes : 000 070 139 degrees QTc Int : 517 ms ATRIAL FIBRILLATION RIGHT BUNDLE BRANCH BLOCK SEPTAL INFARCT , AGE UNDETERMINED ABNORMAL ECG WHEN COMPARED WITH ECG OF 17-OCT-2017 09:47, SEPTAL INFARCT IS NOW PRESENT INVERTED T WAVES HAVE REPLACED NONSPECIFIC T WAVE ABNORMALITY IN LATERAL LEADS Confirmed by IAIN ESCOBAR MD ([id number]) on 11/08/2017 10:39:24 AM Referred By: Confirmed By:IAIN ESCOBAR MD
--- NOTE | 2017-11-08 11:20 | EKG ---
Test Reason : Blood Pressure : / mmHG Vent. Rate : 097 BPM Atrial Rate : 097 BPM P-R Int : 000 ms QRS Dur : 118 ms QT Int : 420 ms P-R-T Axes : 000 051 -80 degrees QTc Int : 533 ms sinus rhythm 1 st degree AVB RIGHT BUNDLE BRANCH BLOCK T WAVE ABNORMALITY, CONSIDER INFERIOR ISCHEMIA ABNORMAL ECG Confirmed by IAIN ESCOBAR MD ([id number]) on 11/08/2017 11:19:43 AM Referred By: VICKY VALLE DR Confirmed By:IAIN ESCOBAR MD
--- NOTE | 2017-11-08 11:30 | CON.CARD ---
Cardiology Consult (text) - Consultation Consultation Note: CC:le edema hpi: 82 yo f with pmhx of HTN, HLD, afib here with le edema. Recent long admit for afib with rvr, dehydration, psych issues. Went home and over past few days noticed le edema. No cp, sob, palps, dizzy, loc, pnd, orthopnea. Got iv lasix in er and le edema better. pmhx/pshx: per hpi, Parathyroid gland removal, rotator cuff surgery. social hx: Never smoked fam hx: no premature cad. ros: per hpi; no nvd, cough, nasal congestion, pacheco, vision changes, muscle pains , gib, hematuria, dysuria meds: Home Medications Medication Instructions Recorded Acetaminophen [Tylenol .Regular 650 mg PO Q6H PRN tablet 11/04/17 Strength -] Apixaban [Eliquis -] 2.5 mg PO BID tablet 11/04/17 Buspirone HCl [Buspar -] 15 mg PO BID #60 tablet 11/04/17 Hydroxyurea [Hydrea 500Mg Capsule 500 mg PO BID@0600,1800 #60 capsule 11/04/17 -] Verapamil HCl ER [Calan Sr -] 180 mg PO BID #30 tablet.er 11/04/17 propRANOLol HCL [Inderal LA -] 120 mg PO DAILY #30 capsule.er 11/04/17 Vital Signs Period Temp Pulse Resp BP Sys/[place] Pulse Ox Last 24 Hr 97.4 F-98.1 F 79-98 16-16 126-148/76-91 99-100 nad, calm, lying flat jvd flat, neck supple cta bl nl eff irregularly, irregular nl s1, s2 . 2/6 sys murmur at sternal border and apex ND PMI + bs soft nt nd, no hsm ext with no c/c + dp/pt, no carotid bruit aa0x3 no jaundice, diaphoesis trace le edema bl Laboratory Last Values WBC 15.3 K/mm3 (4.0-10.0) H 11/08/17 06:24 RBC 5.62 M/mm3 (3.60-5.2) H 11/08/17 06:24 Hgb 13.1 GM/dL (10.7-15.3) 11/08/17 06:24 Hct 40.4 % (32.4-45.2) 11/08/17 06:24 MCV 72.0 fl (80-96) L 11/08/17 06:24 MCH 23.2 pg (25.7-33.7) L 11/08/17 06:24 MCHC 32.3 g/dl (32.0-36.0) 11/08/17 06:24 RDW 18.0 % (11.6-15.6) H 11/08/17 06:24 Plt Count 1072 K/MM3 (134-434) H 11/08/17 06:24 MPV 7.2 fl (7.5-11.1) L 11/08/17 06:24 Neutrophils % 68.7 % (42.8-82.8) 11/07/17 19:33 Lymphocytes % 23.1 % (8-40) D 11/07/17 19:33 Monocytes % 7.5 % (3.8-10.2) 11/07/17 19:33 Eosinophils % 0.1 % (0-4.5) D 11/07/17 19:33 Basophils % 0.6 % (0-2.0) 11/07/17 19:33 Platelet Estimate Significant increase 11/07/17 19:33 Platelet Comment No clotting detected 11/07/17 19:33 PT with INR 26.20 SEC (9.98-11.88) H 11/07/17 20:12 INR 2.32 (0.82-1.09) H D 11/07/17 20:12 PTT (Actin FS) 38.3 SECONDS (26.9-34.4) H 11/07/17 20:12 Sodium 145 mmol/L (136-145) 11/08/17 06:24 Potassium 5.0 mmol/L (3.5-5.1) 11/08/17 06:24 Chloride 110 mmol/L (98-107) H 11/08/17 06:24 Carbon Dioxide 23 mmol/L (21-32) 11/08/17 06:24 Anion Gap 12 (8-16) 11/08/17 06:24 BUN 36 mg/dL (7-18) H 11/08/17 06:24 Creatinine 2.0 mg/dL (0.55-1.02) H 11/08/17 06:24 Creat Clearance w eGFR 23.79 (>60) 11/07/17 19:33 Random Glucose 102 mg/dL (74-106) 11/08/17 06:24 Calcium 8.8 mg/dL (8.5-10.1) 11/08/17 06:24 Magnesium 1.8 mg/dL (1.8-2.4) 11/08/17 06:24 Total Bilirubin 1.1 mg/dL (0.2-1.0) H D 11/07/17 19:33 AST 43 U/L (15-37) H 11/07/17 19:33 ALT 108 U/L (12-78) H 11/07/17 19:33 Alkaline Phosphatase 130 U/L (45-117) H 11/07/17 19:33 Creatine Kinase 57 IU/L (26-192) 11/07/17 19:33 Troponin I 0.05 ng/ml (0.00-0.05) 11/07/17 19:33 B-Natriuretic Peptide 8358.46 pg/ml (5-450) H 11/07/17 19:33 Total Protein 6.1 g/dl (6.4-8.2) L 11/07/17 19:33 Albumin 3.5 g/dl (3.4-5.0) 11/07/17 19:33 Urine Color Dkyellow 11/07/17 20:43 Urine Appearance Slcloudy 11/07/17 20:43 Urine pH 5.0 (5.0-8.0) 11/07/17 20:43 Ur Specific [place] 1.020 (1.001-1.035) 11/07/17 20:43 Urine Protein 2+ (NEGATIVE) H 11/07/17 20:43 Urine Glucose (UA) Negative (NEGATIVE) 11/07/17 20:43 Urine Ketones Negative (NEGATIVE) 11/07/17 20:43 Urine Blood 1+ (NEGATIVE) H 11/07/17 20:43 Urine Nitrite Negative (NEGATIVE) 11/07/17 20:43 Urine Bilirubin 2.0 (NEGATIVE) 11/07/17 20:43 Urine Urobilinogen 4.0 e.u/dl mg/dL (0.2-1.0) H 11/07/17 20:43 Ur Leukocyte Esterase Trace (NEGATIVE) 11/07/17 20:43 Urine WBC (Auto) 11 /hpf (3-5) 11/07/17 20:43 Urine RBC (Auto) 69 /hpf (0-3) 11/07/17 20:43 Ur Epithelial Cells Rare /HPF (FEW) 11/07/17 20:43 Hyaline Casts 1 /lpf 11/07/17 20:43 Urine Mucus Rare 11/07/17 20:43 ecg: afib, rate controlled, old rbbb cxr: no chf echo 10/2017: 1+ lvh, lv sys fn is low normal. grade 2 diastolic dysfunction. rv size/fn. mod lae. mod-sev patsy. mild-mod ar. mod mr. sev tr, mod phtn. A/P 82 yo f with pmhx of HTN, HLD, afib here with le edema. acute diastolic chf, moderate MR, severe TR, mod pHTN: -mild vol overload -cont iv lasix today, likely change to po tomorrow for maintenance. would start with 20 po qd. -no signs acs afib - hr controlled on verapamil 180 bid with inderal 80 qd. - continue eliquis htn -controlled on current meds ISMAEL on CKD: - baseline creat 1.2-1.3 (08/20) - cr up a bit here now, possibly cardiorenal?, observe trend with iv lasix
--- NOTE | 2017-11-08 20:12 | PN ---
Progress Note (short form) - Note Progress Note: seen and examined in room "feeling better" less edema to LE Vital Signs Period Temp Pulse Resp BP Sys/Murdock Pulse Ox Last 24 Hr 97.5 F-98.1 F 77-98 16-18 106-148/63-83 99-100 heart S1/S2 lungs rales at bases abd soft non tender Ext +1 edema / no calf tendernes CBC, BMP 11/08/17 06:24 11/08/17 06:24 Active Medications Acetaminophen (Tylenol -) 650 mg PO Q6H PRN PRN Reason: PAIN LEVEL 1-5 Apixaban (Eliquis -) 2.5 mg PO BID [facility] Last Admin: 11/08/17 10:05 Dose: 2.5 mg Buspirone HCl (Buspar -) 15 mg PO BID [facility] Last Admin: 11/08/17 10:05 Dose: 15 mg Docusate Sodium (Colace -) 100 mg PO TID [facility] Last Admin: 11/08/17 14:00 Dose: Not Given Furosemide (Lasix Injection -) 40 mg IVPUSH BID@0600,1400 [facility] Last Admin: 11/08/17 14:00 Dose: Not Given Hydroxyurea (Hydrea -) 500 mg PO BID [facility] Last Admin: 11/08/17 10:05 Dose: 500 mg Pantoprazole Sodium (Protonix Packets For Oral Suspension -) 40 mg NGT DAILY [facility] Last Admin: 11/08/17 10:05 Dose: 40 mg Propranolol HCl (Inderal La -) 120 mg PO DAILY [facility] Last Admin: 11/08/17 10:05 Dose: 120 mg Verapamil HCl (Calan Sr -) 180 mg PO BID [facility] Last Admin: 11/08/17 10:05 Dose: 180 mg assmt/plan # HF acute diastolic / fluid overload known to have severe TR / MR/ pHTN from recent echo IV lasix -trend renal function daily weight significant improvement change lasix to PO in am # A Fib rate controlled continue Verapamil 180 BID and Inderal 120mg qd continue a/c --Eliquis # CKD baseline 1.3 ( 08/21) recent hospitalization 1.5-1.9 will trend # thrombocythemia baseline 600-700K continue hydroxyurea, recently inc to BID Problem List - Problems (1) CHF (congestive heart failure) Code(s): I50.9 - HEART FAILURE, UNSPECIFIED (2) Atrial fibrillation Code(s): I48.91 - UNSPECIFIED ATRIAL FIBRILLATION Qualifiers: (3) Shortness of breath Code(s): R06.02 - SHORTNESS OF BREATH (4) HLD (hyperlipidemia) Code(s): E78.5 - HYPERLIPIDEMIA, UNSPECIFIED (5) Thrombocythemia Code(s): D47.3 - ESSENTIAL (HEMORRHAGIC) THROMBOCYTHEMIA
[2017-11-09] MEDS: DOCUSATE SODIUM 100 MG CAPSULE (FP) PO SCH ×3 (05:49→21:18)
[2017-11-09] MEDS: FUROSEMIDE 40 MG/4 ML INJECTABLE VIAL IVPUSH SCH (05:49)
[2017-11-09 06:37] LABS: HEMATOCRIT 37.4 % (32.4-45.2); HEMOGLOBIN 12.3 GM/dL (10.7-15.3); LYMPH % 27.5 % (8-40); MCH 23.3 pg (25.7-33.7); MCHC 32.7 g/dl (32.0-36.0); MEAN CELL VOLUME 71.2 fl (80-96); MEAN PLT VOLUME 7.2 fl (7.5-11.1); MONO % 6.9 % (3.8-10.2); NEUT % 65.6 % (42.8-82.8); PLATELET COUNT 845 K/MM3 (134-434); RBC 5.25 M/mm3 (3.60-5.2); RDW 18.1 % (11.6-15.6); WHITE BLOOD COUNT 12.1 K/mm3 (4.0-10.0)
[2017-11-09 08:01] LABS: CHLORIDE 106 mmol/L (98-107); POTASSIUM 4.6 mmol/L (3.5-5.1); SODIUM 145 mmol/L (136-145)
[2017-11-09 08:07] LABS: ANION GAP 14 (8-16); BLOOD UREA NITROGEN 36 mg/dL (7-18); CALCIUM 8.4 mg/dL (8.5-10.1); CO2 25 mmol/L (21-32); CREATININE 2.1 mg/dL (0.55-1.02); GLUCOSE,RANDOM 79 mg/dL (74-106); MAGNESIUM 2.1 mg/dL (1.8-2.4)
[2017-11-09] MEDS ORDERED: PT OWN MED DRAWER 7, Y5N ONE (08:57)
[2017-11-09] MEDS: HYDROXYUREA 500 MG CAPSULE PO SCH ×2 (09:31→21:17)
[2017-11-09] MEDS: busPIRone HCL 5 MG TABLET PO SCH ×2 (09:31→21:17)
[2017-11-09] MEDS: VERAPAMIL HCL 180 MG E.R. TABLET (FP) PO SCH ×2 (09:32→21:18)
[2017-11-09] MEDS: PANTOPRAZOLE SOD 40 MG SUSPENSION PACKET NGT SCH (09:32)
[2017-11-09] MEDS: APIXABAN 2.5 MG TABLET PO SCH ×2 (09:32→21:16)
--- NOTE | 2017-11-09 11:41 | PN ---
Progress Note (short form) - Note Progress Note: s: no cp sob palps dizzy o: Vital Signs Period Temp Pulse Resp BP Sys/Murdock Pulse Ox Last 24 Hr 97.7 F-99 F 80-112 18-18 119-140/63-90 97-100 nad, calm, lying flat jvd flat, neck supple cta bl nl eff irregularly, irregular nl s1, s2 . 2/6 sys murmur at sternal border and apex + bs soft nt nd, no hsm aa0x3 no jaundice, diaphoesis no le edema bl Current Medications Generic Name Dose Route Start Last Admin Trade Name Freq PRN Reason Stop Dose Admin Acetaminophen 650 mg 11/07/17 23:17 Tylenol - PO Q6H PRN PAIN LEVEL 1-5 Apixaban 2.5 mg 11/07/17 23:30 11/09/17 09:32 Eliquis - PO 2.5 mg BID ANKIT Administration Buspirone HCl 15 mg 11/07/17 23:15 11/09/17 09:31 Buspar - PO 15 mg BID ANKIT Administration Docusate Sodium 100 mg 11/07/17 23:30 11/09/17 05:49 Colace - PO 100 mg TID NAKIT Administration Furosemide 40 mg 11/10/17 10:00 Lasix - PO DAILY ANKIT Hydroxyurea 500 mg 11/07/17 23:30 11/09/17 09:31 Hydrea - PO 500 mg BID ANKIT Administration Pantoprazole Sodium 40 mg 11/08/17 10:00 11/09/17 09:32 Protonix Packets For Oral Suspension - NGT 40 mg DAILY ANKIT Administration Propranolol HCl 120 mg 11/08/17 10:00 11/09/17 09:31 Inderal La - PO 120 mg DAILY ANKIT Administration Verapamil HCl 180 mg 11/07/17 23:30 11/09/17 09:32 Calan Sr - PO 180 mg BID ANKIT Administration CBC, BMP 11/09/17 05:05 11/09/17 05:05 ecg: afib, rate controlled, old rbbb cxr: no chf echo 10/2017: 1+ lvh, lv sys fn is low normal. grade 2 diastolic dysfunction. rv size/fn. mod lae. mod-sev patsy. mild-mod ar. mod mr. sev tr, mod phtn. tele: rate controlled afib A/P 82 yo f with pmhx of HTN, HLD, afib here with le edema. acute diastolic chf, moderate MR, severe TR, mod pHTN: -mild vol overload, now resolved after several doses of iv lasix. will change to lasix 40 po qd. -no signs acs afib - hr controlled on verapamil 180 bid with inderal 80 qd. - continue eliquis htn -controlled on current meds ISMAEL on CKD: - baseline creat 1.2-1.3 (08/20) - cr up a bit here now, possibly cardiorenal?, observe trend with iv lasix
--- NOTE | 2017-11-09 16:04 | PN ---
Progress Note (short form) - Note Progress Note: 82 y/o AA female found lying in bed. Denies c/o pain and SOB. Vital Signs Period Temp Pulse Resp BP Sys/Murdock Pulse Ox Last 24 Hr 97.4 F-978.8 F 80-112 18-20 96-140/51-90 97-97 CBC, BMP 11/09/17 05:05 11/09/17 05:05 HEENT- NL Neck-supple Lungs- CTAB Heart-2/6 murmur Abd-soft, NT Ext- +1 pitting edema rt ft, 2+pitting edema lt ft Active Medications Acetaminophen (Tylenol -) 650 mg PO Q6H PRN PRN Reason: PAIN LEVEL 1-5 Apixaban (Eliquis -) 2.5 mg PO BID [facility] Last Admin: 11/09/17 09:32 Dose: 2.5 mg Buspirone HCl (Buspar -) 15 mg PO BID [facility] Last Admin: 11/09/17 09:31 Dose: 15 mg Docusate Sodium (Colace -) 100 mg PO TID [facility] Last Admin: 11/09/17 13:30 Dose: Not Given Furosemide (Lasix -) 40 mg PO DAILY [facility] Hydroxyurea (Hydrea -) 500 mg PO BID [facility] Last Admin: 11/09/17 09:31 Dose: 500 mg Pantoprazole Sodium (Protonix Packets For Oral Suspension -) 40 mg NGT DAILY [facility] Last Admin: 11/09/17 09:32 Dose: 40 mg Propranolol HCl (Inderal La -) 120 mg PO DAILY [facility] Last Admin: 11/09/17 09:31 Dose: 120 mg Verapamil HCl (Calan Sr -) 180 mg PO BID [facility] Last Admin: 11/09/17 09:32 Dose: 180 mg assmt/plan # HF acute diastolic / fluid overload known to have severe TR / MR/ pHTN from recent echo IV Lasix changed to PO- continue to trend renal function daily weight improved # A Fib rate controlled continue Verapamil 180 BID and Inderal 120mg qd continue a/c --Eliquis 2.5 mg BID # CKD baseline 1.3 ( 08/21) recent hospitalization 1.5-1.9 continue to trend # thrombocythemia baseline 600-700K continue hydroxyurea, recently inc to BID Problem List - Problems (1) CHF (congestive heart failure) Code(s): I50.9 - HEART FAILURE, UNSPECIFIED (2) Atrial fibrillation Code(s): I48.91 - UNSPECIFIED ATRIAL FIBRILLATION Qualifiers: (3) Shortness of breath Code(s): R06.02 - SHORTNESS OF BREATH (4) HLD (hyperlipidemia) Code(s): E78.5 - HYPERLIPIDEMIA, UNSPECIFIED (5) Thrombocythemia Code(s): D47.3 - ESSENTIAL (HEMORRHAGIC) THROMBOCYTHEMIA Problem List - Problems (1) CHF (congestive heart failure) Code(s): I50.9 - HEART FAILURE, UNSPECIFIED (2) Atrial fibrillation Code(s): I48.91 - UNSPECIFIED ATRIAL FIBRILLATION Qualifiers: (3) Shortness of breath Code(s): R06.02 - SHORTNESS OF BREATH (4) HLD (hyperlipidemia) Code(s): E78.5 - HYPERLIPIDEMIA, UNSPECIFIED (5) Thrombocythemia Code(s): D47.3 - ESSENTIAL (HEMORRHAGIC) THROMBOCYTHEMIA
[2017-11-10] MEDS: DOCUSATE SODIUM 100 MG CAPSULE (FP) PO SCH (06:04)
[2017-11-10 06:55] LABS: HEMATOCRIT 39.1 % (32.4-45.2); HEMOGLOBIN 12.6 GM/dL (10.7-15.3); LYMPH % 32.4 % (8-40); MCH 23.1 pg (25.7-33.7); MCHC 32.2 g/dl (32.0-36.0); MEAN CELL VOLUME 71.7 fl (80-96); MONO % 7.4 % (3.8-10.2); NEUT % 60.2 % (42.8-82.8); PLATELET COUNT 647 K/MM3 (134-434); RBC 5.46 M/mm3 (3.60-5.2); RDW 18.4 % (11.6-15.6); WHITE BLOOD COUNT 9.1 K/mm3 (4.0-10.0)
[2017-11-10 07:21] LABS: ANION GAP 10 (8-16); BLOOD UREA NITROGEN 37 mg/dL (7-18); CALCIUM 7.5 mg/dL (8.5-10.1); CHLORIDE 105 mmol/L (98-107); CO2 28 mmol/L (21-32); CREATININE 1.9 mg/dL (0.55-1.02); GLUCOSE,RANDOM 78 mg/dL (74-106); MAGNESIUM 1.8 mg/dL (1.8-2.4); POTASSIUM 3.9 mmol/L (3.5-5.1); SODIUM 143 mmol/L (136-145)
[2017-11-10] MEDS ORDERED: FUROSEMIDE 40 MG TABLET (FP) PO SCH (10:00)
[2017-11-10] MEDS: APIXABAN 2.5 MG TABLET PO SCH (10:06)
[2017-11-10] MEDS: VERAPAMIL HCL 180 MG E.R. TABLET (FP) PO SCH (10:06)
[2017-11-10] MEDS ORDERED: PT OWN MED DRAWER 7, Y5N ONE (10:06)
[2017-11-10] MEDS: PANTOPRAZOLE SOD 40 MG SUSPENSION PACKET NGT SCH (10:07)
[2017-11-10] MEDS: HYDROXYUREA 500 MG CAPSULE PO SCH (10:07)
[2017-11-10] MEDS: busPIRone HCL 5 MG TABLET PO SCH (10:07)
[2017-11-10 10:25] VITALS: BP 158/98; PULSE 95; TEMP 98.7
--- NOTE | 2017-11-10 10:45 | DS ---
Physical Examination Vital Signs: Vital Signs Temperature 98.7 F 11/10/17 10:00 Pulse Rate 95 H 11/10/17 10:00 Respiratory Rate 20 11/10/17 10:00 Blood Pressure 158/98 11/10/17 10:00 O2 Sat by Pulse Oximetry (%) 99 11/10/17 09:00 Findings/Remarks: 82 y/o F with PMH of recent admission for symptomatic A fib with RVR, difficult to control; complicated by ISMAEL on CKD ( baseline Cr 1.8-2.0) and panic attacks / anxiety. She come to ER today with LE edema and increased SOB. ER evaluation found to be in HF. Patient was treated with Iv lasix with clinical improvement - case discussed with cardiology. She remains rate controlled on current medications/ has improved wbc / platlets with hydroxyurea BID -- will now decrease to daily and follow levels as out patient. Will add diuretic to current out patient management and will arrange for close follow up. Constitutional: Yes: Well Nourished, No Distress, Anxious Eyes: Yes: Conjunctiva Clear, EOM Intact HENT: Yes: Atraumatic, Normocephalic Neck: Yes: Supple, Trachea Midline Cardiovascular: Yes: Pulse Irregular, Murmur Respiratory: Yes: CTA Bilaterally Gastrointestinal: Yes: Normal Bowel Sounds, Soft, Abdomen, Obese ...Rectal Exam: Yes: Deferred Renal/: Yes: WNL Breast(s): Yes: WNL Musculoskeletal: Yes: WNL Extremities: Yes: WNL Edema: No Peripheral Pulses WNL: Yes Integumentary: Yes: WNL Neurological: Yes: Alert, Oriented ...Motor Strength: WNL Psychiatric: Yes: Alert, Oriented, Other (anxious) Labs: CBC, BMP 11/10/17 06:15 11/10/17 06:15 Discharge Summary Reason For Visit: SHORTHNESS OF BREATH, CONGESTIVE HEART FAULURE Current Active Problems Atrial fibrillation (Acute) CHF (congestive heart failure) (Acute) Shortness of breath (Acute) Condition: Stable - Instructions Referrals: Rajni Roca MD [Primary Care Provider] - Disposition: HOME - Home Medications Comprehensive Discharge Medication List: Ambulatory Orders Acetaminophen [Tylenol .Regular Strength -] 650 mg PO Q6H PRN tablet 11/04/17 Apixaban [Eliquis -] 2.5 mg PO BID tablet 11/04/17 Buspirone HCl [Buspar -] 15 mg PO BID #60 tablet 11/04/17 Hydroxyurea [Hydrea 500Mg Capsule -] 500 mg PO daily Verapamil HCl ER [Calan Sr -] 180 mg PO BID #60 tablet.er 11/04/17 propRANOLol HCL [Inderal LA -] 120 mg PO DAILY #30 capsule.er 11/04/17 Lasix 40 mg q day
--- NOTE | 2017-11-10 11:13 | PN ---
Progress Note (short form) - Note Progress Note: s: no cp sob palps dizzy o: Vital Signs Period Temp Pulse Resp BP Sys/Murdock Pulse Ox Last 24 Hr 97.4 F-98.8 F 85-102 18-20 96-158/51-98 97-99 nad, calm jvd flat, neck supple cta bl nl eff irregularly, irregular nl s1, s2 . 2/6 sys murmur at sternal border and apex + bs soft nt nd, no hsm aa0x3 no jaundice, diaphoesis no le edema bl Current Medications Generic Name Dose Route Start Last Admin Trade Name Freq PRN Reason Stop Dose Admin Acetaminophen 650 mg 11/07/17 23:17 Tylenol - PO Q6H PRN PAIN LEVEL 1-5 Apixaban 2.5 mg 11/07/17 23:30 11/10/17 10:06 Eliquis - PO 2.5 mg BID ANKIT Administration Buspirone HCl 15 mg 11/07/17 23:15 11/10/17 10:07 Buspar - PO 15 mg BID ANKIT Administration Docusate Sodium 100 mg 11/07/17 23:30 11/10/17 06:04 Colace - PO 100 mg TID ANKIT Administration Furosemide 40 mg 11/10/17 10:00 11/10/17 10:07 Lasix - PO 40 mg DAILY ANKIT Administration Hydroxyurea 500 mg 11/11/17 10:00 Hydrea - PO DAILY ANKIT Pantoprazole Sodium 40 mg 11/08/17 10:00 11/10/17 10:07 Protonix Packets For Oral Suspension - NGT 40 mg DAILY ANKIT Administration Propranolol HCl 120 mg 11/08/17 10:00 11/10/17 10:06 Inderal La - PO 120 mg DAILY [facility] Administration Verapamil HCl 180 mg 11/07/17 23:30 11/10/17 10:06 Calan Sr - PO 180 mg BID ANKIT Administration CBC, BMP 11/10/17 06:15 11/10/17 06:15 ecg: afib, rate controlled, old rbbb cxr: no chf echo 10/2017: 1+ lvh, lv sys fn is low normal. grade 2 diastolic dysfunction. rv size/fn. mod lae. mod-sev patsy. mild-mod ar. mod mr. sev tr, mod phtn. tele: rate controlled afib A/P 82 yo f with pmhx of HTN, HLD, afib here with le edema. acute diastolic chf, moderate MR, severe TR, mod pHTN: -mild vol overload, now resolved after several doses of iv lasix. cont lasix 40 po qd. -no signs acs afib - hr controlled on verapamil 180 bid with inderal 80 qd. - continue eliquis htn -controlled on current meds ISMAEL on CKD: - baseline creat 1.2-1.3 (08/20) - cr up a bit here now, possibly cardiorenal?, observe trend with iv lasix ok for dc from cardiac pov
[2017-11-11] MEDS ORDERED: HYDROXYUREA 500 MG CAPSULE PO SCH (10:00)
== END 2017-11-10 14:36 | disposition home or self-care (01) | DRG 291 ==
LOC: JER 18:21 → JERBED 21:23 → J4W 11-08 14:44
PROVIDERS: ADMIT Family Medicine; ATTEND Family Medicine
DX: I13.0 Hypertensive heart and chronic kidney disease with heart failure and stage 1 through stage 4 chronic kidney disease, or unspecified chronic kidney disease (principal); I50.31 Acute diastolic (congestive) heart failure; D47.1 Chronic myeloproliferative disease; D64.9 Anemia, unspecified; I48.91 Unspecified atrial fibrillation; N18.9 Chronic kidney disease, unspecified; E78.5 Hyperlipidemia, unspecified; I36.1 Nonrheumatic tricuspid (valve) insufficiency; I34.0 Nonrheumatic mitral (valve) insufficiency; D47.3 Essential (hemorrhagic) thrombocythemia
CPT/HCPCS: 36415; 71046-TC-FY; 80048; 80053; 81003; 81015; 82550; 83735; 83880; 84484; 85025; 85027; 85610; 85730; 93005; 93010; 99285-25; J8999